=== PATIENT | male | born 2000 | race Caucasian/White ===

== ENCOUNTER 2022-12-22 17:26 | Inpatient (IN) ==
--- NOTE | 2022-12-22 17:34 | ED Triage Note ---
Date of Service December 22, 2022 History of Present Illness This patient was briefly evaluated while in triage. An abbreviated physical exam was performed. This patient is a 22-year-old Male who presents to the ED for evaluation of right-sided chest discomfort that he feels is intercostal pain. The patient r eports that he has not been doing any recent lifting or other strenuous activities. The pain radiates into the right shoulder blade region. Patient reports that he woke up this morning with the symptoms. The patient rates his discomfort a 10 out of 10. Physical Exam CONSTITUTIONAL: Healthy and well nourished. HEENT: No scleral icterus or conjunctival injection/pallor. NECK: Full active range of motion without discomfort. LYMPHATICS: No cervical chain adenopathy. RESPIRATORY: Clear to auscultation bilaterally with no wheezing, crackles, rhonchi or stridor. CARDIOVASCULAR: Regular rate and rhythm with no murmurs, rubs or gallops. GASTROINTESTINAL: Bowel sounds present in all quadrants. No focal tenderness to palpation. MUSCULOSKELETAL: No tenderness to palpation through the right anterior chest wall or costochondral joints INTEGUMENTARY: No rash or other significant dermatologic conditions noted. HEMATOLOGIC: No ecchymosis or petechiae. PSYCHIATRIC: Positive affect. NEUROLOGIC: No focal neurologic deficits noted. Initial orders for labs and / or imaging were placed and patient was placed in t he waiting area until a bed is available. Please see further documentation for the full ED course.
[2022-12-22 18:20] LABS: Hematocrit (blood only) 40.6 % (42.0-52.0); Mean Corpuscular Hemoglobin 29.3 pg (25.0-34.0); Mean Corpuscular Hgb Conc 34.5 g/dL (32.0-36.0); Mean Corpuscular Volume 84.9 fL (80.0-100.0); Mean Platelet Volume 9.9 fL (9.4-12.4); Platelet Count 180 K/uL (130-400); RDW Coefficient of Variation 12.5 % (11.5-14.5); RDW Standard Deviation 38.6 fL (36.4-46.3); Red Blood Count 4.78 M/uL (4.70-6.10)
[2022-12-22] MEDS ORDERED: KETOROLAC TROMETHAMINE 15 MG/ML VIAL IV STA (18:23)
[2022-12-22 18:30] LABS: Albumin Globulin Ratio 1.9 (0.9-2); Albumin Level 4.8 gm/dl (3.4-5.0); BUN Creatinine Ratio 16.4 (10-20); Bilirubin,Total 1.2 mg/dl (0.2-1.0); Calcium 9.5 mg/dl (8.6-10.3); Creatinine Clr Calc Pharmacy 97.9 ml/min; Est GFR (African American) 109.9 ml/min; Est GFR (Non-African American) 94.8 ml/min; Globulin 2.5 gm/dl (2.5-4.0); Potassium 4.2 mmol/L (3.5-5.1); Total Protein 7.3 gm/dl (6.0-8.3)
[2022-12-22 18:34] LABS: Troponin I High Sensitivity 4.1 pg/ml (0-20)
--- NOTE | 2022-12-22 18:34 | XRay Report ---
XR chest 1V portable CLINICAL HISTORY: Chest pain, nonspecific COMPARISON STUDY: No previous studies for comparison. FINDINGS: Lung volumes are normal. Hazy asymmetric airspace opacity within the mid to upper right ke g is present. There is no pneumothorax or pleural effusion. Cardiac size is normal. Mediastinal conto urs are normal. There is no evidence for pulmonary edema. IMPRESSION: Hazy asymmetric right mid to upper lung airspace opacity. The radiographic appearance is nonspecific but statistically reflects pneumonia. Post treatment radiographs to ensure resolution ar e recommended. ACT 112: Negative or not required by law. Electronically signed by: Vlado Peterson M.D. 12/22/2022 6:32 PM
[2022-12-22 18:40] LABS: INR 1.1 (0.9-1.1); Partial Thromboplastin Ratio 0.9; Partial Thromboplastin Time 23.8 Seconds (21.0-31.0); Prothrombin Time 11.6 Seconds (9.0-12.0)
[2022-12-22 18:41] LABS: D Dimer 1140 ug/L FEU (0-500)
[2022-12-22] MEDS ORDERED: ONDANSETRON INJ 2 MG/ML 2 ML VIAL IV STA ×2 (18:44→20:10)
[2022-12-22] MEDS ORDERED: SODIUM CHLORIDE 0.9% 1000ML 2,000 ML IV ONE (18:44)
[2022-12-22 18:57] LABS: Basophils # (auto) 0.01 K/uL (0-0.2); Basophils % (auto) 0.2 %; Immature Granulocytes # (auto) 0.01 K/uL (0.01-0.20); Immature Granulocytes % (auto) 0.2 %; Lymphocytes # (auto) 0.15 K/uL (1.2-3.4); Lymphocytes % (auto) 2.4 %; Monocytes # (auto) 0.16 K/uL (0.11-0.59); Monocytes % (auto) 2.6 %; Neutrophils # (auto) 5.87 K/uL (1.40-6.50); Neutrophils % (auto) 94.6 %
[2022-12-22] MEDS ORDERED: OPTIRAY 320 500ml IV ONE (19:13)
[2022-12-22] MEDS ORDERED: VANCOMYCIN CONSULT ACTIVE PRN (19:17)
[2022-12-22] MEDS ORDERED: PIPERACILLIN/TAZOBACTAM 4.5 GM/120 ML BAG IV ONE (19:17)
[2022-12-22] MEDS ORDERED: VANCOMYCIN HCL 1,250 MG in SODIUM CHLORIDE 0.9% 500 ML IV ONE (19:17)
--- NOTE | 2022-12-22 19:40 | Emergency Department Note ---
History of Present Illness General Chief Complaint: Shortness of Breath/Dyspnea Stated Complaint: SOB, CHEST PAIN, BACK PAIN Time Seen by Provider: 12/22/22 18:15 History of Present Illness Provider Complaint: shortness of breath and cough Onset (ago): day(s) (1) Severity: severe Consistency/Duration: + progressively worsening Maximum Pain Intensity: 10 Relieved By: + nothing Exacerbated By: + nothing Associated symptoms: + chest pain (R side), + cough and + nausea/vomiting; no rash HPI Narrative: Patient reports that he was drinking alcohol last night he reports only 4 beers. He reports waking up with vomiting. Home Medications Medication Instructions Recorded Confirmed Type ibuprofen 200 mg tablet (Advil) 400 mg PO Q6H PRN Fever Or Pain 12/22/22 12/22/22 History Allergies Allergy/AdvReac Type Severity Reaction Status Date / Time No Known Allergies Allergy Verified 12/22/22 20:27 Past Med/Surg History Medical History ADHD GERD (gastroesophageal reflux disease) History of asthma Childhood History of COVID-19 Dx 08/2020 > no current issues Kidney stones Nephrolithiasis Surgical History H/O cystoscopy Cystoscopy, ureteroscopy, laser lithotripsy (06/25/21): LMA at [facility] History of esophagogastroduodenoscopy (EGD) History of hernia repair History of nasal cauterization Family History Grandfather (Maternal) Heart disease Myocardial infarction Cancer Grandfather (Paternal) Heart disease Myocardial infarction Father Kidney stones Other No family history of adverse response to anesthesia Social History Smoking Status: Never smoker Second Hand Exposure: No; Hx Alcohol Use: Yes Alcohol type: beer Hx Substance Use: No Preferred Language: Cook Islander Communication Ability: Effective Cook Dessert Required: No Beliefs That Will Affect Care: None marital status: Single Current Living Situation: Alone Current Living Situation Comment: APARTMENT>NO ROOMATES current occupational status: student Feels Safe at Home: Yes Assistive Devices: None Physical Exam Vital Signs: Vital Signs - 24 hr 12/22/22 17:31 12/22/22 18:46 12/22/22 18:44 Temperature 36.8 C Temperature Source Temporal Artery Sc an Pulse Rate 132 H 128 H 125 H Pulse Rate [Apical ] Pulse Rhythm Pulse Rhythm [Apic al] Pulse Strength [Ap ical] Respiratory Rate 20 33 H Respiratory Effort / Characteristics Respiratory Depth Normal Respiratory Patter n Blood Pressure Blood Pressure [Ri ght Arm] Blood Pressure Gisselle n Blood Pressure Gisselle n [Right Arm] Blood Pressure Pos ition [Right Arm] Pulse Oximetry 98 93 Oxygen Delivery Me thod Room Air Room Air Oxygen Flow Rate Sepsis Recent Feve r Within 48 Hours No Sepsis New/Unexpla ined Change in Men hillary Status No Sepsis Action Take n by Nursing No Action Required Oxygen Flow Rate - Titration Pulse Oximetry Pos t Tiitration 12/22/22 18:45 12/22/22 18:47 12/22/22 19:14 Temperature Temperature Source Pulse Rate 126 H 124 H 124 H Pulse Rate [Apical ] Pulse Rhythm Regular Pulse Rhythm [Apic al] Pulse Strength [Ap ical] Respiratory Rate 25 H 32 H 30 H Respiratory Effort / Characteristics Respiratory Depth Respiratory Patter n Blood Pressure 111/48 L Blood Pressure [Ri ght Arm] Blood Pressure Gisselle n 69 Blood Pressure Gisselle n [Right Arm] Blood Pressure Pos ition [Right Arm] Pulse Oximetry 86 L Oxygen Delivery Me thod Room Air Oxygen Flow Rate Sepsis Recent Feve r Within 48 Hours Sepsis New/Unexpla ined Change in Men hillary Status Sepsis Action Take n by Nursing Oxygen Flow Rate - Titration Pulse Oximetry Pos t Tiitration 12/22/22 19:15 12/22/22 18:40 12/22/22 18:40 Temperature Temperature Source Pulse Rate Pulse Rate [Apical ] 135 H Pulse Rhythm Pulse Rhythm [Apic al] Regular Pulse Strength [Ap ical] Normal Respiratory Rate 30 H Respiratory Effort / Characteristics Non-Labored Sponta neous Non-Labored Sponta neous Respiratory Depth Normal Normal Respiratory Patter n Tachypnea Tachypnea Blood Pressure Blood Pressure [Ri ght Arm] 79/46 L Blood Pressure Gisselle n Blood Pressure Gisselle n [Right Arm] 57 Blood Pressure Pos ition [Right Arm] Lying Pulse Oximetry 86 L 93 Oxygen Delivery Me thod Room Air Room Air Room Air Oxygen Flow Rate Sepsis Recent Feve r Within 48 Hours Sepsis New/Unexpla ined Change in Men hillary Status Sepsis Action Take n by Nursing Oxygen Flow Rate - Titration 4 Pulse Oximetry Pos t Tiitration 91 12/22/22 19:11 12/22/22 19:15 12/22/22 19:17 Temperature Temperature Source Pulse Rate 122 H 122 H Pulse Rate [Apical ] Pulse Rhythm Pulse Rhythm [Apic al] Pulse Strength [Ap ical] Respiratory Rate 22 33 H Respiratory Effort / Characteristics Respiratory Depth Respiratory Patter n Blood Pressure 115/62 119/73 Blood Pressure [Ri ght Arm] Blood Pressure Gisselle n 79 88 Blood Pressure Gisselle n [Right Arm] Blood Pressure Pos ition [Right Arm] Pulse Oximetry 87 L 90 92 Oxygen Delivery Me thod Nasal Cannula Nasal Cannula Nasal Cannula Oxygen Flow Rate 4 4 4 Sepsis Recent Feve r Within 48 Hours Sepsis New/Unexpla ined Change in Men hillary Status Sepsis Action Take n by Nursing Oxygen Flow Rate - Titration Pulse Oximetry Pos t Tiitration 12/22/22 19:30 12/22/22 19:45 12/22/22 20:00 Temperature Temperature Source Pulse Rate 126 H 127 H 112 H Pulse Rate [Apical ] Pulse Rhythm Pulse Rhythm [Apic al] Pulse Strength [Ap ical] Respiratory Rate 27 H 25 H 25 H Respiratory Effort / Characteristics Respiratory Depth Respiratory Patter n Blood Pressure 111/73 115/70 Blood Pressure [Ri ght Arm] Blood Pressure Gisselle n 85 85 Blood Pressure Igsselle n [Right Arm] Blood Pressure Pos ition [Right Arm] Pulse Oximetry 91 89 L 89 L Oxygen Delivery Me thod Nasal Cannula Nasal Cannula Nasal Cannula Oxygen Flow Rate 4 4 4 Sepsis Recent Feve r Within 48 Hours Sepsis New/Unexpla ined Change in Men hillary Status Sepsis Action Take n by Nursing Oxygen Flow Rate - Titration Pulse Oximetry Pos t Tiitration 12/22/22 20:01 12/22/22 20:15 12/22/22 20:18 Temperature Temperature Source Pulse Rate 138 H 112 H 113 H Pulse Rate [Apical ] Pulse Rhythm Pulse Rhythm [Apic al] Pulse Strength [Ap ical] Respiratory Rate 27 H 26 H 19 Respiratory Effort / Characteristics Respiratory Depth Respiratory Patter n Blood Pressure 100/51 L 88/42 L Blood Pressure [Ri ght Arm] Blood Pressure Gisselle n 67 57 Blood Pressure Gisselle n [Right Arm] Blood Pressure Pos ition [Right Arm] Pulse Oximetry 87 L 85 L 88 L Oxygen Delivery Me thod Nasal Cannula Nasal Cannula Nasal Cannula Oxygen Flow Rate 4 4 6 Sepsis Recent Feve r Within 48 Hours Sepsis New/Unexpla ined Change in Men hillary Status Sepsis Action Take n by Nursing Oxygen Flow Rate - Titration Pulse Oximetry Pos t Tiitration 12/22/22 20:18 12/22/22 20:30 12/22/22 20:36 Temperature Temperature Source Pulse Rate 116 H 116 H Pulse Rate [Apical ] Pulse Rhythm Pulse Rhythm [Apic al] Pulse Strength [Ap ical] Respiratory Rate 26 H 30 H Respiratory Effort / Characteristics Respiratory Depth Respiratory Patter n Blood Pressure 86/45 L 78/46 L 75/49 L Blood Pressure [Ri ght Arm] Blood Pressure Gisselle n 58 56 57 Blood Pressure Gisselle n [Right Arm] Blood Pressure Pos ition [Right Arm] Pulse Oximetry 94 92 Oxygen Delivery Me thod Oxymask Oxymask Oxygen Flow Rate 10 10 Sepsis Recent Feve r Within 48 Hours Sepsis New/Unexpla ined Change in Men hillary Status Sepsis Action Take n by Nursing Oxygen Flow Rate - Titration Pulse Oximetry Pos t Tiitration 12/22/22 20:45 12/22/22 20:55 12/22/22 20:55 Temperature Temperature Source Pulse Rate 120 H 122 H Pulse Rate [Apical ] Pulse Rhythm Pulse Rhythm [Apic al] Pulse Strength [Ap ical] Respiratory Rate 32 H 17 Respiratory Effort / Characteristics Respiratory Depth Respiratory Patter n Blood Pressure 88/52 L 80/42 L Blood Pressure [Ri ght Arm] Blood Pressure Gisselle n 64 54 Blood Pressure Gisselle n [Right Arm] Blood Pressure Pos ition [Right Arm] Pulse Oximetry 86 L Oxygen Delivery Me thod Oxymask Oxygen Flow Rate 10 Sepsis Recent Feve r Within 48 Hours Sepsis New/Unexpla ined Change in Men hillary Status Sepsis Action Take n by Nursing Oxygen Flow Rate - Titration Pulse Oximetry Pos t Tiitration 12/22/22 20:58 12/22/22 21:00 12/22/22 21:05 Temperature Temperature Source Pulse Rate 124 H 113 H 118 H Pulse Rate [Apical ] Pulse Rhythm Pulse Rhythm [Apic al] Pulse Strength [Ap ical] Respiratory Rate 24 19 24 Respiratory Effort / Characteristics Respiratory Depth Respiratory Patter n Blood Pressure 69/47 L 78/45 L 86/57 L Blood Pressure [Ri ght Arm] Blood Pressure Gisselle n 54 56 66 Blood Pressure Gisselle n [Right Arm] Blood Pressure Pos ition [Right Arm] Pulse Oximetry 89 L 87 L 92 Oxygen Delivery Me thod Oxymask Oxymask Non-rebreather Oxygen Flow Rate 15 15 15 Sepsis Recent Feve r Within 48 Hours Sepsis New/Unexpla ined Change in Men hillary Status Sepsis Action Take n by Nursing Oxygen Flow Rate - Titration Pulse Oximetry Pos t Tiitration 12/22/22 21:09 Temperature Temperature Source Pulse Rate 118 H Pulse Rate [Apical ] Pulse Rhythm Pulse Rhythm [Apic al] Pulse Strength [Ap ical] Respiratory Rate 22 Respiratory Effort / Characteristics Respiratory Depth Respiratory Patter n Blood Pressure 87/55 L Blood Pressure [Ri ght Arm] Blood Pressure Gisselle n 65 Blood Pressure Gisselle n [Right Arm] Blood Pressure Pos ition [Right Arm] Pulse Oximetry Oxygen Delivery Me thod Oxygen Flow Rate Sepsis Recent Feve r Within 48 Hours Sepsis New/Unexpla ined Change in Men hillary Status Sepsis Action Take n by Nursing Oxygen Flow Rate - Titration Pulse Oximetry Pos t Tiitration Physical Exam: Physical Exam EYES: Conjunctivae and EOM are normal. Pupils are equal, round, and reactive to light. Right eye exhibits no discharge. Left eye exhibits no discharge. No scleral icterus. NECK: Normal range of motion. Neck supple. No JVD present. No spinous process tenderness present. No carotid bruit present. No rigidity. No tracheal deviation and normal range of motion present. No Brudzinski's sign and no Kernig's sign noted. CV: Tachycardic rate, regular rhythm, normal heart sounds and intact distal pulses. There is no peripheral edema. Palpable radial pulses bue. PULM/CHEST: Effort normal and breath sounds normal. No respiratory distress. No stridor. He has no wheezes. He has no rales. - Chest Wall: He exhibits no tenderness. ABD: The abdomen is soft. There is no tenderness. There is no rebound, no guarding. LYMPH: No cervical adenopathy. NEURO: Motor and sensation grossly intact. SKIN: Skin is warm and dry. He is not diaphoretic. PSYCH: He has a normal mood and affect. Behavior is normal. Judgment and thought content normal. Course Course 1814: The patient was evaluated in room C11. A complete history and physical exam was performed Cardiac monitoring: An order was placed for continuous cardiac monitoring. The monitor shows a rate of 120 with sinus tachycardia rhythm interpreted by me 1825: Chest x-ray reviewed by me shows right upper lobe infiltrate. 1850: Called to bedside by nursing. Patient tachycardic and hypotensive. Patient vomiting. 2 L normal saline ordered for the patient. Blood work from triage showed an elevated D-dimer. CTA of the chest as well as CT of the abdomen pelvis ordered for the patient. Lactic acid and blood cultures ordered for the patient. 1914: Patient hypoxic on room air. Started on nasal cannula 4 L which improved patient's oxygen saturation. Zosyn and vancomycin ordered for the patient as there is concerned that the patient might have aspirated after drinking alcohol and vomiting. 1999: CT of the chest negative for PE does confirm pneumonia. CT abdomen pelvis negative for obstruction or pancreatitis. Patient will be admitted to the [facility] hospitalist team. I did discuss with Dr. Alejo about the patient and she will evaluate the patient for PCU versus ICU. 2014: Patient hypotensive again. Third liter of IV fluids ordered by hospitalist team. 2100: Patient remains hypotensive. Patient having difficulty keeping his oxygen saturations elevated. BiPAP ordered for the patient. Levophed ordered for the patient. Discussed with hospitalist team to potentially place the patient in ICU. They will contact [facility]. They state to hold off on BiPAP at this time because they are afraid about the patient vomiting into the BiPAP. Patient placed on nonrebreather. 2134: [facility] bedside. Patient started on high flow nasal cannula by ICU te am. ICU team wants fourth liter IV fluids to see if the patient blood pressure responds well to the fourth liter before starting Levophed. Administered Medications Norepinephrine Bitartrate (Levophed/D5w) 4 mg in 250 mls @ 12.247 mls/hr IV .[id number] [facility]; Protocol Stop: 01/21/23 20:59 Last Titration: 12/22/22 22:01 Dose: 0.07 mcg/kg/min, 17.1 mls/hr Documented By: Titration: 12/22/22 21:46 Dose: 0.05 mcg/kg/min, 12.2 mls/hr Documented By: Titration: 12/22/22 21:22 Dose: 0 mcg/kg/min, 0 mls/hr Documented By: Admin: 12/22/22 21:05 Dose: 0.05 mcg/kg/min, 12.2 mls/hr Documented By: SANTOSH Co-signed By: AVA Pantoprazole Sodium 40 mg/ (Dextrose) 100 mls @ 20 mls/hr IV Q5H JANE Stop: 01/21/23 21:44 Last Admin: 12/22/22 21:53 Dose: 8 mg/hr, 20 mls/hr Documented By: SANTOSH Discontinued Medications Acetaminophen (Acetaminophen 1000 Mg/100 Ml Iv) Confirm Administered Dose 1,000 mg IV .STK-MED ONE Stop: 12/22/22 21:33 Last Admin: 12/22/22 21:34 Dose: 1,000 mg Documented By: SANTOSH Famotidine (Famotidine 20mg/5ml Iv Push) 20 mg IV NOW ONE Stop: 12/22/22 20:46 Last Admin: 12/22/22 20:41 Dose: 20 mg Documented By: AVA Sodium Chloride (Nss 1000ml) 2,000 mls @ 999 mls/hr IV .Q2H1M ONE Stop: 12/22/22 20:44 Last Infusion: 12/22/22 20:51 Dose: 0 mls/hr Documented By: Admin: 12/22/22 18:49 Dose: 999 mls/hr Documented By: FEDERICA Piperacillin Sod/Tazobactam Sod (Zosyn) 4.5 gm in 120 mls @ 240 mls/hr IV NOW ONE Stop: 12/22/22 19:46 Last Infusion: 12/22/22 20:50 Dose: 0 mls/hr Documented By: Admin: 12/22/22 19:30 Dose: 240 mls/hr Documented By: SANTOSH Vancomycin HCl 1,250 mg/ (Sodium Chloride) 525 mls @ 200 mls/hr IV NOW ONE Stop: 12/22/22 21:54 Last Admin: 12/22/22 20:03 Dose: 200 mls/hr Documented By: AVA Lactated Ringer's (Lr) 1,000 mls @ 999 mls/hr IV .Q1H1M ONE Stop: 12/22/22 21:19 Last Infusion: 12/22/22 22:06 Dose: 0 mls/hr Documented By: Admin: 12/22/22 20:25 Dose: 999 mls/hr Documented By: AVA Lactated Ringer's (Lr) 1,000 mls @ 999 mls/hr IV .Q1H1M ONE Stop: 12/22/22 22:20 Last Infusion: 12/22/22 22:09 Dose: 0 mls/hr Documented By: Admin: 12/22/22 21:22 Dose: 999 mls/hr Documented By: SANTOSH Ioversol (Optiray 320 500ml) 114 ml IV ONCE ONE Stop: 12/22/22 19:14 Last Admin: 12/22/22 19:13 Dose: 114 ml Documented By: JESSEE Ketorolac Tromethamine (Ketorolac Tromethamine 15 Mg/Ml Vial) 15 mg IV NOW STA Stop: 12/22/22 18:24 Last Admin: 12/22/22 18:40 Dose: 15 mg Documented By: FEDERICA Morphine Sulfate (Morphine Sulfate 2 Mg/Ml Carp) 2 mg IV NOW STA Stop: 12/22/22 19:42 Last Admin: 12/22/22 19:58 Dose: 2 mg Documented By: AVA Ondansetron HCl (Ondansetron Inj 2 Mg/Ml 2 Ml Vial) 4 mg IV NOW STA Stop: 12/22/22 18:45 Last Admin: 12/22/22 18:49 Dose: 4 mg Documented By: FEDERICA Ondansetron HCl (Ondansetron Inj 2 Mg/Ml 2 Ml Vial) 4 mg IV NOW STA Stop: 12/22/22 20:11 Last Admin: 12/22/22 20:22 Dose: 4 mg Documented By: AVA Medical Decision Making Laboratory Data Attestation: I reviewed the patient's lab results. 12/22/22 17:50 12/22/22 17:50 Lab Results 12/22/22 12/22/22 12/22/22 Range/Units 17:50 17:50 17:50 WBC 6.20 (4.8-10.8) K/ul RBC 4.78 (4.70-6.10) M/uL Hgb 14.0 (14.0-18.0) g/dl Hct 40.6 L (42.0-52.0) % MCV 84.9 (80.0-100.0) fL MCH 29.3 (25.0-34.0) pg MCHC 34.5 (32.0-36.0) g/dL RDW Std Deviation 38.6 (36.4-46.3) fL RDW Coeff of Cecilia 12.5 (11.5-14.5) % Plt Count 180 (130-400) K/uL MPV 9.9 (9.4-12.4) fL Immature Gran % (Auto) 0.2 % Neut % (Auto) 94.6 % Lymph % (Auto) 2.4 % [place] % (Auto) 2.6 % Eos % (Auto) 0.0 % Baso % (Auto) 0.2 % Neut # (Auto) 5.87 (1.40-6.50) K/uL Lymph # (Auto) 0.15 L (1.2-3.4) K/uL [place] # (Auto) 0.16 (0.11-0.59) K/uL Eos # (Auto) 0.00 (0-0.50) K/uL Baso # (Auto) 0.01 (0-0.2) K/uL Immature Gran # (Auto) 0.01 (0.01-0.20) K/uL ESR (0-15) mm/hr PT 11.6 (9.0-12.0) Seconds INR 1.1 (0.9-1.1) APTT 23.8 (21.0-31.0) Seconds PTT Ratio 0.9 D-Dimer 1140 H* (0-500) ug/L FEU ABG pH (7.35-7.45) ABG pCO2 (35-46) mmHg ABG pO2 (80-95) mmHg ABG HCO3 (19-24) mmol/L ABG O2 Saturation (90-95) % ABG Base Excess (-9-1.8) mEq/L Bob Test (Pos) Oxygen Given Sodium 137 (136-145) mmol/L Potassium 4.2 (3.5-5.1) mmol/L Chloride 103 (98-107) mmol/L Carbon Dioxide 24 (21-32) mmol/L Anion Gap 10 (3-11) BUN 18 (6-23) mg/dl Creatinine 1.10 (0.6-1.4) mg/dl Est Cr Clr Drug Dosing 97.9 ml/min Est GFR ( Amer) 109.9 ml/min Est GFR (Non-Af Amer) 94.8 ml/min BUN/Creatinine Ratio 16.4 (10-20) Glucose 129 H (70-99(Fasting)) mg/dl Lactate (0.4-2.0) mmol/L Calcium 9.5 (8.6-10.3) mg/dl Total Bilirubin 1.2 H (0.2-1.0) mg/dl AST 23 (13-39) U/L ALT 11 (7-52) U/L Alkaline Phosphatase 45 (34-104) U/L Troponin I High Sens 4.1 (0-20) pg/ml C-Reactive Protein (0-0.5) mg/dl Total Protein 7.3 (6.0-8.3) gm/dl Albumin 4.8 (3.4-5.0) gm/dl Globulin 2.5 (2.5-4.0) gm/dl Albumin/Globulin Ratio 1.9 (0.9-2) Lipase 15 (11-82) U/L Procalcitonin (0-0.5) ng/ml Random Cortisol mcg/dl SARS-CoV-2 (PCR) (Negative) 12/22/22 12/22/22 12/22/22 Range/Units 17:50 17:50 17:50 WBC (4.8-10.8) K/ul RBC (4.70-6.10) M/uL Hgb (14.0-18.0) g/dl Hct (42.0-52.0) % MCV (80.0-100.0) fL MCH (25.0-34.0) pg MCHC (32.0-36.0) g/dL RDW Std Deviation (36.4-46.3) fL RDW Coeff of Cecilia (11.5-14.5) % Plt Count (130-400) K/uL MPV (9.4-12.4) fL Immature Gran % (Auto) % Neut % (Auto) % Lymph % (Auto) % [place] % (Auto) % Eos % (Auto) % Baso % (Auto) % Neut # (Auto) (1.40-6.50) K/uL Lymph # (Auto) (1.2-3.4) K/uL [place] # (Auto) (0.11-0.59) K/uL Eos # (Auto) (0-0.50) K/uL Baso # (Auto) (0-0.2) K/uL Immature Gran # (Auto) (0.01-0.20) K/uL ESR 2 (0-15) mm/hr PT (9.0-12.0) Seconds INR (0.9-1.1) APTT (21.0-31.0) Seconds PTT Ratio D-Dimer (0-500) ug/L FEU ABG pH (7.35-7.45) ABG pCO2 (35-46) mmHg ABG pO2 (80-95) mmHg ABG HCO3 (19-24) mmol/L ABG O2 Saturation (90-95) % ABG Base Excess (-9-1.8) mEq/L Bob Test (Pos) Oxygen Given Sodium (136-145) mmol/L Potassium (3.5-5.1) mmol/L Chloride (98-107) mmol/L Carbon Dioxide (21-32) mmol/L Anion Gap (3-11) BUN (6-23) mg/dl Creatinine (0.6-1.4) mg/dl Est Cr Clr Drug Dosing ml/min Est GFR ( Amer) ml/min Est GFR (Non-Af Amer) ml/min BUN/Creatinine Ratio (10-20) Glucose (70-99(Fasting)) mg/dl Lactate (0.4-2.0) mmol/L Calcium (8.6-10.3) mg/dl Total Bilirubin (0.2-1.0) mg/dl AST (13-39) U/L ALT (7-52) U/L Alkaline Phosphatase (34-104) U/L Troponin I High Sens (0-20) pg/ml C-Reactive Protein 3.61 H (0-0.5) mg/dl Total Protein (6.0-8.3) gm/dl Albumin (3.4-5.0) gm/dl Globulin (2.5-4.0) gm/dl Albumin/Globulin Ratio (0.9-2) Lipase (11-82) U/L Procalcitonin (0-0.5) ng/ml Random Cortisol 52.08 mcg/dl SARS-CoV-2 (PCR) (Negative) 12/22/22 12/22/22 12/22/22 Range/Units 17:50 18:48 20:10 WBC (4.8-10.8) K/ul RBC (4.70-6.10) M/uL Hgb (14.0-18.0) g/dl Hct (42.0-52.0) % MCV (80.0-100.0) fL MCH (25.0-34.0) pg MCHC (32.0-36.0) g/dL RDW Std Deviation (36.4-46.3) fL RDW Coeff of Cecilia (11.5-14.5) % Plt Count (130-400) K/uL MPV (9.4-12.4) fL Immature Gran % (Auto) % Neut % (Auto) % Lymph % (Auto) % [place] % (Auto) % Eos % (Auto) % Baso % (Auto) % Neut # (Auto) (1.40-6.50) K/uL Lymph # (Auto) (1.2-3.4) K/uL [place] # (Auto) (0.11-0.59) K/uL Eos # (Auto) (0-0.50) K/uL Baso # (Auto) (0-0.2) K/uL Immature Gran # (Auto) (0.01-0.20) K/uL ESR (0-15) mm/hr PT (9.0-12.0) Seconds INR (0.9-1.1) APTT (21.0-31.0) Seconds PTT Ratio D-Dimer (0-500) ug/L FEU ABG pH (7.35-7.45) ABG pCO2 (35-46) mmHg ABG pO2 (80-95) mmHg ABG HCO3 (19-24) mmol/L ABG O2 Saturation (90-95) % ABG Base Excess (-9-1.8) mEq/L Bob Test (Pos) Oxygen Given Sodium (136-145) mmol/L Potassium (3.5-5.1) mmol/L Chloride (98-107) mmol/L Carbon Dioxide (21-32) mmol/L Anion Gap (3-11) BUN (6-23) mg/dl Creatinine (0.6-1.4) mg/dl Est Cr Clr Drug Dosing ml/min Est GFR ( Amer) ml/min Est GFR (Non-Af Amer) ml/min BUN/Creatinine Ratio (10-20) Glucose (70-99(Fasting)) mg/dl Lactate 2.5 H* (0.4-2.0) mmol/L Calcium (8.6-10.3) mg/dl Total Bilirubin (0.2-1.0) mg/dl AST (13-39) U/L ALT (7-52) U/L Alkaline Phosphatase (34-104) U/L Troponin I High Sens (0-20) pg/ml C-Reactive Protein (0-0.5) mg/dl Total Protein (6.0-8.3) gm/dl Albumin (3.4-5.0) gm/dl Globulin (2.5-4.0) gm/dl Albumin/Globulin Ratio (0.9-2) Lipase (11-82) U/L Procalcitonin 15.12 H (0-0.5) ng/ml Random Cortisol mcg/dl SARS-CoV-2 (PCR) NEGATIVE (Negative) 12/22/22 12/22/22 Range/Units 20:30 20:42 WBC (4.8-10.8) K/ul RBC (4.70-6.10) M/uL Hgb (14.0-18.0) g/dl Hct (42.0-52.0) % MCV (80.0-100.0) fL MCH (25.0-34.0) pg MCHC (32.0-36.0) g/dL RDW Std Deviation (36.4-46.3) fL RDW Coeff of Cecilia (11.5-14.5) % Plt Count (130-400) K/uL MPV (9.4-12.4) fL Immature Gran % (Auto) % Neut % (Auto) % Lymph % (Auto) % [place] % (Auto) % Eos % (Auto) % Baso % (Auto) % Neut # (Auto) (1.40-6.50) K/uL Lymph # (Auto) (1.2-3.4) K/uL [place] # (Auto) (0.11-0.59) K/uL Eos # (Auto) (0-0.50) K/uL Baso # (Auto) (0-0.2) K/uL Immature Gran # (Auto) (0.01-0.20) K/uL ESR (0-15) mm/hr PT (9.0-12.0) Seconds INR (0.9-1.1) APTT (21.0-31.0) Seconds PTT Ratio D-Dimer (0-500) ug/L FEU ABG pH 7.40 (7.35-7.45) ABG pCO2 32 L (35-46) mmHg ABG pO2 59 L (80-95) mmHg ABG HCO3 20 (19-24) mmol/L ABG O2 Saturation 92.1 (90-95) % ABG Base Excess -4.0 (-9-1.8) mEq/L Bob Test Pos (Pos) Oxygen Given 50 Sodium (136-145) mmol/L Potassium (3.5-5.1) mmol/L Chloride (98-107) mmol/L Carbon Dioxide (21-32) mmol/L Anion Gap (3-11) BUN (6-23) mg/dl Creatinine (0.6-1.4) mg/dl Est Cr Clr Drug Dosing ml/min Est GFR ( Amer) ml/min Est GFR (Non-Af Amer) ml/min BUN/Creatinine Ratio (10-20) Glucose (70-99(Fasting)) mg/dl Lactate 2.7 H* (0.4-2.0) mmol/L Calcium (8.6-10.3) mg/dl Total Bilirubin (0.2-1.0) mg/dl AST (13-39) U/L ALT (7-52) U/L Alkaline Phosphatase (34-104) U/L Troponin I High Sens (0-20) pg/ml C-Reactive Protein (0-0.5) mg/dl Total Protein (6.0-8.3) gm/dl Albumin (3.4-5.0) gm/dl Globulin (2.5-4.0) gm/dl Albumin/Globulin Ratio (0.9-2) Lipase (11-82) U/L Procalcitonin (0-0.5) ng/ml Random Cortisol mcg/dl SARS-CoV-2 (PCR) (Negative) Imaging Data Attestation: I personally reviewed and interpreted this imaging study as follows: My Impression: Chest x-ray: Right upper lobe pneumonia. Radiologist's Impression: Chest X-Ray 12/22/22 17:35 XR chest 1V portable CLINICAL HISTORY: Chest pain, nonspecific COMPARISON STUDY: No previous studies for comparison. FINDINGS: Lung volumes are normal. Hazy asymmetric airspace opacity within the mid to upper right lung is present. There is no pneumothorax or pleural effusion. Cardiac size is normal. Mediastinal contours are normal. There is no evidence for pulmonary edema. IMPRESSION: Hazy asymmetric right mid to upper lung airspace opacity. The radiographic appearance is nonspecific but statistically reflects pneumonia. Post treatment radiographs to ensure resolution are recommended. ACT 112: Negative or not required by law. Electronically signed by: Valdo Peterson M.D. 12/22/2022 6:32 PM Abdomen/Pelvis CT 12/22/22 18:48 Exam(s): CT ABDOMEN + PELVIS With Contrast IV Amt: 114 ml optiray EXAM: CT Abdomen and Pelvis With Intravenous Contrast CLINICAL HISTORY: Reason for exam: vomitting. TECHNIQUE: Axial computed tomography images of the abdomen and pelvis with intravenous contrast. CTDI is 40.88 mGy and DLP is 767.44 mGy-cm. Automated exposure control was utilized for the study. A dose lowering technique was utilized adhering to the principles of ALARA. CONTRAST: Patient received 114 ml optiray of IV contrast COMPARISON: No relevant prior studies available. FINDINGS: Lung bases: Unremarkable. No mass. No consolidation. ABDOMEN: Liver: Unremarkable. No mass. Gallbladder and bile ducts: Unremarkable. No calcified stones. No ductal dilation. Pancreas: Unremarkable. No mass. No ductal dilation. Spleen: Unremarkable. No splenomegaly. Adrenals: Unremarkable. No mass. Kidneys and ureters: Mild fullness of the left renal collecting system. No delayed nephrogram. Stomach and bowel: Mild wall thickening of small bowel, correlate for mild enteritis. Liquid stool in the colon, consistent with diarrheal disease. No obstruction. PELVIS: Appendix: No findings to suggest acute appendicitis. Bladder: Unremarkable. No mass. Reproductive: Unremarkable as visualized. ABDOMEN and PELVIS: Intraperitoneal space: Unremarkable. No free air. No significant fluid collection. Bones/joints: No acute fracture. No dislocation. Soft tissues: Unremarkable. Vasculature: Unremarkable. No abdominal aortic aneurysm. Lymph nodes: Unremarkable. No enlarged lymph nodes. IMPRESSION: 1. Mild wall thickening of small bowel, correlate for mild enteritis. 2. Liquid stool in the colon, consistent with diarrheal disease. Electronically signed by: Marc Oakes MD 12/22/22 19:52 PM Chest CTA 12/22/22 18:48 Exam(s): CTA CHEST IV Amt: 114 mnl optiray EXAM: CT Angiography Chest With Intravenous Contrast CLINICAL HISTORY: Reason for exam: ro pe. TECHNIQUE: Axial computed tomographic angiography images of the chest with intravenous contrast. CTDI is 40.88 mGy and DLP is 767.44 mGy-cm. Automated exposure control was utilized for the study. A dose lowering technique was utilized adhering to the principles of ALARA. MIP reconstructed images were created and reviewed. COMPARISON: No relevant prior studies available. FINDINGS: Pulmonary arteries: Unremarkable. No pulmonary embolism. Aorta: No acute findings. No thoracic aortic aneurysm. Lungs: Airspace consolidation in the right upper lobe, consistent with lobar pneumonia. Mild patchy opacity is also present in the right middle lobe and right lower lobe, to a lesser degree. Pleural space: Unremarkable. No significant effusion. No pneumothorax. Heart: Unremarkable. No cardiomegaly. No significant pericardial effusion. No evidence of RV dysfunction. Bones/joints: No acute fracture. No dislocation. Soft tissues: Unremarkable. Lymph nodes: Unremarkable. No enlarged lymph nodes. IMPRESSION: Airspace consolidation in the right upper lobe, consistent with lobar pneumonia. Electronically signed by: Marc Oakes MD 12/22/22 19:51 PM ECG Data Attestation: I personally reviewed and interpreted this ECG as follows: Interpretation: Sinus tachycardia with rate of 117. [place] QRS and QTc intervals within normal limits. No ST elevation or ST depression. [facility] Narrative 1815: The patient was evaluated in room C11. A complete history and physical exam was performed Cardiac monitoring: An order was placed for continuous cardiac monitoring. The monitor shows a rate of 120 with sinus tachycardia rhythm interpreted by nh 1825: Chest x-ray reviewed by nh shows right upper lobe infiltrate. 1850: Called to bedside by nursing. Patient tachycardic and hypotensive. Patient vomiting. 2 L normal saline ordered for the patient. Blood work from triage showed an elevated D-dimer. CTA of the chest as well as CT of the abdomen pelvis ordered for the patient. Lactic acid and blood cultures ordered for the patient. 1915: Patient hypoxic on room air. Started on nasal cannula 4 L which improved patient's oxygen saturation. Zosyn and vancomycin ordered for the patient as there is concerned that the patient might have aspirated after drinking alcohol and vomiting. 2000: CT of the chest negative for PE does confirm pneumonia. CT abdomen pelvis negative for obstruction or pancreatitis. Patient will be admitted to the [facility] hospitalist team. I did discuss with Dr. Alejo about the patient and she will evaluate the patient for PCU versus ICU. 2014: Patient hypotensive again. Third liter of IV fluids ordered by hospitalist team. 2100: Patient remains hypotensive. Patient having difficulty keeping his oxygen saturations elevated. BiPAP ordered for the patient. Levophed ordered for the patient. Discussed with hospitalist team to potentially place the patient in ICU. They will contact [facility]. They state to hold off on BiPAP at this time because they are afraid about the patient vomiting into the BiPAP. Patient placed on nonrebreather. 2134: [facility] bedside. Patient started on high flow nasal cannula by ICU team. ICU team wants fourth liter IV fluids to see if the patient blood pressure responds well to the fourth liter before starting Levophed. Impression & Plan Septic shock, Aspiration pneumonia Critical Care Time Critical Care Time: Yes Total Critical Care Time: 90 I have personally spent greater than 90 minutes of critical care time in the direct management of this patient. This includes bedside care, interpretation of diagnostic studies, and testing, discussion with consultants, patient, and family members, and other required patient management activities. This 90 minutes is in excess of all separately billable procedures. Discharge Plan Visit Data Chief Complaint: Shortness of Breath/Dyspnea Stated Complaint: SOB, CHEST PAIN, BACK PAIN ED Provider: Baldomero Rapp Discharge Problem: Septic shock, Aspiration pneumonia Patient Disposition: Admitted As Inpatient Discharge Instructions Interventions: ED Discharge Assessment Last Done: 12/22/22 21:56
[2022-12-22] MEDS ORDERED: MoRPHine SULFATE 2 MG/ML CARP IV STA (19:41)
--- NOTE | 2022-12-22 19:52 | CT Scan Report ---
Exam(s): CTA CHEST IV Amt: 114 mnl optiray EXAM: CT Angiography Chest With Intravenous Contrast CLINICAL HISTORY: Reason for exam: ro pe. TECHNIQUE: Axial computed tomographic angiography images of the chest with intravenous contrast. CTDI is 40.88 mGy and DLP is 767.44 mGy-cm. Automated exposure control was utilized for the study. A dose lowering technique was utilized adhering to the principles of ALARA. MIP reconstructed images were created and reviewed. COMPARISON: No relevant prior studies available. FINDINGS: Pulmonary arteries: Unremarkable. No pulmonary embolism. Aorta: No acute findings. No thoracic aortic aneurysm. Lungs: Airspace consolidation in the right upper lobe, consistent with lobar pneumonia. Mild patchy opacity is also present in the right middle lobe and right lower lobe, to a lesser degree. Pleural space: Unremarkable. No significant effusion. No pneumothorax. Heart: Unremarkable. No cardiomegaly. No significant pericardial effusion. No evidence of RV dysfunction. Bones/joints: No acute fracture. No dislocation. Soft tissues: Unremarkable. Lymph nodes: Unremarkable. No enlarged lymph nodes. IMPRESSION: Airspace consolidation in the right upper lobe, consistent with lobar pneumonia. Electronically signed by: Marc Oakes MD 12/22/22 19:51 PM
--- NOTE | 2022-12-22 19:53 | CT Scan Report ---
Exam(s): CT ABDOMEN + PELVIS With Contrast IV Amt: 114 ml optiray EXAM: CT Abdomen and Pelvis With Intravenous Contrast CLINICAL HISTORY: Reason for exam: vomitting. TECHNIQUE: Axial computed tomography images of the abdomen and pelvis with intravenous contrast. CTDI is 40.88 mGy and DLP is 767.44 mGy-cm. Automated exposure control was utilized for the study. A dose lowering technique was utilized adhering to the principles of ALARA. CONTRAST: Patient received 114 ml optiray of IV contrast COMPARISON: No relevant prior studies available. FINDINGS: Lung bases: Unremarkable. No mass. No consolidation. ABDOMEN: Liver: Unremarkable. No mass. Gallbladder and bile ducts: Unremarkable. No calcified stones. No ductal dilation. Pancreas: Unremarkable. No mass. No ductal dilation. Spleen: Unremarkable. No splenomegaly. Adrenals: Unremarkable. No mass. Kidneys and ureters: Mild fullness of the left renal collecting system. No delayed nephrogram. Stomach and bowel: Mild wall thickening of small bowel, correlate for mild enteritis. Liquid stool in the colon, consistent with diarrheal disease. No obstruction. PELVIS: Appendix: No findings to suggest acute appendicitis. Bladder: Unremarkable. No mass. Reproductive: Unremarkable as visualized. ABDOMEN and PELVIS: Intraperitoneal space: Unremarkable. No free air. No significant fluid collection. Bones/joints: No acute fracture. No dislocation. Soft tissues: Unremarkable. Vasculature: Unremarkable. No abdominal aortic aneurysm. Lymph nodes: Unremarkable. No enlarged lymph nodes. IMPRESSION: 1. Mild wall thickening of small bowel, correlate for mild enteritis. 2. Liquid stool in the colon, consistent with diarrheal disease. Electronically signed by: Marc Oakes MD 12/22/22 19:52 PM
--- NOTE | 2022-12-22 20:05 | History & Physical Report ---
Date of Service December 22, 2022 Assessment & Plan (1) Sepsis due to pneumonia: Plan: -Admit to the ICU -The patient is currently afebrile, hypotensive with systolic BP in the 80's, and currently saturating in the low 90's on HFNC at 40L/min at 100% FiO2 -The patient likely has aspiration pneumonia due to intractable nausea and vomiting after drinking last night -Chest xray and CTA of the chest showing a RUL opacity, negative for PE and without other acute abnormalities -CTA of the abd/pelvis with con mild wall thickening of the small bowel and liquid stool in the colon -S/P 4L total at this time, BP temporarily stabilized, if he continues to drop will start Levophed -STAT abg ordered -S/P one dose of Zosyn and Vancomycin; will continue both for now and obtain MRSA swab, if negative and discontinue Vancomycin -Incentive spirometry, flutter therapy, scheduled DuoNebs, prn Robitussin -BL SCD's for DVT PPX -AM CBC, CMP, mag (2) Hematemesis: Plan: -Patient noted to have hematemesis at the time of the admission -Likely has a component of gastritis/esophagus due to drinking -S/P one dose each of IV famotidine and protonix, will convert to protonix drip now -Keep NPO for now -Prn Zofran (3) Acute respiratory failure with hypoxia: Plan: -See sepsis due to pneumonia (4) Aspiration into airway: Plan: -See sepsis due to pneumonia Plan The patient was seen with and discussed with Dr. Mccann at the time of the admission History of Present Illness Chief Complaint: right-sided chest pain Primary Care Provider: [facility]IVE PCP Harrison is a 22 year old male with a PMH significant for previous kidney stones who presented to the [facility] ED on 12/22/22 with a chief complaint of right-sided chest pain. In the ED the patient was initially found to afebrile, hypotensive at 79/46, and hypoxic at 86% on RA. Labs were remarkable for a CBC WNL, D-dimer of 1140, stable Cr of 1.10, lactate of 2.5, total bili of 1.2, otherwise LFT's WNL, initial high sen trop of 4.1,. Chest xray was read as "Hazy asymmetric right mid to upper lung airspace opacity. The radiographic appearance is nonspecific but statistically reflects pneumonia. Post treatment radiographs to ensure resolution are recommended.". CTA of the chest with PE protocol was read as "Airspace consolidation in the right upper lobe, consistent with lobar pneumonia.". CT of the abd/pelvis w/IV con was read as "1. Mild wall thickening of small bowel, correlate for mild enteritis. 2.Liquid stool in the colon, consistent with diarrheal disease.". Prior to admission the patient received his sepsis fluid bolus of 2L NSS, a dose of vancomycin and Zosyn, 2 mg IV morphine, 15 mg IV toradol, and 4 mg IV zofran. At the time of the exam the patient was sitting in bed and appears acute ill, currently saturating at 90% on 10L Oxymask. He states that he has had a non- productive cough for "a few months". He was out drinking last night and states that he had multiple episodes of nausea an vomiting since. He states he woke up this am with right chest pain with radiation to his right back. He has been having a productive cough with blood-tinged sputum. He denies being on any medications at this time. When asked about his current work of breathing he states he feels as though he can only take shallow breaths due to his chest pain. He has been having fevers and chills and currently has epigastric abdominal pain. He denies recent fever, chills, dysuria, hematuria, and recent trauma. Please refer to Dr. Mccann's attestation for any changes to the treatment plan Allergies Allergy/AdvReac Type Severity Reaction Status Date / Time No Known Allergies Allergy Verified 12/22/22 20:27 Home Medications Medication Instructions Recorded Confirmed Type ibuprofen 200 mg tablet (Advil) 400 mg PO Q6H PRN Fever Or Pain 12/22/22 12/22/22 History Past Med/Surg History Medical History ADHD GERD (gastroesophageal reflux disease) History of asthma Childhood History of COVID-19 Dx 08/2020 > no current issues Kidney stones Nephrolithiasis Surgical History H/O cystoscopy Cystoscopy, ureteroscopy, laser lithotripsy (06/25/21): LMA at [facility] History of esophagogastroduodenoscopy (EGD) History of hernia repair History of nasal cauterization Family History Grandfather (Maternal) Heart disease Myocardial infarction Cancer Grandfather (Paternal) Heart disease Myocardial infarction Father Kidney stones Other No family history of adverse response to anesthesia Social History Smoking Status: Never smoker Second Hand Exposure: No; Hx Alcohol Use: Yes Alcohol type: beer Hx Substance Use: No Preferred Language: Malawian Communication Ability: Effective Network Professional Required: No Beliefs That Will Affect Care: None marital status: Single Current Living Situation: Alone Current Living Situation Comment: APARTMENT>NO ROOMATES current occupational status: student Feels Safe at Home: Yes Assistive Devices: None Physical Exam Physical Exam: Physical Exam: General: In no acute distress, stated age, toxic appearing HEENT: Normocephalic, atraumatic, ashen complexity, no scleral icterus, pupils around round, symmetrical, and reactive to light, dry mucus membranes, trachea midline, no thyromegaly Chest/Pulm: No respiratory distress, symmetrical chest expansion, rhonchi noted in the RUL, otherwise CTA Cardiac: tachycardic rate, regular rhythm, no murmurs noted Abdomen: Negative for ascites and bruising, normoactive bowel sounds, soft, mildly tender to palpation in the epigastric region, no rebound tenderness Musculoskeletal: Symmetrical and without signs of acute trauma, upper and lower extremities with full ROM, no atrophy, spasticity, or flaccidity Extremities: Radial, dorsalis pedis, and posterior tibial pulses are intact and symmetrical, no edema noted in the BL LE's Skin: Warm, dry, no rashes , lesions, or scars noted Neuro: Alert and oriented to person, place, month, year, and president, no focal defects, no tremors noted Psych: No acute distress, calm and cooperative during the exam Results & Data Results & Data Vital Signs (Past 12 Hours) Vital Signs Temp Pulse Pulse Resp BP BP Pulse Ox 12/22/22 18:40 135 H 30 H 79/46 L 93 12/22/22 18:40 12/22/22 19:15 86 L 12/22/22 19:14 124 H 30 H 86 L 12/22/22 18:47 124 H 32 H 111/48 L 12/22/22 18:45 126 H 25 H 12/22/22 18:44 125 H 33 H 93 12/22/22 18:46 128 H 12/22/22 17:31 36.8 C 132 H 20 98 O2 Del Method 12/22/22 18:40 Room Air 12/22/22 18:40 Room Air 12/22/22 19:15 Room Air 12/22/22 19:14 Room Air 12/22/22 18:47 12/22/22 18:45 12/22/22 18:44 Room Air 12/22/22 18:46 12/22/22 17:31 Room Air Laboratory Results Abnormal lab results 12/22/22 12/22/22 12/22/22 Range/Units 17:50 17:50 17:50 Hct 40.6 L (42.0-52.0) % Lymph # (Auto) 0.15 L (1.2-3.4) K/uL D-Dimer 1140 H* (0-500) ug/L FEU Glucose 129 H (70-99(Fasting)) mg/dl Lactate (0.4-2.0) mmol/L Total Bilirubin 1.2 H (0.2-1.0) mg/dl 12/22/22 Range/Units 18:48 Hct (42.0-52.0) % Lymph # (Auto) (1.2-3.4) K/uL D-Dimer (0-500) ug/L FEU Glucose (70-99(Fasting)) mg/dl Lactate 2.5 H* (0.4-2.0) mmol/L Total Bilirubin (0.2-1.0) mg/dl Diagnostic Findings Chest X-Ray 12/22/22 17:35 XR chest 1V portable CLINICAL HISTORY: Chest pain, nonspecific COMPARISON STUDY: No previous studies for comparison. FINDINGS: Lung volumes are normal. Hazy asymmetric airspace opacity within the mid to upper right lung is present. There is no pneumothorax or pleural effusion. Cardiac size is normal. Mediastinal contours are normal. There is no evidence for pulmonary edema. IMPRESSION: Hazy asymmetric right mid to upper lung airspace opacity. The radiographic appearance is nonspecific but statistically reflects pneumonia. Post treatment radiographs to ensure resolution are recommended. ACT 112: Negative or not required by law. Electronically signed by: Valdo Peterson M.D. 12/22/2022 6:32 PM Abdomen/Pelvis CT 12/22/22 18:48 Exam(s): CT ABDOMEN + PELVIS With Contrast IV Amt: 114 ml optiray EXAM: CT Abdomen and Pelvis With Intravenous Contrast CLINICAL HISTORY: Reason for exam: vomitting. TECHNIQUE: Axial computed tomography images of the abdomen and pelvis with intravenous contrast. CTDI is 40.88 mGy and DLP is 767.44 mGy-cm. Automated exposure control was utilized for the study. A dose lowering technique was utilized adhering to the principles of ALARA. CONTRAST: Patient received 114 ml optiray of IV contrast COMPARISON: No relevant prior studies available. FINDINGS: Lung bases: Unremarkable. No mass. No consolidation. ABDOMEN: Liver: Unremarkable. No mass. Gallbladder and bile ducts: Unremarkable. No calcified stones. No ductal dilation. Pancreas: Unremarkable. No mass. No ductal dilation. Spleen: Unremarkable. No splenomegaly. Adrenals: Unremarkable. No mass. Kidneys and ureters: Mild fullness of the left renal collecting system. No delayed nephrogram. Stomach and bowel: Mild wall thickening of small bowel, correlate for mild enteritis. Liquid stool in the colon, consistent with diarrheal disease. No obstruction. PELVIS: Appendix: No findings to suggest acute appendicitis. Bladder: Unremarkable. No mass. Reproductive: Unremarkable as visualized. ABDOMEN and PELVIS: Intraperitoneal space: Unremarkable. No free air. No significant fluid collection. Bones/joints: No acute fracture. No dislocation. Soft tissues: Unremarkable. Vasculature: Unremarkable. No abdominal aortic aneurysm. Lymph nodes: Unremarkable. No enlarged lymph nodes. IMPRESSION: 1. Mild wall thickening of small bowel, correlate for mild enteritis. 2. Liquid stool in the colon, consistent with diarrheal disease. Electronically signed by: Marc Oakes MD 12/22/22 19:52 PM Chest CTA 12/22/22 18:48 Exam(s): CTA CHEST IV Amt: 114 mnl optiray EXAM: CT Angiography Chest With Intravenous Contrast CLINICAL HISTORY: Reason for exam: ro pe. TECHNIQUE: Axial computed tomographic angiography images of the chest with intravenous contrast. CTDI is 40.88 mGy and DLP is 767.44 mGy-cm. Automated exposure control was utilized for the study. A dose lowering technique was utilized adhering to the principles of ALARA. MIP reconstructed images were created and reviewed. COMPARISON: No relevant prior studies available. FINDINGS: Pulmonary arteries: Unremarkable. No pulmonary embolism. Aorta: No acute findings. No thoracic aortic aneurysm. Lungs: Airspace consolidation in the right upper lobe, consistent with lobar pneumonia. Mild patchy opacity is also present in the right middle lobe and right lower lobe, to a lesser degree. Pleural space: Unremarkable. No significant effusion. No pneumothorax. Heart: Unremarkable. No cardiomegaly. No significant pericardial effusion. No evidence of RV dysfunction. Bones/joints: No acute fracture. No dislocation. Soft tissues: Unremarkable. Lymph nodes: Unremarkable. No enlarged lymph nodes. IMPRESSION: Airspace consolidation in the right upper lobe, consistent with lobar pneumonia. Electronically signed by: Marc Oakes MD 12/22/22 19:51 PM ECG Additional Comments: Sinus tachycardia Otherwise normal ECG No previous ECGs available Code Status & VTE Plan Code Status Full code VTE Prophylaxis Plan VTE Prophylaxis will be ordered: Yes Supervising Physician Co-Signing Physician Notes PA Supervision Note: Patient seen and examined with COBY Clinton with the following exceptions and/or additions: Subjective: 22-year-old male past medical history significant for nephrolithiasis presented for right-sided chest pain. Noted in the ER to be hypotensive and tachycardic, received 2 L of IV fluid with improvement in his blood pressures. Has had some emesis in the recent past, including a few times in the ER. Physical exam: Vitals reviewed Gen: Alert and oriented, ill appearing HEENT: anicteric sclerae, EOMI CV: Tachycardic, regular, no murmurs Pulm: Left lung clear to auscultation. Decreased breath sounds over right upper lung field, shallow breathing noted, hypoxia improved with advisement to take deep breaths Abd: abdomen soft, tender in epigastric area, Ext: no edema, 2+ DP pulses Skin: no rashes, warm/dry Neuro: No focal neurologic deficits Psych: alert and oriented Labs, Rads, and ECG reviewed: Chest x-ray with chest x-ray with right upper/middle lobe consolidation, CTA chest with right upper lobe consolidation consistent with lobar pneumonia. Lab work without notable leukocytosis, elevated D-dimer to 1140, lactate 2.5, T. bili 1.2. EKG notable for sinus tachy cardia, otherwise normal. Assessment and Plan: 22-year-old male admitted with acute hypoxic respiratory failure and severe sepsis 2/2 possible aspiration pneumonia vs. other infectious cause (somewhat odd presentation given RUL lobar consolidation). Also with hematemesis/hemoptysis suspected due to frequent vomiting since having alcohol last night, however with recent travel outside of the [place] and cough x2 months, some night sweats noted on history. Placed on nonrebreather, maintain oxygen saturations of greater than 92% and would avoid BIPAP if at all possible given aspiration, active emesis. Placed on Vanco/Zosyn by ER provider; will get MRSA swab, and continue empiric Abx. Respiratory Biofire and urine Legionella testing pending. Zofran scheduled for nausea/vomiting, and PPI as well. Monitoring of H/H, Hgb 14 on ER intake labwork. Discussed with ICU provider due to having BP in 80s systolic despite total of 4L resuscitative fluids, may need levo in the interim to maintain adequate MAP goals. Pulm to evaluate for other possible infectious causes of ongoing cough and night sweats. PG Care Time/CCT Total # of Minutes Spent Total Time Spent with Patient: Total time spent is greater than 50% in coordination of care (as documented) at patient's floor/unit and/or counseling patient: Coding Level of Care Code 47831 INT INP/OBS CARE 3/75MIN Medical Decision Making High Complexity Diagnoses Sepsis due to pneumonia J18.9; A41.9 Hematemesis K92.0 Acute respiratory failure with hypoxia J96.01 Aspiration into airway T17.168A
[2022-12-22] MEDS ORDERED: LACTATED RINGER'S 1,000 ML IV ONE ×2 (20:19→21:20)
[2022-12-22] MEDS ORDERED: FAMOTIDINE 20 MG in SYRINGE 3 ML IV STA (20:33)
[2022-12-22] MEDS ORDERED: MoRPHine SULFATE 2 MG/ML CARP IV PRN (20:37)
[2022-12-22] MEDS ORDERED: FAMOTIDINE 20MG/5ML IV PUSH IV ONE (20:45)
[2022-12-22] MEDS ORDERED: guaiFENesin SUGAR FREE 200 MG/10 ML UDC PO PRN (20:55)
[2022-12-22 21:00] LABS: HCO3 ABG 20 mmol/L (19-24); Oxygen Saturation ABG 92.1 % (90-95); PCO2 ABG 32 mmHg (35-46); PO2 ABG 59 mmHg (80-95)
[2022-12-22] MEDS ORDERED: STAT IV Infusion **Titration per Protocol STA ×2 (21:00→23:21)
[2022-12-22] MEDS: NOREPINEPHRINE/D5W 4 MG/250 ML PLCT IV SCH (21:05)
[2022-12-22] MEDS ORDERED: ACETAMINOPHEN 1,000 MG/100 ML VIAL IV PRN (21:24)
[2022-12-22] MEDS ORDERED: ACETAMINOPHEN 1000 MG/100 ML IV IV ONE (21:32)
[2022-12-22] MEDS: PANTOprazole 40 MG in DEXTROSE 5% 100 ML IV SCH (21:53)
[2022-12-22 22:01] LABS: Allen Test Pos (Pos)
[2022-12-22] MEDS ORDERED: PANTOprazole 40 MG in SYRINGE 0 ML IV ONE (22:42)
[2022-12-22] MEDS ORDERED: ACETAMINOPHEN 325 MG TAB PO PRN (22:42)
--- NOTE | 2022-12-22 23:00 | Critical Care Consultation ---
Date of Consultation December 22, 2022 Assessment & Plan (1) Septic shock: Reason Critically Ill: 22-year-old male with no significant past medical history presents to the ICU with acute hypoxic respiratory failure and septic shock from pneumonia. Now requiring BiPAP and vasopressor support Neuro - [facility] ICU: Negative Cardiac - Shocklikely secondary to sepsis given patient's pneumonia. See ID for treatment below - EKG unremarkable with sinus tachycardia, no prolonged QTc. Troponin within normal limits. Will obtain echo considering patient's hypotension - Random cortisol appropriately elevated at 52. No indication for steroids at this time - CTA negative for PE - Currently requiring vasopressor support with Levophed and vasopressin drips, CVC inserted. Titrate for maps greater than 65, wean as tolerated - Continuous monitoring on telemetry Respiratory - Acute hypoxic respiratory failure patient with severe hypoxia with FiO2 59 on nonrebreather. Now on BiPAP. Appears comfortable but low threshold for requiring intubation. - CTA negative for PE. Did show right upper lobe consolidation concerning for pneumonia. Suspect patient may have aspirated. - Viral panel negative, CRP mildly elevated at 3. Suspect this is more in line with bacterial pneumonia. - Hold on Lasix/diuresis given hypotension - f/u CXR and ABG in AM - Continuous monitoring pulse ox. Wean FiO2 as tolerated GI - Hematemesis Patient did have vomiting with small amount of blood-tinged emesis in the ED. H&H is stable however he was empirically started on Protonix drip. RENAL/LYTES - Creatinine stable at 1.1. No electrolyte abnormalities. Received 4 L crystalloid bolus in the ED. Continue with Plasma-Lyte at 125 mL/h monitor routine BMP and replete electrolytes as indicated - Strict I's and O's ENDO - No history of diabetes or thyroid disease. ICU hyperglycemic protocol HEME - H&H stable, monitor routine CBC ID - Sepsislikely pulmonary source given CT findings with consolidation in the right lobe. Suspect possible aspiration. - Patient does have history of travel outside the [place] to [facility] for which she states he has had a cough for the past 2 months? Possible intermittent fevers with night sweats? - Viral panel is negative and procalcitonin significantly elevated at 15, Picture more consistent with bacteremia. - COVID-19 negative, - nasal MRSA negative. Did receive 1 dose vancomycin in the ED now discontinued - Blood cultures and sputum culture pending - Continue with Zosyn LINES/IV ACCESS - Right internal jugular line CVC, peripheral IVs DVT PROPHYLAXIS - SCDs, Hold anticoagulation for now given hematemesis I have personally spent 85 minutes of critical care time in the direct management of this patient. This is a life/limb threatening event. This includes time spent evaluating patient, direct bedside care, chart review, placing orders, interpretation of diagnostic studies, discussion with consultants, patient, and family members, as well as other required patient management activities. This time is exclusive of all separately billable procedures, and teaching time and separate from and in addition to any other critical care service time. Thank you for allowing us to participate in the care of this patient. Please refer to my attending physician's documentation for any further recommendations. (2) Aspiration pneumonia: (3) Hematemesis: (4) Acute respiratory failure with hypoxia: Supervising Physician Co-Signing Physician Notes Discussed with critical care NICOLE overnight. Agree with assessment plan as noted. See my progress note from 12/27/2022 for additional details History of Present Illness Attending Physician: Jem Bullock MD History of Present Illness Patient is a 22-year-old male with past medical history of kidney stones from 2020, but otherwise healthy presented to the emergency department earlier today with complaints of right-sided chest pain and back pain and shortness of breath. Patient reported that he was out drinking last night and had multiple episodes of nausea and vomiting since. This morning he felt tired and was having right- sided chest pain and back pain. Patient reports that he has had a cough for the past 2 months since he went scuba diving and the [facility] in [place] and may have aspirated some ocean water. In the ED, patient was found to be hypotensive and hypoxic with sats 86% on room air. He had a elevated D-dimer and was taken for CTA chest which was negative for PE but did show consolidations in the right upper lobe consistent with pneumonia. Patient also had elevated lactate of 2.5 And procalcitonin of 15. Viral panel negative. Patient became increasingly hypoxic and was placed on high flow nasal cannula, and then transition to BiPAP. He received 4 L crystalloid bolus but remained hypotensive and required Levophed drip. He was started on broad-spectrum antibiotics and blood cultures and sputum's culture are pending. He did undergo CT abdomen and pelvis as well which showed mild wall thickening of small bowel correlating for mild anterior arthritis and liquid stool in the colon consistent with diarrheal disease. Upon examination the patient is without labored breathing and is alert and oriented. He currently denies headache, dizziness, syncope, congestion, palpitations, abdominal pain, leg pain or swelling in lower extremities, changes in gait. Patient does report a history of vaping which he states he quit 2 months ago. He reports night sweats but does not have a thermometer at home. Chest and back pain associated with breathing and shortness of breath started this morning. He did have an episode of vomiting in the emergency department with some blood-tinged emesis for which he was started on Protonix drip. Patient to remain in ICU for further management at this time. Allergies Allergy/AdvReac Type Severity Reaction Status Date / Time No Known Allergies Allergy Verified 12/22/22 20:27 Home Medications Medication Instructions Recorded Confirmed Type ibuprofen 200 mg tablet (Advil) 400 mg PO Q6H PRN Fever Or Pain 12/22/22 12/22/22 History Patient History Medical History ADHD GERD (gastroesophageal reflux disease) History of asthma Childhood History of COVID-19 Dx 08/2020 > no current issues Kidney stones Nephrolithiasis Surgical History H/O cystoscopy Cystoscopy, ureteroscopy, laser lithotripsy (06/25/21): LMA at [facility] History of esophagogastroduodenoscopy (EGD) History of hernia repair History of nasal cauterization Family History Grandfather (Maternal) Heart disease Myocardial infarction Cancer Grandfather (Paternal) Heart disease Myocardial infarction Father Kidney stones Other No family history of adverse response to anesthesia Social History (Updated 12/23/22 @ 01:00 by FRANKLIN Anderson) Smoking Status: Former smoker Tobacco Type: E-cigarettes / Vaping Second Hand Exposure: No; Do You Dip or Chew Tobacco: No; Hx Alcohol Use: Yes Alcohol type: beer Hx Substance Use: No Preferred Language: Amharic Communication Ability: Effective Plug Grower Required: No Beliefs That Will Affect Care: None marital status: Single Current Living Situation: Alone Current Living Situation Comment: APARTMENT>NO ROOMATES current occupational status: student Feels Safe at Home: Yes Safety Concerns: Feels Safe At This Time Assistive Devices: None Review of Systems Review of Systems: All systems reviewed & are unremarkable except as noted in HPI & below Physical Exam Constitutional: cooperative and comfortable; no acute distress and no altered mental status Eyes: PERRL, conjunctivae normal, anicteric sclerae ENMT: external ear and nose normal, oropharynx normal Neck: trachea midline, no thyromegaly Respiratory: Mild tachypnea, nonlabored breathing or use of accessory muscles. Lungs clear to auscultation bilaterally. Symmetrical chest wall movement. Cardiovascular: Rate/Rhythm: regular rate, regular rhythm and + tachycardic Heart Sounds: normal S1 and normal S2; no murmur Vessels: no JVD Extremities: no edema Gastrointestinal (Abdomen): normal bowel sounds, soft, nontender, no hepatosplenomegaly Musculoskeletal: no cyanosis or clubbing, extremities motor strength 5/5 Skin: no rashes, warm and dry Neurologic: PERRL, EOMI, accommodation nl, no face palsy, no dysarthria Psychiatric: A+Ox3, euthymic affect Results & Data Results & Data Vital Signs (Past 12 Hours) Vital Signs Temp Pulse Pulse Resp BP BP Pulse Ox 12/22/22 22:47 12/22/22 22:05 124 H 24 88 L 12/22/22 22:33 123 H 28 H 94 12/22/22 22:30 123 H 28 H 94 12/22/22 21:55 126 H 15 88/40 L 88 L 12/22/22 21:50 128 H 24 92/48 L 89 L 12/22/22 21:45 126 H 27 H 88/52 L 88 L 12/22/22 21:40 122 H 2 L 85/50 L 89 L 12/22/22 21:58 121 H 28 H 90 12/22/22 21:56 12/22/22 21:35 125 H 14 94/52 L 89 L 12/22/22 21:30 127 H 27 H 103/63 88 L 12/22/22 21:29 131 H 24 88 L 12/22/22 21:29 103/55 L 12/22/22 21:28 129 H 26 H 87 L 12/22/22 21:25 134 H 28 H 85/71 L 89 L 12/22/22 21:24 130 H 25 H 110/68 83 L 12/22/22 21:20 126 H 13 97/66 L 85 L 12/22/22 21:16 124 H 26 H 96/67 L 87 L 12/22/22 21:15 126 H 21 12/22/22 21:09 118 H 22 87/55 L 12/22/22 21:05 118 H 24 86/57 L 92 12/22/22 21:00 113 H 19 78/45 L 87 L 12/22/22 20:58 124 H 24 69/47 L 89 L 12/22/22 20:55 80/42 L 12/22/22 20:55 122 H 17 86 L 12/22/22 20:45 120 H 32 H 88/52 L 12/22/22 20:36 116 H 30 H 75/49 L 92 12/22/22 20:30 116 H 26 H 78/46 L 94 12/22/22 20:18 86/45 L 12/22/22 20:18 113 H 19 88 L 12/22/22 20:15 112 H 26 H 88/42 L 85 L 12/22/22 20:01 138 H 27 H 100/51 L 87 L 12/22/22 20:00 112 H 25 H 89 L 12/22/22 19:45 127 H 25 H 115/70 89 L 12/22/22 19:30 126 H 27 H 111/73 91 12/22/22 19:17 122 H 33 H 119/73 92 12/22/22 19:15 122 H 22 90 12/22/22 19:11 115/62 87 L 12/22/22 18:40 135 H 30 H 79/46 L 93 12/22/22 18:40 12/22/22 19:15 86 L 12/22/22 19:14 124 H 30 H 86 L 12/22/22 18:47 124 H 32 H 111/48 L 12/22/22 18:45 126 H 25 H 12/22/22 18:44 125 H 33 H 93 12/22/22 18:46 128 H 12/22/22 17:31 36.8 C 132 H 20 98 Pulse Ox O2 Del Method O2 Del Method O2 Flow Rate FiO2 12/22/22 22:47 96 BiPAP 12/22/22 22:05 100 12/22/22 22:33 100 04/06/23 22:30 BiPAP 100 12/22/22 21:55 Oxymask, High Flow Nasal Cannula 12/22/22 21:50 Oxymask, High Flow Nasal Cannula 12/22/22 21:45 Oxymask, High Flow Nasal Cannula 12/22/22 21:40 High Flow Nasal Cannula, Non-rebreather 12/22/22 21:58 Oxymask, High Flow Nasal Cannula 40 100 12/22/22 21:56 High Flow Nasal Cannula, Non-rebreather 12/22/22 21:35 High Flow Nasal Cannula, Non-rebreather 15 12/22/22 21:30 High Flow Nasal Cannula, Non-rebreather 15 12/22/22 21:29 High Flow Nasal Cannula, Non-rebreather 15 12/22/22 21:29 12/22/22 21:28 High Flow Nasal Cannula, Non-rebreather 15 12/22/22 21:25 High Flow Nasal Cannula, Non-rebreather 15 12/22/22 21:24 Non-rebreather 15 12/22/22 21:20 Non-rebreather 15 12/22/22 21:16 Non-rebreather 15 12/22/22 21:15 12/22/22 21:09 12/22/22 21:05 Non-rebreather 15 12/22/22 21:00 Oxymask 15 12/22/22 20:58 Oxymask 15 12/22/22 20:55 12/22/22 20:55 Oxymask 10 12/22/22 20:45 12/22/22 20:36 Oxymask 10 12/22/22 20:30 Oxymask 10 12/22/22 20:18 12/22/22 20:18 Nasal Cannula 6 12/22/22 20:15 Nasal Cannula 4 12/22/22 20:01 Nasal Cannula 4 12/22/22 20:00 Nasal Cannula 4 12/22/22 19:45 Nasal Cannula 4 12/22/22 19:30 Nasal Cannula 4 12/22/22 19:17 Nasal Cannula 4 12/22/22 19:15 Nasal Cannula 4 12/22/22 19:11 Nasal Cannula 4 12/22/22 18:40 Room Air 12/22/22 18:40 Room Air 12/22/22 19:15 Room Air 12/22/22 19:14 Room Air 12/22/22 18:47 12/22/22 18:45 12/22/22 18:44 Room Air 12/22/22 18:46 12/22/22 17:31 Room Air Diagnostic Findings EXAM: CT Angiography Chest With Intravenous Contrast CLINICAL HISTORY: Reason for exam: ro pe. TECHNIQUE: Axial computed tomographic angiography images of the chest with intravenous contrast. CTDI is 40.88 mGy and DLP is 767.44 mGy-cm. Automated exposure control was utilized for the study. A dose lowering technique was utilized adhering to the principles of ALARA. MIP reconstructed images were created and reviewed. COMPARISON: No relevant prior studies available. FINDINGS: Pulmonary arteries: Unremarkable. No pulmonary embolism. Aorta: No acute findings. No thoracic aortic aneurysm. Lungs: Airspace consolidation in the right upper lobe, consistent with lobar pneumonia. Mild patchy opacity is also present in the right middle lobe and right lower lobe, to a lesser degree. Pleural space: Unremarkable. No significant effusion. No pneumothorax. Heart: Unremarkable. No cardiomegaly. No significant pericardial effusion. No evidence of RV dysfunction. Bones/joints: No acute fracture. No dislocation. Soft tissues: Unremarkable. Lymph nodes: Unremarkable. No enlarged lymph nodes. IMPRESSION: Airspace consolidation in the right upper lobe, consistent with lobar pneumonia. Electronically signed by: Marc Oakes MD 12/22/22 19:51 PM Exam(s): CT ABDOMEN + PELVIS With Contrast IV Amt: 114 ml optiray EXAM: CT Abdomen and Pelvis With Intravenous Contrast CLINICAL HISTORY: Reason for exam: vomitting. TECHNIQUE: Axial computed tomography images of the abdomen and pelvis with intravenous contrast. CTDI is 40.88 mGy and DLP is 767.44 mGy-cm. Automated exposure control was utilized for the study. A dose lowering technique was utilized adhering to the principles of ALARA. CONTRAST: Patient received 114 ml optiray of IV contrast COMPARISON: No relevant prior studies available. FINDINGS: Lung bases: Unremarkable. No mass. No consolidation. ABDOMEN: Liver: Unremarkable. No mass. Gallbladder and bile ducts: Unremarkable. No calcified stones. No ductal dilation. Pancreas: Unremarkable. No mass. No ductal dilation. Spleen: Unremarkable. No splenomegaly. Adrenals: Unremarkable. No mass. Kidneys and ureters: Mild fullness of the left renal collecting system. No delayed nephrogram. Stomach and bowel: Mild wall thickening of small bowel, correlate for mild enteritis. Liquid stool in the colon, consistent with diarrheal disease. No obstruction. PELVIS: Appendix: No findings to suggest acute appendicitis. Bladder: Unremarkable. No mass. Reproductive: Unremarkable as visualized. ABDOMEN and PELVIS: Intraperitoneal space: Unremarkable. No free air. No significant fluid collection. Bones/joints: No acute fracture. No dislocation. Soft tissues: Unremarkable. Vasculature: Unremarkable. No abdominal aortic aneurysm. Lymph nodes: Unremarkable. No enlarged lymph nodes. IMPRESSION: 1. Mild wall thickening of small bowel, correlate for mild enteritis. 2. Liquid stool in the colon, consistent with diarrheal disease. Electronically signed by: Marc Oakes MD 12/22/22 19:52 PM Coding Level of Care Code 27213 CRITICAL CARE EA ADD 30M Diagnoses Septic shock A41.9; R65.21 Aspiration pneumonia J69.0 Aspiration pneumonia type: unspecified Laterality: right Lung location: unspecified part of lung Hematemesis K92.0 Acute respiratory failure with hypoxia J96.01 (2) Aspiration pneumonia Aspiration pneumonia type: unspecified Laterality: right Lung location: un specified part of lung Qualified Code(s): J69.0 - Pneumonitis due to inhalation of food and vomit
[2022-12-22] MEDS: PIPERACILLIN/TAZOBACTAM 4.5 GM in DEXTROSE 5% 100 ML IV SCH (23:09)
[2022-12-22] MEDS: VASOPRESSIN 20 UNITS in 0.9 % SODIUM CHLORIDE 100 ML IV SCH (23:47)
[2022-12-22] MEDS: PLASMA-LYTE A 1,000 ML IV SCH (23:47)
[2022-12-22 23:54] LABS: Adenovirus PCR Not Detected (NotDetected); Bordetella parapertussis PCR Not Detected (NotDetected); Bordetella pertussis PCR Not Detected (NotDetected); Chlamydia pneumoniae PCR Not Detected (NotDetected); Coronavirus 229E PCR Not Detected (NotDetected); Coronavirus CoV-2 (COVID19)PCR Not Detected (NotDetected); Coronavirus HKU1 PCR Not Detected (NotDetected); Coronavirus NL63 PCR Not Detected (NotDetected); Coronavirus OC43PCR Not Detected (NotDetected); Human Metapneumovirus PCR Not Detected (NotDetected); Influenza A PCR Not Detected (NotDetected); Influenza B PCR Not Detected (NotDetected); Mycoplasma pneumoniae PCR Not Detected (NotDetected); Parainfluenza Virus 1 PCR Not Detected (NotDetected); Parainfluenza Virus 2 PCR Not Detected (NotDetected); Parainfluenza Virus 3 PCR Not Detected (NotDetected); Parainfluenza Virus 4 PCR Not Detected (NotDetected); Respiratory Syncytial VirusPCR Not Detected (NotDetected); Rhinovirus/Enterovirus PCR Not Detected (NotDetected)
--- NOTE | 2022-12-23 00:03 | Procedure Note ---
Procedure Note Date of Service December 22, 2022 Note INTERNAL JUGULAR CENTRAL LINE PROCEDURE NOTE: Procedure: Internal Jugular Central Line Placement Attending: Dr. Amaury Feliz Provider: FRANKLIN Dong Indication: Central Drug Administration. Anesthesia: Lidocaine 1% Consent was signed and placed on the chart prior to procedure. Indication, risks, and benefits were explained at length. A time-out was completed verifying correct patient, procedure, site, positioning, and implants(s) or special equipment if applicable. Patients right Neck was cleansed and draped in the typical sterile fashion using Chloraprep. The Internal Jugular Vein and Carotid Artery were identified using ultrasound. The superficial tissue was anesthetized using 3 mL of 1% lidocaine without epinephrine under direct visualization with the ultrasound. After adequate anesthetization was achieved, the Internal Jugular vein was cannulated under direct ultrasound guidance using an introducer needle on a syringe. Good venous blood return was maintained prior to removal of syringe from introducer needle. Using Seldinger Technique, a guide wire was advanced through the introducer needle without resistance. The introducer needle was removed and ultrasound images were obtained of the guide wire within the Internal Jugular Vein and saved to the patients medical record. A small incision was made in penetrating fashion at the guide wire insertion site utilizing an 11 blade scalpel. The dilator was advanced to the vessel without resistance. The dilator was exchanged for the triple lumen catheter which was advanced into the vessel without resistance. The guide wire was removed intact from the catheter without issue. Claves were placed on each catheter tip with confirmation of good blood flow from each lumen. Each port was easily flushed with sterile saline. The catheter was placed at 16 cm and sut[address] in place. BioPatch was applied to the catheter and a sterile Tegaderm dressing was applied over the catheter with careful attention to sterility. Patient tolerated procedure well. No immediate complications were met. Post procedure x-ray was completed, placement was appropriate and no pneumothorax was noted. Images obtained are saved for permanent record Procedural Ultrasound Guidance: Procedure Date: 12/23/2022 Indication: CVC insertion Attending: Dr. Amaury Feliz Provider: FRANKLIN Dong Artery AND Vein visualized: Yes Compressible Vein: Yes Guidewire or Short Catheter seen in vein prior to dilation: Yes Line confirmed in Vein with ultrasound: Yes Images obtained are saved for permanent record. Coding CPT Codes Tubes, Drains, and Vasc Access - Tubes, Drains, and Vasc Access: [id number] Place catheter in vein superior or inferior vena cava ([id number]) Tubes, Drains, and Vasc Access - Tubes, Drains, and Vasc Access: [id number] Ultrasound Guidance For Vascular ([id number]) [facility] [place] Procedure Codes (Charges) Tubes, Drains, and Vasc Access Procedure 1: Tubes, Drains, and Vasc Access: [id number] Place catheter in vein superior or inferior vena cava Procedure 2: Tubes, Drains, and Vasc Access: [id number] Ultrasound Guidance For Vascular
[2022-12-23] MEDS ORDERED: fentaNYL citrate PF 100 MCG/2 ML VIAL IV PRN (00:05)
[2022-12-23 00:38] LABS: Hematocrit (blood only) 31.8 % (42.0-52.0); Mean Corpuscular Hgb Conc 34.6 g/dL (32.0-36.0); Mean Corpuscular Volume 86.6 fL (80.0-100.0); Platelet Count 154 K/uL (130-400); RDW Coefficient of Variation 12.9 % (11.5-14.5); RDW Standard Deviation 40.5 fL (36.4-46.3); Red Blood Count 3.67 M/uL (4.70-6.10); White Blood Count 4.86 K/ul (4.8-10.8)
[2022-12-23 00:52] LABS: Polychromasia 1+
[2022-12-23 00:53] LABS: ALC (manual) 0.05 K/uL (1.2-3.4); ANC (manual) 4.52 K/uL (1.4-6.5); Eosinophils # (manual) 0.05 K/uL (0-0.50); Eosinophils % (manual) 1 %; Lymphocytes # (manual) 0.05 K/uL (1.2-3.4); Lymphocytes % (manual) 1 %; Metamyelocytes # (manual) 0.19 K/uL (0-0); Metamyelocytes % (manual) 4 %; Neutrophils # (manual) 4.52 K/uL (1.40-6.50); Neutrophils % (manual) 93 %
[2022-12-23 01:12] LABS: BUN Creatinine Ratio 18.5 (10-20); Creatinine Clr Calc Pharmacy 98.1 ml/min; Est GFR (African American) 89.8 ml/min; Est GFR (Non-African American) 77.5 ml/min; Potassium 3.9 mmol/L (3.5-5.1)
[2022-12-23] MEDS: PANTOprazole 40 MG in DEXTROSE 5% 100 ML IV SCH ×2 (01:54→06:06)
[2022-12-23 02:16] LABS: Appearance Urine Clear (Clear); Bacteria Urine Automated Negative (Negative); Bilirubin Urine Negative (Negative); Blood Urine Negative (Negative); Cast Urine Automated 0 /lpf (0-5); Color Urine Yellow; Glucose Urine UA Negative (Negative); Ketones Urine Trace (Negative); Leukocyte Esterase Urine Negative (Negative); Nitrite Urine Negative (Negative); Protein Urine Trace (Negative); RBC Urine Automated 0-4 /hpf (0-4); Specific Gravity Urine > 1.045 (1.000-1.030); Urobilinogen Urine Negative (Negative); pH Urine 5.5 (4.5-7.5)
[2022-12-23 02:39] LABS: Amphetamines+Metham, Urine Neg (Neg); Barbiturates, Urine Neg (Neg); Benzodiazepine, Urine Neg (Neg); Cocaine, Urine Neg (Neg); MDMA (Ecstacy), Urine Neg (Neg); Methadone, Urine Neg (Neg); Opiate, Urine Pos (Neg); Phencyclidine, Urine Neg (Neg)
[2022-12-23] MEDS: NOREPINEPHRINE/D5W 4 MG/250 ML PLCT IV SCH ×6 (02:53→21:01)
[2022-12-23] MEDS: ONDANSETRON INJ 2 MG/ML 2 ML VIAL IV PRN ×2 (03:36→06:19)
[2022-12-23 03:39] LABS: iSTAT Allen Test Pass; iSTAT Art Bld Gas pCO2 Correct 32 mmHg (35-46); iSTAT Art Bld Gas pH Corrected 7.398 (7.35-7.45); iSTAT Arterial Blood Gas HCO3 20 meg/L (19-24); iSTAT Arterial Blood Gas pCO2 32 mmHg (35-46); iSTAT Arterial Blood Gas pO2 79 mmHg (80-95); iSTAT Arterial Blood Gas pO2 C 78; iSTAT Carbon Dioxide 21 mmol/L (24-31); iSTAT FiO2 70 %; iSTAT Hematocrit 31 % (42-52); iSTAT Hemoglobin 10.5 g/dl (14.0-18.0); iSTAT Site L Radial; iSTAT Sodium 135 mmol/L (135-144)
[2022-12-23 04:56] LABS: Hematocrit (blood only) 33.1 % (42.0-52.0); Hemoglobin 11.3 g/dl (14.0-18.0); Mean Corpuscular Hemoglobin 29.8 pg (25.0-34.0); Mean Corpuscular Hgb Conc 34.1 g/dL (32.0-36.0); Mean Corpuscular Volume 87.3 fL (80.0-100.0); Mean Platelet Volume 10.1 fL (9.4-12.4); Platelet Count 165 K/uL (130-400); RDW Standard Deviation 41.3 fL (36.4-46.3); Red Blood Count 3.79 M/uL (4.70-6.10); White Blood Count 8.45 K/ul (4.8-10.8)
[2022-12-23 05:02] LABS: ALC (manual) 0.08 K/uL (1.2-3.4); ANC (manual) 7.86 K/uL (1.4-6.5); Lymphocytes # (manual) 0.08 K/uL (1.2-3.4); Lymphocytes % (manual) 1 %; Metamyelocytes # (manual) 0.51 K/uL (0-0); Metamyelocytes % (manual) 6 %; Monocytes # (manual) 0.08 K/uL (0.11-0.59); Monocytes % (manual) 1 %; Neutrophils # (manual) 7.86 K/uL (1.40-6.50); Neutrophils % (manual) 93 %; Toxic Granulation 1+
[2022-12-23 05:15] LABS: Albumin Globulin Ratio 1.9 (0.9-2); Albumin Level 3.1 gm/dl (3.4-5.0); BUN Creatinine Ratio 18.8 (10-20); Bilirubin,Total 0.8 mg/dl (0.2-1.0); Calcium 7.2 mg/dl (8.6-10.3); Creatinine Clr Calc Pharmacy 88.6 ml/min; Est GFR (African American) 79.3 ml/min; Est GFR (Non-African American) 68.4 ml/min; Globulin 1.6 gm/dl (2.5-4.0); Magnesium 1.1 mg/dl (1.7-2.4); Potassium 4.1 mmol/L (3.5-5.1); Total Protein 4.7 gm/dl (6.0-8.3)
[2022-12-23] MEDS ORDERED: GLUCOSE 10 TAB/TUBE PO PRN (05:31)
[2022-12-23] MEDS ORDERED: GLUCOSE 40% GEL 15 GM TUBE PO PRN (05:31)
[2022-12-23] MEDS ORDERED: DEXTROSE 50% 50 ML SYRINGE IV PRN (05:31)
[2022-12-23] MEDS ORDERED: CARBOHYDRATES FOR HYPOGLYCEMIA PO PRN (05:31)
[2022-12-23] MEDS ORDERED: GLUCAGON FOR INJ 1 MG VIAL SQ PRN (05:31)
[2022-12-23] MEDS: INSULIN ASPART PER UNIT CHARGE SC SCH ×4 (05:39→23:24)
[2022-12-23] MEDS: VASOPRESSIN 20 UNITS in 0.9 % SODIUM CHLORIDE 100 ML IV SCH ×3 (06:09→22:35)
[2022-12-23] MEDS ORDERED: STAT IV STA (06:18)
[2022-12-23] MEDS ORDERED: ONDANSETRON INJ 2 MG/ML 2 ML VIAL IV STA (06:19)
[2022-12-23] MEDS: MAGNESIUM SULFATE / D5W 1 GM/100 ML BAG IV SCH ×4 (06:29→11:50)
[2022-12-23] MEDS: PLASMA-LYTE A 1,000 ML IV SCH (06:40)
[2022-12-23] MEDS ORDERED: CALCIUM GLUCONATE 10% 1,000 MG in DEXTROSE 5% 50 ML IV ONE (06:45)
[2022-12-23 07:12] LABS: A calco-baum cmplx NotReported Not Detected (NotDetected); Bact fragilis Not Reported Not Detected (NotDetected); C auris Not Reported Not Detected (NotDetected); Calbicans Not Reported Not Detected (NotDetected); Candida glabrata Not Reported Not Detected (NotDetected); Candida krusei Not Reported Not Detected (NotDetected); Cneoformans/gatti Not Reported Not Detected (NotDetected); Cparapsilosis Not Reported Not Detected (NotDetected); Ctropicalis Not Reported Not Detected (NotDetected); E cloacae compx Not Reported Not Detected (NotDetected); Efaecalis Not Reported Not Detected (NotDetected); Efaecium Not Reported Not Detected (NotDetected); Enterobacterales Not Reported Not Detected (NotDetected); Escherichia coli Not Reported Not Detected (NotDetected); H influenzae Not Reported Not Detected (NotDetected); K aerogenes Not Reported Not Detected (NotDetected); Koxytoca Not Reported Not Detected (NotDetected); Kpneumoniae grp Not Reported Not Detected (NotDetected); Lmonocyt Not Reported Not Detected (NotDetected); N meningitidis Not Reported Not Detected (NotDetected); P aeruginosa Not Reported Not Detected (NotDetected); Proteus spp Not Reported Not Detected (NotDetected); Salmonella spp Not Reported Not Detected (NotDetected); Smarcescens Not Reported Not Detected (NotDetected); Staph lugdunensis Not Reported Not Detected (NotDetected); Staph spp. Not Reported Not Detected (NotDetected); Staphaureus Not Reported Not Detected (NotDetected); Staphepi Not Reported Not Detected (NotDetected); Stenmaltophilia Not Reported Not Detected (NotDetected); Strep agal(GrpB) Not Reported Not Detected (NotDetected); Strep pneum Not Reported Not Detected (NotDetected); Strep pyog (GrpA) Not Reported DETECTED (NotDetected); Strep spp Not Reported DETECTED (NotDetected); Streptococcus spp DETECTED (NotDetected)
--- NOTE | 2022-12-23 07:19 | XRay Report ---
XR chest 1V portable HISTORY: CVC insertion COMPARISON: Chest 12/22/2022. FINDINGS: A right jugular central venous catheter terminates in the expected location of the SVC. No pneumothorax. The heart is normal in size. Progressive right lung airspace opacities and a trace righ t pleural effusion. There are patchy left basilar airspace opacities also noted. Findings are consist ent with a multifocal pneumonia. IMPRESSION: 1. Right jugular central venous catheter terminates at the SVC. No pneumothorax. 2. Progressive multifocal pneumonia. ACT 112: Negative or not required by law. Electronically signed by: Emanuel Cassidy M.D. 12/23/2022 7:17 AM
--- NOTE | 2022-12-23 07:20 | XRay Report ---
XR chest 1V portable HISTORY: Resp failure COMPARISON: Chest 12/22/2022. FINDINGS: The right jugular central venous catheter terminates at the SVC. No pneumothorax. Trace rig ht pleural effusion persists. The heart is normal in size. Multifocal bilateral airspace opacities ar e again noted. These are similar to the prior study. No evidence for pulmonary edema. IMPRESSION: Redemonstration of the multifocal airspace opacities consistent with a pneumonia. ACT 112: Negative or not required by law. Electronically signed by: Emanuel Cassidy M.D. 12/23/2022 7:18 AM
[2022-12-23 07:23] LABS: Streptococcus pyogenes (GrpA) DETECTED (NotDetected)
[2022-12-23] MEDS ORDERED: ICU Protocol for HYPERglycemia SCH (07:30)
[2022-12-23] MEDS: ALBUT/IPRATROP 3MG/0.5MG NEB 3 ML VIAL NEB SCH ×4 (07:41→20:02)
[2022-12-23] MEDS: PIPERACILLIN/TAZOBACTAM 4.5 GM in DEXTROSE 5% 100 ML IV SCH (07:53)
--- NOTE | 2022-12-23 08:03 | Hospitalist Progress Note ---
Date of Service December 23, 2022 Assessment & Plan (1) Acute respiratory failure with hypoxia: Plan: 22yo male with a history of nephrolithiasis (s/p laser extraction, 2020) presents with acute hypoxic respiratory failure and septic shock secondary to pneumonia. Patient is currently in the ICU and is sedated, intubated, and on two pressors. 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 Continue current pressors and IVF Septic shock sec to multilobar pneumonia -Possibly aspiration pneumonia -Pressor support Zosyn deescalated to rocephin; continue doxycycline; -follow cultures Hematemesis Protonix IV BID LSIA -sec to sepsis -rise from 1.12 baseline to 1.44 -pressor support -monitor renal function Hypoproteinemia -T protein drop from 7 to 4.7 including drop in globulin. -possibly marker for ARDS. monitor. FEN: NPO; Code status: full code DVT ppx: heparin sq Consults: light bulb replacer, cardiology Case management: following Dispo: ICU (2) Aspiration pneumonia: (3) Cardiomyopathy: (4) Septic shock: Admission and Anticipated Discharge Date Admission Date: December 22, 2022 Supervising Physician Co-Signing Physician Notes Resident Physician Supervision Note: I independently interviewed and examined the patient and verified the sheth history and physical, reviewed labs and image studies and agree with resident findings and care plan. Subjective Patient seen and evaluated at bedside this morning. Patient had just been sedated and intubated and is consequently unable to participate in ROS. Review of Systems Review of Systems: Unobtainable due to endotracheal tube Physical Exam Physical Exam: Constitutional: laying in ICU bed, sedated and intubated HEENT: ET tube in place CV: tachycardic, rhythm regular, no murmur appreciated Resp: equal chest rise, crackles appreciated Neuro: sedated Results & Data Results & Data Vital Signs (Past 12 Hours) Vital Signs Temp Pulse Pulse Resp BP Pulse Ox Pulse Ox 12/23/22 07:46 111 H 29 H 90 12/23/22 07:26 110 H 28 H 91 12/23/22 06:30 112 H 26 H 104/64 96 12/23/22 06:00 105 H 21 90/57 L 92 12/23/22 05:30 112 H 22 82/60 L 93 12/23/22 05:01 113 H 26 H 91/64 L 92 12/23/22 04:30 112 H 20 83/55 L 92 12/23/22 03:38 122 H 24 94 12/23/22 04:00 36.7 C 115 H 22 109/62 93 12/23/22 03:30 108 H 19 102/64 94 12/23/22 03:00 109 H 23 102/69 94 12/23/22 02:30 107 H 23 97/63 L 93 12/23/22 02:00 105 H 17 99/62 L 92 12/23/22 01:30 106 H 19 94/56 L 94 12/23/22 01:15 105 H 17 88/60 L 94 12/23/22 01:00 111 H 19 95/60 L 93 12/23/22 00:45 105 H 25 H 90/45 L 96 12/23/22 00:30 104 H 23 88/61 L 93 12/23/22 00:15 107 H 24 80/50 L 95 12/23/22 00:00 37 C 109 H 16 79/49 L 95 12/22/22 23:30 113 H 24 88/45 L 94 12/22/22 23:16 116 H 19 73/48 L 94 12/22/22 23:12 118 H 22 74/49 L 97 12/22/22 23:00 115 H 20 72/43 L 97 12/22/22 22:57 114 H 26 H 73/41 L 94 12/22/22 22:53 117 H 24 69/39 L 94 12/22/22 22:30 125 H 24 73/44 L 94 12/22/22 22:28 37 C 126 H 22 86/42 L 92 12/23/22 00:42 12/22/22 23:25 118 H 23 94 12/22/22 22:47 96 12/22/22 22:05 124 H 24 88 L 12/22/22 22:33 123 H 28 H 94 12/22/22 22:30 123 H 28 H 94 12/22/22 21:55 126 H 15 88/40 L 88 L 12/22/22 21:50 128 H 24 92/48 L 89 L 12/22/22 21:45 126 H 27 H 88/52 L 88 L 12/22/22 21:40 122 H 2 L 85/50 L 89 L 12/22/22 21:58 121 H 28 H 90 12/22/22 21:56 12/22/22 21:35 125 H 14 94/52 L 89 L 12/22/22 21:30 127 H 27 H 103/63 88 L 12/22/22 21:29 131 H 24 88 L 12/22/22 21:29 103/55 L 12/22/22 21:28 129 H 26 H 87 L 12/22/22 21:25 134 H 28 H 85/71 L 89 L 12/22/22 21:24 130 H 25 H 110/68 83 L 12/22/22 21:20 126 H 13 97/66 L 85 L 12/22/22 21:16 124 H 26 H 96/67 L 87 L 12/22/22 21:15 126 H 21 12/22/22 21:09 118 H 22 87/55 L 12/22/22 21:05 118 H 24 86/57 L 92 12/22/22 21:00 113 H 19 78/45 L 87 L 12/22/22 20:58 124 H 24 69/47 L 89 L 12/22/22 20:55 80/42 L 12/22/22 20:55 122 H 17 86 L 12/22/22 20:45 120 H 32 H 88/52 L 12/22/22 20:36 116 H 30 H 75/49 L 92 12/22/22 20:30 116 H 26 H 78/46 L 94 12/22/22 20:18 86/45 L 12/22/22 20:18 113 H 19 88 L 12/22/22 20:15 112 H 26 H 88/42 L 85 L O2 Del Method O2 Del Method O2 Flow Rate FiO2 12/23/22 07:46 High Flow Nasal Cannula 40 65 12/23/22 07:26 High Flow Nasal Cannula 40 60 12/23/22 06:30 BiPAP 70 12/23/22 06:00 BiPAP 70 12/23/22 05:30 BiPAP 60 12/23/22 05:01 BiPAP 60 12/23/22 04:30 BiPAP 60 12/23/22 03:38 60 12/23/22 04:00 BiPAP 60 12/23/22 03:30 BiPAP 60 12/23/22 03:00 BiPAP 70 12/23/22 02:30 BiPAP 70 12/23/22 02:00 BiPAP 70 12/23/22 01:30 BiPAP 70 12/23/22 01:15 BiPAP 70 12/23/22 01:00 BiPAP 70 12/23/22 00:45 BiPAP 80 12/23/22 00:30 BiPAP 80 12/23/22 00:15 BiPAP 80 12/23/22 00:00 BiPAP 80 12/22/22 23:30 BiPAP 80 12/22/22 23:16 BiPAP 90 12/22/22 23:12 BiPAP 90 12/22/22 23:00 BiPAP 90 12/22/22 22:57 BiPAP 90 12/22/22 22:53 BiPAP 90 12/22/22 22:30 BiPAP 100 12/22/22 22:28 BiPAP 100 12/23/22 00:42 BiPAP 80 12/22/22 23:25 90 12/22/22 22:47 BiPAP 12/22/22 22:05 100 12/22/22 22:33 100 12/22/22 22:30 BiPAP 100 12/22/22 21:55 Oxymask, High Flow Nasal Cannula 12/22/22 21:50 Oxymask, High Flow Nasal Cannula 12/22/22 21:45 Oxymask, High Flow Nasal Cannula 12/22/22 21:40 High Flow Nasal Cannula, Non-rebreather 12/22/22 21:58 Oxymask, High Flow Nasal Cannula 40 100 12/22/22 21:56 High Flow Nasal Cannula, Non-rebreather 12/22/22 21:35 High Flow Nasal Cannula, Non-rebreather 15 12/22/22 21:30 High Flow Nasal Cannula, Non-rebreather 15 12/22/22 21:29 High Flow Nasal Cannula, Non-rebreather 15 12/22/22 21:29 12/22/22 21:28 High Flow Nasal Cannula, Non-rebreather 15 12/22/22 21:25 High Flow Nasal Cannula, Non-rebreather 15 12/22/22 21:24 Non-rebreather 15 12/22/22 21:20 Non-rebreather 15 12/22/22 21:16 Non-rebreather 15 12/22/22 21:15 12/22/22 21:09 12/22/22 21:05 Non-rebreather 15 12/22/22 21:00 Oxymask 15 12/22/22 20:58 Oxymask 15 12/22/22 20:55 12/22/22 20:55 Oxymask 10 12/22/22 20:45 12/22/22 20:36 Oxymask 10 12/22/22 20:30 Oxymask 10 12/22/22 20:18 12/22/22 20:18 Nasal Cannula 6 12/22/22 20:15 Nasal Cannula 4 Resident Activity Tracking Resident Involvement: Resident Care Provided Care Provided: Adult Hospital Medicine (2) Aspiration pneumonia Aspiration pneumonia type: unspecified Laterality: right Lung location: unspecified part of lung Qualified Code(s): J69.0 - Pneumonitis due to inhalation of food and vomit
--- NOTE | 2022-12-23 08:22 | Electrocardiogram Report ---
Test Reason : Blood Pressure : / mmHG Vent. Rate : 117 BPM Atrial Rate : 117 BPM P-R Int : 142 ms QRS Dur : 102 ms QT Int : 304 ms P-R-T Axes : 076 011 038 degrees QTc Int : 424 ms Sinus tachycardia Incomplete right bundle branch block Otherwise normal ECG No previous ECGs available Confirmed by Graham Newton ([id number]) on 12/23/2022 8:22:27 AM Referred By: REFERRED SELF Confirmed By:Graham Newton
--- NOTE | 2022-12-23 08:31 | Critical Care Progress Note ---
Date of Service December 23, 2022 Assessment & Plan (1) Septic shock: (2) Hematemesis: (3) Acute respiratory failure with hypoxia: (4) Bacteremia due to Gram-positive bacteria: (5) Renal failure, acute: (6) Anemia: (7) Lactic acid acidosis: Plan Impression: 22-year-old male with no significant past medical history presents to the ICU with acute hypoxic respiratory failure and septic shock from pneumonia. Now requiring BiPAP and vasopressor support 24 Hour events: Patient presented to the emergency room in severe sepsis with septic shock due to pneumonia. He received adequate IV fluid resuscitation. Pressors were initiated. He received broad-spectrum antibiotics. Blood cultures now positive for gram-positive cocci in chains. He remains on 2 vasopressor agents with acceptable hemodynamics currently but remains tachycardic and in mild respiratory distress. Recommendations: Neuro -continue pain management strategy. Cardiac -severe sepsis with septic shock secondary to gram-positive cocci bacteremia from a lung source. Continue norepinephrine and vasopressin. Assessed IVC on cardiac ultrasound today and it appears to be dilated without any significant respiratory collapse suggesting adequate intravascular filling pressures. If we progress to intubation mechanical ventilation, consideration for use of noninvasive cardiac output monitor ([place]) for further assessment of intravascular status. Await follow-up echocardiogram. Increased lactate level this morning is concerning and will be trended. Given the high pressor needs, will likely place arterial line for closer hemodynamic monitoring. Respiratory -severe hypoxemic respiratory failure. The patient did require BiPAP for period of time last night and is now on max dose heated high flow oxygen therapy. Advised the patient that we may need to pursue intubation mechanical ventilation to allow his lungs time to heal. He would like to hold off for now but would have a low threshold for proceeding with intubation mechanical ventilation. GI - Hematemesis Patient did have vomiting with small amount of blood-tinged emesis in the ED. not concerned for clinically significant GI bleed. Continue IV Protonix twice daily and trend hemoglobin and hematocrit at this point time. Too unstable to consider any additional intervention RENAL/LYTES -acute renal failure this morning. Likely secondary to sepsis, pressors, and potential inadequate blood delivery to the kidneys. Continue to trend urine output, acid-base status, and serum electrolytes. -advised patient that we need to track his intake and output on a close basis. He would like to avoid Charles catheter for now but if we proceed to mechanical innovation, this may be necessary. ENDO - glycemic control per protocol. Random cortisol was appropriately elev ated. HEME -mild decrease in hemoglobin this morning. Continue to follow. No indication for transfusion currently. ID -Gram-positive cocci bacteremia, suspect pneumococcus. We will repeat blood cultures in 24 hours to ensure clearance. Okay to de-escalate antibiotics from Zosyn to Rocephin 2 g IV every 24 and follow clinical response as well as procalcitonin. LINES/IV ACCESS - Right internal jugular line CVC, peripheral IVs DVT PROPHYLAXIS - Subcu heparin I have personally spent 50 minutes of critical care time in the direct management of this patient. This is a life/limb threatening event. This includes time spent evaluating patient, direct bedside care, chart review, placing orders, interpretation of diagnostic studies, discussion with consultants, patient, and family members, as well as other required patient management activities. This time is exclusive of all separately billable procedures, and teaching time and separate from and in addition to any other critical care service time. Admission and Anticipated Discharge Date Admission Date: December 22, 2022 Subjective Patient seen and examined. EMR reviewed. Discussed on multidisciplinary rounds and with bedside critical care nurse. The patient complains of fatigue. He remains tachypneic but states he is not experiencing any increasing work of breathing. His cough is nonproductive. He is having some pleuritic pain in the chest with coughing and deep breathing. He is intermittently experiencing nausea. No abdominal pain. No skin rashes or lesions. Review of Systems Review of Systems: All systems reviewed & are unremarkable except as noted in Subjective Physical Exam Constitutional: well developed, well nourished, + ill appearing and + in distress Neck: trachea midline, no thyromegaly Respiratory: + labored breathing and + tachypneic Auscultation: + crackles and + bronchovesicular breath sounds Cardiovascular: Rate/Rhythm: regular rhythm and + tachycardic Gastrointestinal (Abdomen): normal bowel sounds, soft, nontender, no hepatosplenomegaly Musculoskeletal: Extremities: extremities normal to inspection Skin: no rashes, warm and dry Neurologic: Nonfocal exam Lymphatic: no cervical lymphadenopathy Results & Data Results & Data Vital Signs (Past 12 Hours) Vital Signs Temp Pulse Pulse Resp BP Pulse Ox Pulse Ox 12/23/22 07:46 111 H 29 H 90 12/23/22 07:26 110 H 28 H 91 12/23/22 06:30 112 H 26 H 104/64 96 12/23/22 06:00 105 H 21 90/57 L 92 12/23/22 05:30 112 H 22 82/60 L 93 12/23/22 05:01 113 H 26 H 91/64 L 92 12/23/22 04:30 112 H 20 83/55 L 92 12/23/22 03:38 122 H 24 94 12/23/22 04:00 36.7 C 115 H 22 109/62 93 12/23/22 03:30 108 H 19 102/64 94 12/23/22 03:00 109 H 23 102/69 94 12/23/22 02:30 107 H 23 97/63 L 93 12/23/22 02:00 105 H 17 99/62 L 92 12/23/22 01:30 106 H 19 94/56 L 94 12/23/22 01:15 105 H 17 88/60 L 94 12/23/22 01:00 111 H 19 95/60 L 93 12/23/22 00:45 105 H 25 H 90/45 L 96 12/23/22 00:30 104 H 23 88/61 L 93 12/23/22 00:15 107 H 24 80/50 L 95 12/23/22 00:00 37 C 109 H 16 79/49 L 95 12/22/22 23:30 113 H 24 88/45 L 94 12/22/22 23:16 116 H 19 73/48 L 94 12/22/22 23:12 118 H 22 74/49 L 97 12/22/22 23:00 115 H 20 72/43 L 97 12/22/22 22:57 114 H 26 H 73/41 L 94 12/22/22 22:53 117 H 24 69/39 L 94 12/22/22 22:30 125 H 24 73/44 L 94 12/22/22 22:28 37 C 126 H 22 86/42 L 92 12/23/22 00:42 12/22/22 23:25 118 H 23 94 12/22/22 22:47 96 12/22/22 22:05 124 H 24 88 L 12/22/22 22:33 123 H 28 H 94 12/22/22 22:30 123 H 28 H 94 12/22/22 21:55 126 H 15 88/40 L 88 L 12/22/22 21:50 128 H 24 92/48 L 89 L 12/22/22 21:45 126 H 27 H 88/52 L 88 L 12/22/22 21:40 122 H 2 L 85/50 L 89 L 12/22/22 21:58 121 H 28 H 90 12/22/22 21:56 12/22/22 21:35 125 H 14 94/52 L 89 L 12/22/22 21:30 127 H 27 H 103/63 88 L 12/22/22 21:29 131 H 24 88 L 12/22/22 21:29 103/55 L 12/22/22 21:28 129 H 26 H 87 L 12/22/22 21:25 134 H 28 H 85/71 L 89 L 12/22/22 21:24 130 H 25 H 110/68 83 L 12/22/22 21:20 126 H 13 97/66 L 85 L 12/22/22 21:16 124 H 26 H 96/67 L 87 L 12/22/22 21:15 126 H 21 12/22/22 21:09 118 H 22 87/55 L 12/22/22 21:05 118 H 24 86/57 L 92 12/22/22 21:00 113 H 19 78/45 L 87 L 12/22/22 20:58 124 H 24 69/47 L 89 L 12/22/22 20:55 80/42 L 12/22/22 20:55 122 H 17 86 L 12/22/22 20:45 120 H 32 H 88/52 L 12/22/22 20:36 116 H 30 H 75/49 L 92 12/22/22 20:30 116 H 26 H 78/46 L 94 12/22/22 20:18 86/45 L 12/22/22 20:18 113 H 19 88 L O2 Del Method O2 Del Method O2 Flow Rate FiO2 12/23/22 07:46 High Flow Nasal Cannula 40 65 12/23/22 07:26 High Flow Nasal Cannula 40 60 12/23/22 06:30 BiPAP 70 12/23/22 06:00 BiPAP 70 12/23/22 05:30 BiPAP 60 12/23/22 05:01 BiPAP 60 12/23/22 04:30 BiPAP 60 12/23/22 03:38 60 12/23/22 04:00 BiPAP 60 12/23/22 03:30 BiPAP 60 12/23/22 03:00 BiPAP 70 12/23/22 02:30 BiPAP 70 12/23/22 02:00 BiPAP 70 12/23/22 01:30 BiPAP 70 12/23/22 01:15 BiPAP 70 12/23/22 01:00 BiPAP 70 12/23/22 00:45 BiPAP 80 12/23/22 00:30 BiPAP 80 12/23/22 00:15 BiPAP 80 12/23/22 00:00 BiPAP 80 12/22/22 23:30 BiPAP 80 12/22/22 23:16 BiPAP 90 12/22/22 23:12 BiPAP 90 12/22/22 23:00 BiPAP 90 12/22/22 22:57 BiPAP 90 12/22/22 22:53 BiPAP 90 12/22/22 22:30 BiPAP 100 12/22/22 22:28 BiPAP 100 12/23/22 00:42 BiPAP 80 12/22/22 23:25 90 12/22/22 22:47 BiPAP 12/22/22 22:05 100 12/22/22 22:33 100 12/22/22 22:30 BiPAP 100 12/22/22 21:55 Oxymask, High Flow Nasal Cannula 12/22/22 21:50 Oxymask, High Flow Nasal Cannula 12/22/22 21:45 Oxymask, High Flow Nasal Cannula 12/22/22 21:40 High Flow Nasal Cannula, Non-rebreather 12/22/22 21:58 Oxymask, High Flow Nasal Cannula 40 100 12/22/22 21:56 High Flow Nasal Cannula, Non-rebreather 12/22/22 21:35 High Flow Nasal Cannula, Non-rebreather 15 12/22/22 21:30 High Flow Nasal Cannula, Non-rebreather 15 12/22/22 21:29 High Flow Nasal Cannula, Non-rebreather 15 12/22/22 21:29 12/22/22 21:28 High Flow Nasal Cannula, Non-rebreather 15 12/22/22 21:25 High Flow Nasal Cannula, Non-rebreather 15 12/22/22 21:24 Non-rebreather 15 12/22/22 21:20 Non-rebreather 15 12/22/22 21:16 Non-rebreather 15 12/22/22 21:15 12/22/22 21:09 12/22/22 21:05 Non-rebreather 15 12/22/22 21:00 Oxymask 15 12/22/22 20:58 Oxymask 15 12/22/22 20:55 12/22/22 20:55 Oxymask 10 12/22/22 20:45 12/22/22 20:36 Oxymask 10 12/22/22 20:30 Oxymask 10 12/22/22 20:18 12/22/22 20:18 Nasal Cannula 6 Critical Care Results & Data Vital Signs (Past 12 Hours) Vital Signs Temp Pulse Pulse Resp BP Pulse Ox Pulse Ox 12/23/22 07:46 111 H 29 H 90 12/23/22 07:26 110 H 28 H 91 12/23/22 06:30 112 H 26 H 104/64 96 12/23/22 06:00 105 H 21 90/57 L 92 12/23/22 05:30 112 H 22 82/60 L 93 12/23/22 05:01 113 H 26 H 91/64 L 92 12/23/22 04:30 112 H 20 83/55 L 92 12/23/22 03:38 122 H 24 94 12/23/22 04:00 36.7 C 115 H 22 109/62 93 12/23/22 03:30 108 H 19 102/64 94 12/23/22 03:00 109 H 23 102/69 94 12/23/22 02:30 107 H 23 97/63 L 93 12/23/22 02:00 105 H 17 99/62 L 92 12/23/22 01:30 106 H 19 94/56 L 94 12/23/22 01:15 105 H 17 88/60 L 94 12/23/22 01:00 111 H 19 95/60 L 93 12/23/22 00:45 105 H 25 H 90/45 L 96 12/23/22 00:30 104 H 23 88/61 L 93 12/23/22 00:15 107 H 24 80/50 L 95 12/23/22 00:00 37 C 109 H 16 79/49 L 95 12/22/22 23:30 113 H 24 88/45 L 94 12/22/22 23:16 116 H 19 73/48 L 94 12/22/22 23:12 118 H 22 74/49 L 97 12/22/22 23:00 115 H 20 72/43 L 97 12/22/22 22:57 114 H 26 H 73/41 L 94 12/22/22 22:53 117 H 24 69/39 L 94 12/22/22 22:30 125 H 24 73/44 L 94 12/22/22 22:28 37 C 126 H 22 86/42 L 92 12/23/22 00:42 12/22/22 23:25 118 H 23 94 12/22/22 22:47 96 12/22/22 22:05 124 H 24 88 L 12/22/22 22:33 123 H 28 H 94 12/22/22 22:30 123 H 28 H 94 12/22/22 21:55 126 H 15 88/40 L 88 L 12/22/22 21:50 128 H 24 92/48 L 89 L 12/22/22 21:45 126 H 27 H 88/52 L 88 L 12/22/22 21:40 122 H 2 L 85/50 L 89 L 12/22/22 21:58 121 H 28 H 90 12/22/22 21:56 12/22/22 21:35 125 H 14 94/52 L 89 L 12/22/22 21:30 127 H 27 H 103/63 88 L 12/22/22 21:29 131 H 24 88 L 12/22/22 21:29 103/55 L 12/22/22 21:28 129 H 26 H 87 L 12/22/22 21:25 134 H 28 H 85/71 L 89 L 12/22/22 21:24 130 H 25 H 110/68 83 L 12/22/22 21:20 126 H 13 97/66 L 85 L 12/22/22 21:16 124 H 26 H 96/67 L 87 L 12/22/22 21:15 126 H 21 12/22/22 21:09 118 H 22 87/55 L 12/22/22 21:05 118 H 24 86/57 L 92 12/22/22 21:00 113 H 19 78/45 L 87 L 12/22/22 20:58 124 H 24 69/47 L 89 L 12/22/22 20:55 80/42 L 12/22/22 20:55 122 H 17 86 L 12/22/22 20:45 120 H 32 H 88/52 L 12/22/22 20:36 116 H 30 H 75/49 L 92 12/22/22 20:30 116 H 26 H 78/46 L 94 O2 Del Method O2 Del Method O2 Flow Rate FiO2 12/23/22 07:46 High Flow Nasal Cannula 40 65 12/23/22 07:26 High Flow Nasal Cannula 40 60 12/23/22 06:30 BiPAP 70 12/23/22 06:00 BiPAP 70 12/23/22 05:30 BiPAP 60 12/23/22 05:01 BiPAP 60 12/23/22 04:30 BiPAP 60 12/23/22 03:38 60 12/23/22 04:00 BiPAP 60 12/23/22 03:30 BiPAP 60 12/23/22 03:00 BiPAP 70 12/23/22 02:30 BiPAP 70 12/23/22 02:00 BiPAP 70 12/23/22 01:30 BiPAP 70 12/23/22 01:15 BiPAP 70 12/23/22 01:00 BiPAP 70 12/23/22 00:45 BiPAP 80 12/23/22 00:30 BiPAP 80 12/23/22 00:15 BiPAP 80 12/23/22 00:00 BiPAP 80 12/22/22 23:30 BiPAP 80 12/22/22 23:16 BiPAP 90 12/22/22 23:12 BiPAP 90 12/22/22 23:00 BiPAP 90 12/22/22 22:57 BiPAP 90 12/22/22 22:53 BiPAP 90 12/22/22 22:30 BiPAP 100 12/22/22 22:28 BiPAP 100 12/23/22 00:42 BiPAP 80 12/22/22 23:25 90 12/22/22 22:47 BiPAP 12/22/22 22:05 100 12/22/22 22:33 100 12/22/22 22:30 BiPAP 100 12/22/22 21:55 Oxymask, High Flow Nasal Cannula 12/22/22 21:50 Oxymask, High Flow Nasal Cannula 12/22/22 21:45 Oxymask, High Flow Nasal Cannula 12/22/22 21:40 High Flow Nasal Cannula, Non-rebreather 12/22/22 21:58 Oxymask, High Flow Nasal Cannula 40 100 12/22/22 21:56 High Flow Nasal Cannula, Non-rebreather 12/22/22 21:35 High Flow Nasal Cannula, Non-rebreather 15 12/22/22 21:30 High Flow Nasal Cannula, Non-rebreather 15 12/22/22 21:29 High Flow Nasal Cannula, Non-rebreather 15 12/22/22 21:29 12/22/22 21:28 High Flow Nasal Cannula, Non-rebreather 15 12/22/22 21:25 High Flow Nasal Cannula, Non-rebreather 15 12/22/22 21:24 Non-rebreather 15 12/22/22 21:20 Non-rebreather 15 12/22/22 21:16 Non-rebreather 15 12/22/22 21:15 12/22/22 21:09 12/22/22 21:05 Non-rebreather 15 12/22/22 21:00 Oxymask 15 12/22/22 20:58 Oxymask 15 12/22/22 20:55 12/22/22 20:55 Oxymask 10 12/22/22 20:45 12/22/22 20:36 Oxymask 10 12/22/22 20:30 Oxymask 10 Lab & Micro Results (Past 24 Hours) RBC 3.79 M/uL (4.70-6.10) L 12/23/22 WBC 8.45 K/ul (4.8-10.8) 12/23/22 Hgb 11.3 g/dl (14.0-18.0) L 12/23/22 Hct 33.1 % (42.0-52.0) L 12/23/22 MCV 87.3 fL (80.0-100.0) 12/23/22 MCH 29.8 pg (25.0-34.0) 12/23/22 MCHC 34.1 g/dL (32.0-36.0) 12/23/22 RDW Standard Deviation 41.3 fL (36.4-46.3) 12/23/22 RDW Coefficient of Variation 13.0 % (11.5-14.5) 12/23/22 Plt Count 165 K/uL (130-400) 12/23/22 MPV 10.1 fL (9.4-12.4) 12/23/22 Neutrophils (%) (Auto) 94.6 % 12/22/22 Lymphocytes (%) (Auto) 2.4 % 12/22/22 Monocytes # (Auto) 0.16 K/uL (0.11-0.59) 12/22/22 Eosinophils # (Auto) 0.00 K/uL (0-0.50) 12/22/22 Immature Granulocyte % (Auto) 0.2 % 12/22/22 Neutrophils # (Auto) 5.87 K/uL (1.40-6.50) 12/22/22 Lymphocytes # (Auto) 0.15 K/uL (1.2-3.4) L 12/22/22 Monocytes # (Auto) 0.16 K/uL (0.11-0.59) 12/22/22 Eosinophils # (Auto) 0.00 K/uL (0-0.50) 12/22/22 Basophils # (Auto) 0.01 K/uL (0-0.2) 12/22/22 Immature Granulocyte # (Auto) 0.01 K/uL (0.01-0.20) 3 ANC 7.86 K/uL (1.4-6.5) H 12/23/22 ALC 0.08 K/uL (1.2-3.4) L 12/23/22 Neutrophils % (Manual) 93 % 12/23/22 Lymphocytes % (Manual) 1 % 12/23/22 Monocytes % (Manual) 1 % 12/23/22 Eosinophils % (Manual) 1 % 12/23/22 Metamyelocytes % (manual) 6 % 12/23/22 Other Cells % 1 % 12/23/22 Neutrophils # (Manual) 7.86 K/uL (1.40-6.50) H 12/23/22 Lymphocytes # (Manual) 0.08 K/uL (1.2-3.4) L 12/23/22 Monocytes # (Manual) 0.08 K/uL (0.11-0.59) L 12/23/22 Eosinophils # (Manual) 0.05 K/uL (0-0.50) 12/23/22 Metamyelocytes # (Manual) 0.51 K/uL (0-0) H 12/23/22 Other Cells # 0.05 K/uL (0-0) H 12/23/22 Polychromasia 1+ 12/23/22 Toxic Granulation 1+ 12/23/22 Na 136 mmol/L (136-145) 12/23/22 K 4.1 mmol/L (3.5-5.1) 12/23/22 Cl 105 mmol/L (98-107) 12/23/22 CO2 21 mmol/L (21-32) 12/23/22 Anion Gap 10 (3-11) 12/23/22 BUN 27 mg/dl (6-23) H 12/23/22 Creatinine 1.44 mg/dl (0.6-1.4) H 12/23/22 Estimated GFR ( Amer) 79.3 ml/min 12/23/22 Estimated GFR (Non-Af Amer) 68.4 ml/min 12/23/22 BUN/Creatinine Ratio 18.8 (10-20) 12/23/22 Glu 206 mg/dl (70-99(Fasting)) H 12/23/22 Ca 7.2 mg/dl (8.6-10.3) L 12/23/22 Total Bilirubin 0.8 mg/dl (0.2-1.0) 12/23/22 AST 17 U/L (13-39) 12/23/22 ALT 9 U/L (7-52) 12/23/22 Alkaline Phosphatase 21 U/L (34-104) L 12/23/22 TP 4.7 gm/dl (6.0-8.3) L 12/23/22 Albumin 3.1 gm/dl (3.4-5.0) L 12/23/22 Globulin 1.6 gm/dl (2.5-4.0) L 12/23/22 Albumin/Globulin Ratio 1.9 (0.9-2) 12/23/22 Mg 1.1 mg/dl (1.7-2.4) L 12/23/22 04:27 Calcium Level 7.2 mg/dl (8.6-10.3) L 12/23/22 04:27 Prothromb Time International Ratio 1.1 (0.9-1.1) 12/22/22 17:5 0 Arterial Blood pH 7.40 (7.35-7.45) 12/22/22 20:42 Arterial Blood Partial Pressure CO2 32 mmHg (35-46) L 12/22/22 20:42 Arterial Blood Partial Pressure O2 59 mmHg (80-95) L 12/22/22 2 0:42 Arterial Blood HCO3 20 mmol/L (19-24) 12/22/22 20:42 Arterial Blood Base Excess -4.0 mEq/L (-9-1.8) 12/22/22 20:42 Arterial Blood Oxygen Saturation 92.1 % (90-95) 12/22/22 20:42 Blood Gas Oxygen Given 50 12/22/22 20:42 Bob Test Pass 12/23/22 03:25 Microbiology 12/22/22 18:51 Aerobic Blood Culture - Preliminary Blood Gram positive cocci in chains Anaerobic Blood Culture - Preliminary Gram positive cocci in chains 12/22/22 21:25 Gram Stain - Final Sputum, Expectorated Diagnostic Findings (Past 24 Hours) Chest X-Ray 12/22/22 17:35 XR chest 1V portable CLINICAL HISTORY: Chest pain, nonspecific COMPARISON STUDY: No previous studies for comparison. FINDINGS: Lung volumes are normal. Hazy asymmetric airspace opacity within the mid to upper right lung is present. There is no pneumothorax or pleural effusion. Cardiac size is normal. Mediastinal contours are normal. There is no evidence for pulmonary edema. IMPRESSION: Hazy asymmetric right mid to upper lung airspace opacity. The radiographic appearance is nonspecific but statistically reflects pneumonia. Post treatment radiographs to ensure resolution are recommended. ACT 112: Negative or not required by law. Electronically signed by: Valdo Peterson M.D. 12/22/2022 6:32 PM Abdomen/Pelvis CT 12/22/22 18:48 Exam(s): CT ABDOMEN + PELVIS With Contrast IV Amt: 114 ml optiray EXAM: CT Abdomen and Pelvis With Intravenous Contrast CLINICAL HISTORY: Reason for exam: vomitting. TECHNIQUE: Axial computed tomography images of the abdomen and pelvis with intravenous contrast. CTDI is 40.88 mGy and DLP is 767.44 mGy-cm. Automated exposure control was utilized for the study. A dose lowering technique was utilized adhering to the principles of ALARA. CONTRAST: Patient received 114 ml optiray of IV contrast COMPARISON: No relevant prior studies available. FINDINGS: Lung bases: Unremarkable. No mass. No consolidation. ABDOMEN: Liver: Unremarkable. No mass. Gallbladder and bile ducts: Unremarkable. No calcified stones. No ductal dilation. Pancreas: Unremarkable. No mass. No ductal dilation. Spleen: Unremarkable. No splenomegaly. Adrenals: Unremarkable. No mass. Kidneys and ureters: Mild fullness of the left renal collecting system. No delayed nephrogram. Stomach and bowel: Mild wall thickening of small bowel, correlate for mild enteritis. Liquid stool in the colon, consistent with diarrheal disease. No obstruction. PELVIS: Appendix: No findings to suggest acute appendicitis. Bladder: Unremarkable. No mass. Reproductive: Unremarkable as visualized. ABDOMEN and PELVIS: Intraperitoneal space: Unremarkable. No free air. No significant fluid collection. Bones/joints: No acute fracture. No dislocation. Soft tissues: Unremarkable. Vasculature: Unremarkable. No abdominal aortic aneurysm. Lymph nodes: Unremarkable. No enlarged lymph nodes. IMPRESSION: 1. Mild wall thickening of small bowel, correlate for mild enteritis. 2. Liquid stool in the colon, consistent with diarrheal disease. Electronically signed by: Marc Oakes MD 12/22/22 19:52 PM Chest CTA 12/22/22 18:48 Exam(s): CTA CHEST IV Amt: 114 mnl optiray EXAM: CT Angiography Chest With Intravenous Contrast CLINICAL HISTORY: Reason for exam: ro pe. TECHNIQUE: Axial computed tomographic angiography images of the chest with intravenous contrast. CTDI is 40.88 mGy and DLP is 767.44 mGy-cm. Automated exposure control was utilized for the study. A dose lowering technique was utilized adhering to the principles of ALARA. MIP reconstructed images were created and reviewed. COMPARISON: No relevant prior studies available. FINDINGS: Pulmonary arteries: Unremarkable. No pulmonary embolism. Aorta: No acute findings. No thoracic aortic aneurysm. Lungs: Airspace consolidation in the right upper lobe, consistent with lobar pneumonia. Mild patchy opacity is also present in the right middle lobe and right lower lobe, to a lesser degree. Pleural space: Unremarkable. No significant effusion. No pneumothorax. Heart: Unremarkable. No cardiomegaly. No significant pericardial effusion. No evidence of RV dysfunction. Bones/joints: No acute fracture. No dislocation. Soft tissues: Unremarkable. Lymph nodes: Unremarkable. No enlarged lymph nodes. IMPRESSION: Airspace consolidation in the right upper lobe, consistent with lobar pneumonia. Electronically signed by: Marc Oakes MD 12/22/22 19:51 PM Chest X-Ray 12/22/22 23:54 XR chest 1V portable HISTORY: CVC insertion COMPARISON: Chest 12/22/2022. FINDINGS: A right jugular central venous catheter terminates in the expected location of the SVC. No pneumothorax. The heart is normal in size. Progressive right lung airspace opacities and a trace right pleural effusion. There are patchy left basilar airspace opacities also noted. Findings are consistent with a multifocal pneumonia. IMPRESSION: 1. Right jugular central venous catheter terminates at the SVC. No pneumothorax. 2. Progressive multifocal pneumonia. ACT 112: Negative or not required by law. Electronically signed by: Emanuel Cassidy M.D. 12/23/2022 7:17 AM Chest X-Ray 12/23/22 07:00 XR chest 1V portable HISTORY: Resp failure COMPARISON: Chest 12/22/2022. FINDINGS: The right jugular central venous catheter terminates at the SVC. No pneumothorax. Trace right pleural effusion persists. The heart is normal in size. Multifocal bilateral airspace opacities are again noted. These are similar to the prior study. No evidence for pulmonary edema. IMPRESSION: Redemonstration of the multifocal airspace opacities consistent with a pneumonia. ACT 112: Negative or not required by law. Electronically signed by: Emanuel Cassidy M.D. 12/23/2022 7:18 AM I & O Totals 24 Hours 12/22/22 12/23/22 12/24/22 06:59 06:59 06:59 Intake Total 5680.530 / 5680.530 362.100 / 362.100 Output Total 277 / 277 Balance 5403.530 / 5403.530 362.100 / 362.100 Cumulative 12/22/22 17:26 thru 12/23/22 08:13 Intake Total 6042.630 Output Total 277 Balance 5765.630 RT Ventilator Mngmt (Last Documented) Ventilator Ordered Settings Respiratory Rate 29 12/23/22 07:46 Fraction of Inspired Oxygen 65 12/23/22 07:46 Ventilator - PT Measurements Respiratory Rate 29 Coding Level of Care Code 83887 CRITICAL CARE 1ST 30-74M Diagnoses Septic shock A41.9; R65.21 Hematemesis K92.0 Acute respiratory failure with hypoxia J96.01 Bacteremia due to Gram-positive bacteria R78.81 Renal failure, acute N17.9 Anemia D64.9 Lactic acid acidosis E87.20
[2022-12-23] MEDS ORDERED: RAPID SEQUENCE INDUCTION BAG ONE (08:57)
[2022-12-23] MEDS ORDERED: PROPOFOL IV EMULSION 10 MG/ML 100 ML VIAL IV ONE (08:57)
[2022-12-23] MEDS ORDERED: SODIUM BICARB 8.4% INJ 50 MEQ/50 ML SYR IV ONE ×2 (09:30→09:45)
[2022-12-23] MEDS ORDERED: MIDAZOLAM BOLUS FROM BAG IV PRN (09:33)
[2022-12-23] MEDS ORDERED: STAT IV Infusion **Titration per Protocol STA ×2 (09:33→09:36)
[2022-12-23] MEDS ORDERED: fentaNYL BOLUS from BAG IV PRN (09:33)
[2022-12-23] MEDS ORDERED: MIDAZOLAM HCL 125MG/250ML D5W IV ONE (09:34)
[2022-12-23] MEDS ORDERED: fentaNYL citrate 2,500 MCG/250 ML BAG IV ONE (09:35)
[2022-12-23] MEDS ORDERED: PROPOFOL BOLUS FROM BAG IV PRN (09:36)
[2022-12-23 09:42] LABS: iSTAT Art Bld Gas pCO2 Correct 38 mmHg (35-46); iSTAT Art Bld Gas pH Corrected 7.278 (7.35-7.45); iSTAT Arterial Blood Gas HCO3 18 meg/L (19-24); iSTAT Arterial Blood Gas pCO2 38 mmHg (35-46); iSTAT Arterial Blood Gas pH 7.28 (7.35-7.45); iSTAT Arterial Blood Gas pO2 60 mmHg (80-95); iSTAT Arterial Blood Gas pO2 C 60; iSTAT Carbon Dioxide 19 mmol/L (24-31); iSTAT FiO2 100 %; iSTAT Hematocrit 33 % (42-52); iSTAT Hemoglobin 11.2 g/dl (14.0-18.0); iSTAT Potassium 4.2 mmol/L (3.3-5.0); iSTAT Site L Radial; iSTAT Sodium 134 mmol/L (135-144)
--- NOTE | 2022-12-23 09:44 | Procedure Note ---
Procedure Note Date of Service December 23, 2022 Note INTUBATION PROCEDURE NOTE: Provider: Stephen Feliz MD A time-out was completed verifying correct patient, procedure, site, positioning. Patient was evaluated and required intubation for hypoxemic respiratory failure and respiratory muscle fatigue. Sedative agent used: 40 mg etomidate, 5 mg Versed, 10 mL propofol Paralysis agent used: None Verbal consent was obtained from the patient at bedside with father in attendance The patient was prepared in the appropriate fashion. Sedation was achieved utilizing etomidate propofol and Versed. The patient had been preoxygenated using high flow heated nasal cannula. Video laryngoscopy was performed using a 3 oh glide scope. Grade 1 view was obtained. An 8.0 endotracheal tube was placed under direct visualization to 24 cm at the lip. The stylette was removed and balloon was inflated with 10mL of air. Appropriate Colorimetric change was appreciated. Bilateral breath sounds were heard without air sounds in the abdomen. Tube position was verified bronchoscopically Patient tolerated the procedure well with transient oxygen desaturations into the mid to low 80% range. Coding CPT Codes Resuscitation - Resuscitation: 08283 Endotracheal Intubation, emergency ([id number]) [facility] [place] Procedure Codes (Charges) Resuscitation Resuscitation: 80701 Endotracheal Intubation, emergency
--- NOTE | 2022-12-23 09:45 | Procedure Note ---
Procedure Note Date of Service December 23, 2022 Note ARTERIAL LINE PROCEDURE NOTE: Procedure: Arterial Line Placement Provider: Stephen Feliz MD Indication: Monitoring on Pressors Anesthesia: None Verbal consent was obtained from the patient prior to initiation of the procedure. He agreed to the procedure. Father was present at bedside A time-out was completed verifying correct patient, procedure, site, positioning, and implant(s) or special equipment if applicable. Allens test was performed to ensure adequate perfusion. Patients left wrist was prepped and draped in the usual sterile fashion. A 20g Arrow arterial line was introduced into the left radial artery. Catheter was threaded, and the needle was removed with appropriate blood return. Good waveform was observed. The patient tolerated the procedure well. Blood Loss: Minimal Complications: None Coding CPT Codes Tubes, Drains, and Vasc Access - Tubes, Drains, and Vasc Access: [id number] Arterial Cath/Cannulation Sampling/Monitoring/Transfusion ([id number]) [facility] [place] Procedure Codes (Charges) Tubes, Drains, and Vasc Access Procedure 1: Tubes, Drains, and Vasc Access: [id number] Arterial Cath/Cannulation Sampling/Monitoring/Transfusion
--- NOTE | 2022-12-23 09:48 | Procedure Note ---
Procedure Note Date of Service December 23, 2022 Note Procedure: Fiberoptic bronchoscopy Therapeutic aspiration of secretions, initial Provider: Stephen Feliz MD Consent: Procedure was emergent. Patient intubated and sedated and unable to provide consent. Procedure: Patient was in the ICU. He has been intubated for hypoxemic respiratory failure. He had oxygen saturations in the mid 80% range and bronchoscopy was indicated to ensure appropriate placement of the tube as well as obtain lower respiratory specimens. The fiberoptic scope was advanced through the existing endotracheal tube via the Bodai adapter. The tube was sounded and withdrawn 1 cm to 24 cm at the teeth. It was secured. I was able to visualize the brayden. There were some secretions which were thin and nonbloody in the endotracheal tube. These were cleared with suction. The airways were diffusely inflamed but patent. No significant purulent material was identified. A trap was attached to the bronchoscope and 20 cc of saline was instilled into the right-sided airways and suctioned free with specimens to be sent for microbiologic analysis. A systemic inspection of the airways was conducted. The airways were widely patent. The mucosa was inflamed. The bronchoscope was then removed from the airways. The patient tolerated the procedure well without obvious complication. Patient was returned to the recovery room. Impression: 1. Endotracheal tube in good position in the trachea. 2. Diffusely inflamed airways. 3. Continue clear secretions throughout the tracheobronchial tree, await microbiologic analysis. Coding CPT Codes Pulmonary/Thoracic - Pulmonary and Thoracic: 33105 Bronchoscopy, clear airways ([id number]) [facility] [place] Procedure Codes (Charges) Pulmonary/Thoracic Procedure 1: Pulmonary and Thoracic: [id number] Bronchoscopy, clear airways
[2022-12-23] MEDS: fentaNYL citrate 2,500 MCG/250 ML BAG IV SCH (09:50)
[2022-12-23] MEDS: MIDAZOLAM HCL 125 MG/250 ML BAG IV SCH (09:51)
[2022-12-23] MEDS: cefTRIAXone SODIUM 2,000 MG in DEXTROSE 5% 50 ML IV SCH (09:51)
[2022-12-23] MEDS: propofoL 1,000 MG/100 ML VIAL IV SCH ×3 (09:52→22:39)
[2022-12-23] MEDS: HEPARIN SOD 5,000 UNIT/0.5 ML VIAL SQ SCH ×2 (09:55→20:20)
[2022-12-23] MEDS: DOXYCYCLINE HYCLATE 100 MG in DEXTROSE 5% 100 ML IV SCH ×2 (10:01→22:01)
--- NOTE | 2022-12-23 10:30 | XRay Report ---
XR chest 1V portable CLINICAL HISTORY: POST INTUBATION, OG TUBE PLACEMENT COMPARISON STUDY: Chest CT December 22, 2022 and chest radiograph performed earlier today. FINDINGS: Tip of endotracheal tube is 4.8 cm above the brayden. Tip of nasogastric tube is within the body of the stomach. There is no pneumothorax. Right internal jugular central line remains in place. A small right pleural effusion has increased in size since prior exam. Multifocal right lung consolid ation has progressed. Left basilar consolidation has mildly progressed. Cardiomediastinal silhouette is stable. IMPRESSION: 1. Satisfactory positioning of lines and tubes. 2. Progression of extensive airspace opacities which favor multifocal pneumonia. Superimposed aspirat ion could appear similar. 3. Increase in size of a small right pleural effusion. No pneumothorax. ACT 112: Negative or not required by law. Electronically signed by: Valdo Peterson M.D. 12/23/2022 10:29 AM
--- NOTE | 2022-12-23 10:51 | XCELERA ---
[id number]
[2022-12-23] MEDS ORDERED: PANTOprazole 40 MG in SYRINGE 0 ML IV SCH (11:00)
[2022-12-23] MEDS ORDERED: MIDAZOLAM HCL 5 MG/ML 2ML VIAL IV ONE (11:31)
[2022-12-23] MEDS ORDERED: ROCURONIUM BROMIDE 10 MG/ML 5 ML VIAL IV ONE (11:31)
[2022-12-23] MEDS ORDERED: ETOMIDATE 2 MG/ML 20 ML VIAL IV ONE (11:31)
[2022-12-23] MEDS ORDERED: ACETAMINOPHEN SUSP 325 MG/10.15 ML UDC PO PRN (11:36)
--- NOTE | 2022-12-23 13:27 | Cardiology Consultation ---
Date of Consultation December 23, 2022 Assessment & Plan (1) Cardiomyopathy: (2) Bacteremia due to Gram-positive bacteria: (3) Acute respiratory failure with hypoxia: (4) Sepsis due to pneumonia: (5) Lactic acid acidosis: (6) Hypomagnesemia: Healthy 22-year-old man with no prior symptoms to suggest pre-existing cardiomyopathy admitted with rapidly progressive multilobar pneumonia complicated by septic shock requiring mechanical ventilation and vasopressor support. 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 Direct myoc ardial inflammation (myocarditis) is excluded by the normal troponin. Therapy consists of supportive care to optimize hemodynamics while avoiding volume depletion/overload. Agree with norepinephrine as predominant agent given both inotropic and vasopressor effects. Also, agree with vasopressin given its norepinephrine sparing benefit by augmenting peripheral vascular resistance. No role for dobutamine given hypotension. Volume status appears appropriate and well need to be monitored closely, IVC is not underfilled on echocardiogram and jugular venous pulse is not elevated. If there is a marked change in his clinical status would reevaluate cardiac function with limited follow-up echocardiogram. Otherwise, if he gradually improves, could obtain echocardiogram prior to discharge to reassess LV systolic function. If systolic function remains significantly impaired, may need guideline directed therapy for cardiomyopathy as well as follow-up echocardiogram to reassess progress as outpatient. Will continue to follow along from a cardiac standpoint, as he is receiving appropriate and optimal care currently no specific recommendations at this time. History of Present Illness Reason for Consultation: Reduced EF on echo Requesting Physician: Julia Rodriguez MD Attending Physician: Julia Rodriguez MD History of Present Illness 22-year-old healthy man with history of only nephrolithiasis (laser extraction/transient stenting 2020), who had been in good health and very physically active (lifting weights, etc.) until yesterday, when after drinking approximately 4 beers he later awoke with vomiting, right-sided chest pain, and dyspnea and upon presentation to the ER was found to be hypotensive and hypoxic with right upper lobe infiltrate on chest x-ray, overnight his status deteriorated and he required intubation and mechanical ventilation as well as vasopressor support, echocardiogram showed severe global hypokinesis with ejection fraction 25 to 30%. As noted, at baseline he was very physically active and had not been noting any dyspnea, exercise intolerance, or other complaints. Currently, he is intubated/mechanically ventilated and on 250 mcg/min norepinephrine and vasopressin 0.04 units/min maintaining mean arterial pressure in the 60-65 mmHg range. He received intravenous fluid resuscitation and antibiotics for multilobar pneumonia (aspiration versus other etiology). His oxygenation has been modestly improving and his hemodynamics have been stable on vasopressors. High-sensitivity troponin on admission was unremarkable (4.1) and ECG showed sinus tachycardia at 117 bpm and incomplete right bundle branch block, ST segments and T waves were unremarkable. Echocardiogram showed borderline dilated left ventricle with severely reduced systolic function (EF 25-30%) due to severe global hypokinesis of the left ventricle, right ventricle is normal in size but also showed severely reduced systolic function, RVSP was normal and IVC was moderately dilated. Due to sedation, he was unable to offer additional history or somatic complaints. Allergies Allergy/AdvReac Type Severity Reaction Status Date / Time No Known Allergies Allergy Verified 12/22/22 20:27 Home Medications Medication Instructions Recorded Confirmed Type ibuprofen 200 mg tablet (Advil) 400 mg PO Q6H PRN Fever Or Pain 12/22/22 12/22/22 History Patient History Medical History ADHD GERD (gastroesophageal reflux disease) History of asthma Childhood History of COVID-19 Dx 08/2020 > no current issues Kidney stones Nephrolithiasis Surgical History H/O cystoscopy Cystoscopy, ureteroscopy, laser lithotripsy (06/25/21): LMA at [facility] History of esophagogastroduodenoscopy (EGD) History of hernia repair History of nasal cauterization Family History Grandfather (Maternal) Heart disease Myocardial infarction Cancer Grandfather (Paternal) Heart disease Myocardial infarction Father Kidney stones Other No family history of adverse response to anesthesia Social History Smoking Status: Former smoker Tobacco Type: E-cigarettes / Vaping Second Hand Exposure: No; Do You Dip or Chew Tobacco: No; Hx Alcohol Use: Yes Alcohol type: beer Hx Substance Use: No Preferred Language: Martiniquais Communication Ability: Effective 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 Temperature 101.3 F BP 94/50 mmHg currently Pulse 107 bpm and regular Respirations 24 Skin: no ecchymoses or generalized lesions. HEENT: unremarkable. Neck: Jugular venous pulse appears unremarkable (bed elevated 30 degrees, jugular venous pulse seen and supra sternal notch but no higher), no carotid bruits. Lungs: Good airflow, scattered crackles and rhonchi, no wheezing. Tachypneic without accessory muscle use. Cardiac: regular rhythm, normal S1 and S2, no murmur or gallop. Abdomen: benign. Extremities: no edema, pulses intact, extremities warm with good capillary refill. Neurologic: Sedated, awakens briefly with semipurposeful movement, grossly nonfocal. Results & Data Laboratory Results As noted, high-sensitivity troponin 4.1. Normal white count, hemoglobin 11.3, normal platelet count. Normal electrolytes, BUN 27, creatinine 1.44. D-dimer 1140. ABG 7.2 8/60/18. Lactate 3.2. Magnesium 1.1. Procalcitonin 15.12. 1/2 blood cultures is growing gram-positive cocci in chains. Diagnostic Findings Chest x-ray initially showed right upper lobe infiltrate, subsequently progressive right-sided and left base infiltrates noted. Initial CT showed only right upper lobe infiltrate, no pulmonary embolism. PG Care Time/CCT Total # of Minutes Spent Total Time Spent with Patient: Total time spent is greater than 50% in coordination of care (as documented) at patient's floor/unit and/or counseling patient: Coding Level of Care Code 52956 OFFICE CONSULT LVL M Diagnoses Cardiomyopathy I42.9 Bacteremia due to Gram-positive bacteria R78.81 Acute respiratory failure with hypoxia J96.01 Sepsis due to pneumonia J18.9; A41.9 Lactic acid acidosis E87.20 Hypomagnesemia E83.42
[2022-12-23] MEDS: ACETAMINOPHEN SUSP 325 MG/10.15 ML UDC PO PRN ×2 (15:45→20:21)
[2022-12-23 18:19] LABS: iSTAT Art Bld Gas pCO2 Correct 38 mmHg (35-46); iSTAT Arterial Blood Gas HCO3 22 meg/L (19-24); iSTAT Arterial Blood Gas pCO2 35 mmHg (35-46); iSTAT Arterial Blood Gas pH 7.41 (7.35-7.45); iSTAT Arterial Blood Gas pO2 63 mmHg (80-95); iSTAT Arterial Blood Gas pO2 C 72; iSTAT Carbon Dioxide 23 mmol/L (24-31); iSTAT FiO2 40 %; iSTAT Hematocrit 30 % (42-52); iSTAT Hemoglobin 10.2 g/dl (14.0-18.0); iSTAT Potassium 3.6 mmol/L (3.3-5.0); iSTAT Site Art Line; iSTAT Sodium 134 mmol/L (135-144)
[2022-12-23 18:35] LABS: BUN Creatinine Ratio 21.8 (10-20); Calcium 7.4 mg/dl (8.6-10.3); Creatinine Clr Calc Pharmacy 114.7 ml/min; Est GFR (African American) 121.8 ml/min; Est GFR (Non-African American) 105.1 ml/min; Magnesium 2.1 mg/dl (1.7-2.4); Phosphorus 2.8 mg/dl (2.5-4.9); Potassium 3.9 mmol/L (3.5-5.1)
[2022-12-23] MEDS: PANTOprazole 40 MG in SYRINGE 0 ML IV SCH (20:20)
[2022-12-24] MEDS: PLASMA-LYTE A 1,000 ML IV SCH (01:50)
[2022-12-24] MEDS: NOREPINEPHRINE/D5W 4 MG/250 ML PLCT IV SCH ×3 (02:44→23:35)
[2022-12-24 03:56] LABS: iSTAT Art Bld Gas pCO2 Correct 32 mmHg (35-46); iSTAT Art Bld Gas pH Corrected 7.446 (7.35-7.45); iSTAT Arterial Blood Gas HCO3 22 meg/L (19-24); iSTAT Arterial Blood Gas pCO2 31 mmHg (35-46); iSTAT Arterial Blood Gas pH 7.45 (7.35-7.45); iSTAT Arterial Blood Gas pO2 68 mmHg (80-95); iSTAT Arterial Blood Gas pO2 C 71; iSTAT Carbon Dioxide 23 mmol/L (24-31); iSTAT FiO2 30 %; iSTAT Hematocrit 30 % (42-52); iSTAT Hemoglobin 10.2 g/dl (14.0-18.0); iSTAT Potassium 3.4 mmol/L (3.3-5.0); iSTAT Site Art Line; iSTAT Sodium 131 mmol/L (135-144)
[2022-12-24] MEDS: ACETAMINOPHEN SUSP 325 MG/10.15 ML UDC PO PRN ×4 (04:15→19:54)
[2022-12-24 05:34] LABS: Albumin Globulin Ratio 1.5 (0.9-2); Albumin Level 2.9 gm/dl (3.4-5.0); BUN Creatinine Ratio 27.3 (10-20); Bilirubin,Total 0.6 mg/dl (0.2-1.0); Calcium 7.8 mg/dl (8.6-10.3); Creatinine Clr Calc Pharmacy 150.5 ml/min; Est GFR (African American) 149.3 ml/min; Est GFR (Non-African American) 128.8 ml/min; Magnesium 2.3 mg/dl (1.7-2.4); Phosphorus 2.1 mg/dl (2.5-4.9); Potassium 3.6 mmol/L (3.5-5.1); Total Protein 4.9 gm/dl (6.0-8.3)
[2022-12-24] MEDS: propofoL 1,000 MG/100 ML VIAL IV SCH ×7 (05:35→22:04)
[2022-12-24] MEDS: INSULIN ASPART PER UNIT CHARGE SC SCH ×4 (05:36→23:36)
[2022-12-24 05:41] LABS: Hemoglobin 10.7 g/dl (14.0-18.0); Mean Corpuscular Hgb Conc 34.5 g/dL (32.0-36.0); Mean Corpuscular Volume 86.8 fL (80.0-100.0); Mean Platelet Volume 9.9 fL (9.4-12.4); Platelet Count 111 K/uL (130-400); RDW Coefficient of Variation 12.8 % (11.5-14.5); RDW Standard Deviation 40.8 fL (36.4-46.3); Red Blood Count 3.57 M/uL (4.70-6.10); White Blood Count 8.13 K/ul (4.8-10.8)
[2022-12-24 05:43] LABS: ALC (manual) 0.16 K/uL (1.2-3.4); ANC (manual) 7.72 K/uL (1.4-6.5); Dohle Bodies 1+; Echinocytes 1+; Eosinophils # (manual) 0.16 K/uL (0-0.50); Eosinophils % (manual) 2 %; Lymphocytes # (manual) 0.16 K/uL (1.2-3.4); Lymphocytes % (manual) 2 %; Monocytes # (manual) 0.16 K/uL (0.11-0.59); Monocytes % (manual) 2 %; Neutrophils # (manual) 7.72 K/uL (1.40-6.50); Neutrophils % (manual) 95 %
[2022-12-24] MEDS ORDERED: POTASSIUM PHOS 3 MMOL/1 ML INFUSION IV STA ×2 (05:56→19:41)
[2022-12-24] MEDS ORDERED: POTASSIUM PHOSPHATE 21 MMOL in SODIUM CHLORIDE 0.9% 500 ML IV ONE (06:15)
--- NOTE | 2022-12-24 07:00 | Hospitalist Progress Note ---
Date of Service December 24, 2022 Assessment & Plan (1) Acute respiratory failure with hypoxia: Plan: 22yo male with a history of nephrolithiasis (s/p laser extraction in 2020) and no other PMHx who presents with acute hypoxic respiratory failure and septic shock secondary to strep pyogenes pneumonia and bacteremia, requiring ICU care with mechanical ventilation and pressor support. Acute hypoxic respiratory failure Secondary to multifocal pneumonia; strep pyogenes bacteremia Mechanical ventilation and sedation with propofol, Versed, fentanyl a/cmv vc. vt 480. peep 7. fio2 30-40%. Septic shock Requiring norepinephrine and vasopressin Febrile to 38+C Procal elev to 78 Severe presentation for patient w/ no risk factors. As per below, consider strep toxic shock syndrome. 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 Plasma-Lyte 30mL/hr Code status: full DVT ppx: heparin sq 5000u q12h Dispo: ICU (2) Aspiration pneumonia: (3) Cardiomyopathy: (4) Septic shock: (5) Bacteremia due to Gram-positive bacteria: (6) Anemia: (7) Lactic acid acidosis: (8) Thrombocytopenia: Admission and Anticipated Discharge Date Admission Date: December 22, 2022 Supervising Physician Co-Signing Physician Notes Resident Physician Supervision Note: I independently interviewed and examined the patient and verified the sheth history and physical, reviewed labs and image studies and agree with resident findings and care plan. Subjective Per nursing, some improvement in mechanical ventilation and oxygen requirements. The pressors are approximately half of yesterday's. Subjective history limited secondary to intubated status. Parents are at bedside. Questions answered. Review of Systems Review of Systems: Unobtainable due to endotracheal tube Physical Exam Physical Exam: General: Sedated, intubated. HEENT: Atraumatic, normocephalic. EOMI Pulm: ETT+. No obvious crackles anteriorly. Cardiac: RRR, -mrg. No LE edema grossly. Abdominal: Nontender, nondistended, soft. Results & Data Results & Data Vital Signs (Past 12 Hours) Vital Signs Temp Pulse Resp BP Pulse Ox Pulse Ox O2 Del Method 12/24/22 06:00 99 H 20 102/54 L 95 Mechanical Vent 12/24/22 05:30 102 H 20 94 Mechanical Vent 12/24/22 05:00 105 H 20 101/51 L 93 Mechanical Vent 12/24/22 04:30 111 H 20 92 Mechanical Vent 12/24/22 04:00 37.9 C H 103 H 20 104/61 95 Mechanical Vent 12/24/22 03:30 98 H 24 93 Mechanical Vent 12/24/22 04:00 12/24/22 03:40 101 H 23 96 12/24/22 03:00 98 H 24 98/55 L 93 Mechanical Vent 12/24/22 02:30 98 H 24 92 Mechanical Vent 12/24/22 02:00 96 H 24 101/58 L 96 Mechanical Vent 12/24/22 01:30 95 H 24 96 Mechanical Vent 12/24/22 01:00 95 H 24 99/56 L 98 Mechanical Vent 12/24/22 00:30 90 24 98 Mechanical Vent 12/24/22 00:00 36.3 C L 92 H 24 102/60 98 Mechanical Vent 12/23/22 23:30 93 H 24 98 Mechanical Vent 12/24/22 00:00 12/23/22 23:00 90 24 106/63 100 Mechanical Vent 12/23/22 22:30 97 H 24 96 Mechanical Vent 12/23/22 22:00 37 C 89 24 123/73 99 Mechanical Vent 12/23/22 22:50 94 H 24 97 12/23/22 22:42 100 12/23/22 21:30 94 H 24 98 Mechanical Vent 12/23/22 21:00 111 H 24 99/50 L 99 Mechanical Vent 12/23/22 20:30 120 H 24 118/57 L 96 Mechanical Vent 12/23/22 20:00 38.8 C H 128 H 24 102/63 91 Mechanical Vent 12/23/22 19:30 107 H 24 104/74 95 Mechanical Vent 12/23/22 19:00 101 H 24 115/58 L 96 Mechanical Vent 12/23/22 20:00 Mechanical Vent 12/23/22 20:00 12/23/22 20:18 126 H 24 94 12/23/22 20:02 132 H 33 H 90 12/23/22 20:02 Mechanical Vent O2 Del Method FiO2 12/24/22 06:00 30 12/24/22 05:30 30 12/24/22 05:00 30 12/24/22 04:30 30 12/24/22 04:00 30 12/24/22 03:30 30 12/24/22 04:00 30 12/24/22 03:40 30 12/24/22 03:00 30 12/24/22 02:30 30 12/24/22 02:00 30 12/24/22 01:30 30 12/24/22 01:00 30 12/24/22 00:30 30 12/24/22 00:00 30 12/23/22 23:30 30 12/24/22 00:00 30 12/23/22 23:00 40 12/23/22 22:30 40 12/23/22 22:00 40 12/23/22 22:50 40 12/23/22 22:42 Mechanical Vent 12/23/22 21:30 40 12/23/22 21:00 50 12/23/22 20:30 60 12/23/22 20:00 70 12/23/22 19:30 60 12/23/22 19:00 40 12/23/22 20:00 70 12/23/22 20:00 70 12/23/22 20:18 80 12/23/22 20:02 60 12/23/22 20:02 Resident Activity Tracking Resident Involvement: Resident Care Provided Care Provided: Adult Hospital Medicine (2) Aspiration pneumonia Aspiration pneumonia type: unspecified Laterality: right Lung location: unspecified part of lung Qualified Code(s): J69.0 - Pneumonitis due to inhalation of food and vomit
--- NOTE | 2022-12-24 07:12 | XRay Report ---
XR chest 1V portable CLINICAL HISTORY: Respiratory failure. COMPARISON STUDY: Chest CT December 22, 2022. Chest radiograph December 23, 2022. FINDINGS: Tip of endotracheal tube is 4.3 cm above the brayden. Tip of nasogastric tube is within the body of the stomach. There is no pneumothorax. Right internal jugular central line remains in place. Small right pleural effusion has slightly increased. Persistent bilateral airspace opacities are note d, greater within the right lung. There is no evidence for pulmonary edema. IMPRESSION: 1. Satisfactory positioning of lines and tubes. 2. Extensive bilateral airspace opacities, greater within the right lung. These are similar to prior study and favor multifocal pneumonia. 3. Small right pleural effusion, stable to slight increase in size since prior exam. No pneumothorax. ACT 112: Negative or not required by law. Electronically signed by: Valdo Peterson M.D. 12/24/2022 7:10 AM
[2022-12-24] MEDS: VASOPRESSIN 20 UNITS in 0.9 % SODIUM CHLORIDE 100 ML IV SCH (07:13)
[2022-12-24] MEDS: PANTOprazole 40 MG in SYRINGE 0 ML IV SCH ×2 (07:26→19:54)
[2022-12-24] MEDS: cefTRIAXone SODIUM 2,000 MG in DEXTROSE 5% 50 ML IV SCH (07:26)
[2022-12-24] MEDS: HEPARIN SOD 5,000 UNIT/0.5 ML VIAL SQ SCH ×2 (07:26→19:54)
[2022-12-24] MEDS: fentaNYL citrate 2,500 MCG/250 ML BAG IV SCH ×2 (07:26→22:03)
--- NOTE | 2022-12-24 07:45 | Critical Care Progress Note ---
Date of Service December 24, 2022 Assessment & Plan (1) Septic shock: (2) Hematemesis: (3) Acute respiratory failure with hypoxia: (4) Bacteremia due to Gram-positive bacteria: (5) Renal failure, acute: (6) Anemia: (7) Lactic acid acidosis: Plan Impression: 22-year-old male with no significant past medical history presents to the ICU with acute hypoxic respiratory failure and septic shock from pneumonia. Now requiring BiPAP and vasopressor support 24 Hour events: Patient intubated. Bronchoscopy performed with sampling of the lower respiratory tree. Significant improvement over the last 24 hours regarding his oxygenation index. Remains in shock state but lactate is clearing. Urine output improved Recommendations: Neuro -currently sedated with propofol, fentanyl and Versed. Continue sedation. When sedation is lightened, the patient becomes agitated and dyssynchronous with the ventilator. Blood pressure too labile to consider Precedex currently.x Cardiac -severe sepsis with septic shock secondary to gram-positive cocci bacteremia from a lung source. Continue norepinephrine and vasopressin. Currently weaning pressors. Echo with depressed ejection fraction yesterday likely secondary to sepsis. Appreciate cardiology assistance. Continue supportive care Respiratory -severe hypoxemic respiratory failure due to multifocal pneumonia. Currently intubated mechanical ventilated. Oxygenation index significantly improved. Plateau pressures in the mid teens. Continue mechanical ventilation today until pressor requirements improve. Patient does have evidence of a small right-sided pleural effusion. We will pursue diagnostic therapeutic thoracentesis to evaluate for potential parapneumonic effusion GI - Hematemesisno evidence of recurrence. Initiate bowel regiment and start trophic tube feeds RENAL/LYTES -acute renal failure resolved. Continue electrolyte replacement protocol. Follow urine output -Charles catheter in place for adequate tracking of intake and output ENDO - glycemic control per protocol. Random cortisol was appropriately elevated. HEME -stable anemia. Mild thrombocytopenia today likely secondary to sepsis. No evidence of bleeding. Continue to follow ID -Gram-positive cocci bacteremia, final ID pending. Surveillance blood cultures today. Continue Rocephin doxycycline day #3 LINES/IV ACCESS - Right internal jugular line CVC, peripheral IVs, Charles catheter, endotracheal tube, left radial arterial line DVT PROPHYLAXIS - Subcu heparin I have personally spent 55 minutes of critical care time in the direct management of this patient. This is a life/limb threatening event. This includes time spent evaluating patient, direct bedside care, chart review, placing orders, interpretation of diagnostic studies, discussion with consultants, patient, and family members, as well as other required patient management activities. This time is exclusive of all separately billable procedures, and teaching time and separate from and in addition to any other critical care service time. Discussed with bedside critical care nurse as well as family at bedside Admission and Anticipated Discharge Date Admission Date: December 22, 2022 Subjective Intubated and sedated Review of Systems Review of Systems: Unobtainable due to endotracheal tube Physical Exam Constitutional: WD/WN, vitals as above + mechanically ventilated Neck: trachea midline, no thyromegaly Respiratory: no labored breathing, no cough and not tachypneic Auscultation: + rales and + bronchovesicular breath sounds Cardiovascular: RRR, no murmur, no edema Gastrointestinal (Abdomen): normal bowel sounds, soft, nontender, no hepatosplenomegaly Musculoskeletal: Extremities: extremities normal to inspection Skin: no rashes, warm and dry Neurologic: Nonfocal exam Lymphatic: no cervical lymphadenopathy Results & Data Results & Data Vital Signs (Past 12 Hours) Vital Signs Temp Pulse Resp BP Pulse Ox Pulse Ox O2 Del Method 12/24/22 06:00 99 H 20 102/54 L 95 Mechanical Vent 12/24/22 05:30 102 H 20 94 Mechanical Vent 12/24/22 05:00 105 H 20 101/51 L 93 Mechanical Vent 12/24/22 04:30 111 H 20 92 Mechanical Vent 12/24/22 04:00 37.9 C H 103 H 20 104/61 95 Mechanical Vent 12/24/22 03:30 98 H 24 93 Mechanical Vent 12/24/22 04:00 12/24/22 03:40 101 H 23 96 12/24/22 03:00 98 H 24 98/55 L 93 Mechanical Vent 12/24/22 02:30 98 H 24 92 Mechanical Vent 12/24/22 02:00 96 H 24 101/58 L 96 Mechanical Vent 12/24/22 01:30 95 H 24 96 Mechanical Vent 12/24/22 01:00 95 H 24 99/56 L 98 Mechanical Vent 12/24/22 00:30 90 24 98 Mechanical Vent 12/24/22 00:00 36.3 C L 92 H 24 102/60 98 Mechanical Vent 12/23/22 23:30 93 H 24 98 Mechanical Vent 12/24/22 00:00 12/23/22 23:00 90 24 106/63 100 Mechanical Vent 12/23/22 22:30 97 H 24 96 Mechanical Vent 12/23/22 22:00 37 C 89 24 123/73 99 Mechanical Vent 12/23/22 22:50 94 H 24 97 12/23/22 22:42 100 12/23/22 21:30 94 H 24 98 Mechanical Vent 12/23/22 21:00 111 H 24 99/50 L 99 Mechanical Vent 12/23/22 20:30 120 H 24 118/57 L 96 Mechanical Vent 12/23/22 20:00 38.8 C H 128 H 24 102/63 91 Mechanical Vent 12/23/22 20:00 Mechanical Vent 12/23/22 20:00 12/23/22 20:18 126 H 24 94 12/23/22 20:02 132 H 33 H 90 12/23/22 20:02 Mechanical Vent O2 Del Method FiO2 12/24/22 06:00 30 12/24/22 05:30 30 12/24/22 05:00 30 12/24/22 04:30 30 12/24/22 04:00 30 12/24/22 03:30 30 12/24/22 04:00 30 12/24/22 03:40 30 12/24/22 03:00 30 12/24/22 02:30 30 12/24/22 02:00 30 12/24/22 01:30 30 12/24/22 01:00 30 12/24/22 00:30 30 12/24/22 00:00 30 12/23/22 23:30 30 12/24/22 00:00 30 12/23/22 23:00 40 12/23/22 22:30 40 12/23/22 22:00 40 12/23/22 22:50 40 12/23/22 22:42 Mechanical Vent 12/23/22 21:30 40 12/23/22 21:00 50 12/23/22 20:30 60 12/23/22 20:00 70 12/23/22 20:00 70 12/23/22 20:00 70 12/23/22 20:18 80 12/23/22 20:02 60 12/23/22 20:02 Critical Care Results & Data Vital Signs (Past 12 Hours) Vital Signs Temp Pulse Resp BP Pulse Ox Pulse Ox O2 Del Method 12/24/22 06:00 99 H 20 102/54 L 95 Mechanical Vent 12/24/22 05:30 102 H 20 94 Mechanical Vent 12/24/22 05:00 105 H 20 101/51 L 93 Mechanical Vent 12/24/22 04:30 111 H 20 92 Mechanical Vent 12/24/22 04:00 37.9 C H 103 H 20 104/61 95 Mechanical Vent 12/24/22 03:30 98 H 24 93 Mechanical Vent 12/24/22 04:00 12/24/22 03:40 101 H 23 96 12/24/22 03:00 98 H 24 98/55 L 93 Mechanical Vent 12/24/22 02:30 98 H 24 92 Mechanical Vent 12/24/22 02:00 96 H 24 101/58 L 96 Mechanical Vent 12/24/22 01:30 95 H 24 96 Mechanical Vent 12/24/22 01:00 95 H 24 99/56 L 98 Mechanical Vent 12/24/22 00:30 90 24 98 Mechanical Vent 12/24/22 00:00 36.3 C L 92 H 24 102/60 98 Mechanical Vent 12/23/22 23:30 93 H 24 98 Mechanical Vent 12/24/22 00:00 12/23/22 23:00 90 24 106/63 100 Mechanical Vent 12/23/22 22:30 97 H 24 96 Mechanical Vent 12/23/22 22:00 37 C 89 24 123/73 99 Mechanical Vent 12/23/22 22:50 94 H 24 97 12/23/22 22:42 100 12/23/22 21:30 94 H 24 98 Mechanical Vent 12/23/22 21:00 111 H 24 99/50 L 99 Mechanical Vent 12/23/22 20:30 120 H 24 118/57 L 96 Mechanical Vent 12/23/22 20:00 38.8 C H 128 H 24 102/63 91 Mechanical Vent 12/23/22 20:00 Mechanical Vent 12/23/22 20:00 12/23/22 20:18 126 H 24 94 12/23/22 20:02 132 H 33 H 90 12/23/22 20:02 Mechanical Vent O2 Del Method FiO2 12/24/22 06:00 30 12/24/22 05:30 30 12/24/22 05:00 30 12/24/22 04:30 30 12/24/22 04:00 30 12/24/22 03:30 30 12/24/22 04:00 30 12/24/22 03:40 30 12/24/22 03:00 30 12/24/22 02:30 30 12/24/22 02:00 30 12/24/22 01:30 30 12/24/22 01:00 30 12/24/22 00:30 30 12/24/22 00:00 30 12/23/22 23:30 30 12/24/22 00:00 30 12/23/22 23:00 40 12/23/22 22:30 40 12/23/22 22:00 40 12/23/22 22:50 40 12/23/22 22:42 Mechanical Vent 12/23/22 21:30 40 12/23/22 21:00 50 12/23/22 20:30 60 12/23/22 20:00 70 12/23/22 20:00 70 12/23/22 20:00 70 12/23/22 20:18 80 12/23/22 20:02 60 12/23/22 20:02 Lab & Micro Results (Past 24 Hours) RBC 3.57 M/uL (4.70-6.10) L 12/24/22 WBC 8.13 K/ul (4.8-10.8) 12/24/22 Hgb 10.7 g/dl (14.0-18.0) L 12/24/22 Hct 31.0 % (42.0-52.0) L 12/24/22 MCV 86.8 fL (80.0-100.0) 12/24/22 MCH 30.0 pg (25.0-34.0) 12/24/22 MCHC 34.5 g/dL (32.0-36.0) 12/24/22 RDW Standard Deviation 40.8 fL (36.4-46.3) 12/24/22 RDW Coefficient of Variation 12.8 % (11.5-14.5) 12/24/22 Plt Count 111 K/uL (130-400) L 12/24/22 MPV 9.9 fL (9.4-12.4) 12/24/22 ANC 7.72 K/uL (1.4-6.5) H 12/24/22 ALC 0.16 K/uL (1.2-3.4) L 12/24/22 Neutrophils % (Manual) 95 % 12/24/22 Lymphocytes % (Manual) 2 % 12/24/22 Monocytes % (Manual) 2 % 12/24/22 Eosinophils % (Manual) 2 % 12/24/22 Neutrophils # (Manual) 7.72 K/uL (1.40-6.50) H 12/24/22 Lymphocytes # (Manual) 0.16 K/uL (1.2-3.4) L 12/24/22 Monocytes # (Manual) 0.16 K/uL (0.11-0.59) 12/24/22 Eosinophils # (Manual) 0.16 K/uL (0-0.50) 12/24/22 Echinocytes 1+ 12/24/22 Dohle Bodies 1+ 12/24/22 Na 132 mmol/L (136-145) L 12/24/22 K 3.6 mmol/L (3.5-5.1) 12/24/22 Cl 101 mmol/L (98-107) 12/24/22 CO2 24 mmol/L (21-32) 12/24/22 Anion Gap 7 (3-11) 12/24/22 BUN 21 mg/dl (6-23) 12/24/22 Creatinine 0.77 mg/dl (0.6-1.4) 12/24/22 Estimated GFR ( Amer) 149.3 ml/min 12/24/22 Estimated GFR (Non-Af Amer) 128.8 ml/min 12/24/22 BUN/Creatinine Ratio 27.3 (10-20) H 12/24/22 Glu 109 mg/dl (70-99(Fasting)) H 12/24/22 Ca 7.8 mg/dl (8.6-10.3) L 12/24/22 Phosphorus Level 2.1 mg/dl (2.5-4.9) L 12/24/22 Total Bilirubin 0.6 mg/dl (0.2-1.0) 12/24/22 AST 111 U/L (13-39) H 12/24/22 ALT 19 U/L (7-52) 12/24/22 Alkaline Phosphatase 31 U/L (34-104) L 12/24/22 TP 4.9 gm/dl (6.0-8.3) L 12/24/22 Albumin 2.9 gm/dl (3.4-5.0) L 12/24/22 Globulin 2.0 gm/dl (2.5-4.0) L 12/24/22 Albumin/Globulin Ratio 1.5 (0.9-2) 12/24/22 Mg 2.3 mg/dl (1.7-2.4) 12/24/22 05:06 Calcium Level 7.8 mg/dl (8.6-10.3) L 12/24/22 05:06 Bob Test NA 12/24/22 03:40 Microbiology 12/22/22 20:11 Aerobic Blood Culture - Preliminary Blood No growth in Aerobic bottle after 24 hours. Anaerobic Blood Culture - Preliminary No growth in Anaerobic bottle after 24 hours. 12/23/22 10:00 Gram Stain - Final Bronch Wash, Trach Tree 12/22/22 21:25 Gram Stain - Final Sputum, Expectorated Sputum Culture - Preliminary Moderate normal lisa present, final report to follow. 12/22/22 18:51 Aerobic Blood Culture - Preliminary Blood Gram positive cocci in chains Anaerobic Blood Culture - Preliminary Gram positive cocci in chains Diagnostic Findings (Past 24 Hours) Chest X-Ray 12/23/22 09:46 XR chest 1V portable CLINICAL HISTORY: POST INTUBATION, OG TUBE PLACEMENT COMPARISON STUDY: Chest CT December 22, 2022 and chest radiograph performed earlier today. FINDINGS: Tip of endotracheal tube is 4.8 cm above the brayden. Tip of nasogastric tube is within the body of the stomach. There is no pneumothorax. Right internal jugular central line remains in place. A small right pleural effusion has increased in size since prior exam. Multifocal right lung consolidation has progressed. Left basilar consolidation has mildly progressed. Cardiomediastinal silhouette is stable. IMPRESSION: 1. Satisfactory positioning of lines and tubes. 2. Progression of extensive airspace opacities which favor multifocal pneumonia. Superimposed aspiration could appear similar. 3. Increase in size of a small right pleural effusion. No pneumothorax. ACT 112: Negative or not required by law. Electronically signed by: Valdo Peterson M.D. 12/23/2022 10:29 AM Chest X-Ray 12/24/22 07:00 XR chest 1V portable CLINICAL HISTORY: Respiratory failure. COMPARISON STUDY: Chest CT December 22, 2022. Chest radiograph December 23, 2022. FINDINGS: Tip of endotracheal tube is 4.3 cm above the brayden. Tip of nasogastric tube is within the body of the stomach. There is no pneumothorax. Right internal jugular central line remains in place. Small right pleural effusion has slightly increased. Persistent bilateral airspace opacities are noted, greater within the right lung. There is no evidence for pulmonary edema. IMPRESSION: 1. Satisfactory positioning of lines and tubes. 2. Extensive bilateral airspace opacities, greater within the right lung. These are similar to prior study and favor multifocal pneumonia. 3. Small right pleural effusion, stable to slight increase in size since prior exam. No pneumothorax. ACT 112: Negative or not required by law. Electronically signed by: Valdo Peterson M.D. 12/24/2022 7:10 AM I & O Totals 24 Hours 12/23/22 12/24/22 12/25/22 06:59 06:59 06:59 Intake Total 5680.530 / 5680.530 3820.632 / 3820.632 474.522 / 474.522 Output Total 277 / 277 2290 / 2290 Balance 5403.530 / 5403.530 1530.632 / 1530.632 474.522 / 474.522 Cumulative 12/22/22 17:26 thru 12/24/22 07:26 Intake Total 9975.684 Output Total 2567 Balance 7408.684 RT Ventilator Mngmt (Last Documented) Ventilator Ordered Settings Ventilator Support Mode Assist Control 12/24/22 04:00 Respiratory Rate 20 12/24/22 06:00 Ventilator Tidal Volume 480 12/24/22 04:00 Setting Minute Ventilation 10.6 12/24/22 03:40 Positive End Expiratory 5 12/24/22 04:00 Pressure Fraction of Inspired Oxygen 30 12/24/22 06:00 Peak Inspiratory Flow 43 12/23/22 15:23 Machine Comment Changes made per Leonid Cool 12/24/22 03:40 STORM CHASER CCM due to ABG results Ventilator - PT Measurements Respiratory Rate 20 Exhaled Tidal Volume 480 Minute Ventilation 10.6 Peak Inspiratory Airway 18 Pressure Plateau Pressure 15.4 Respiratory Cycle Inspiratory: 1:2.3 Expiratory Ratio Inspiratory Phase Time 0.9 End-Tidal CO2 36 Static Lung Compliance 46.15 Dynamic Lung Compliance 36.92 Normal Static Lung Compliance 48.00 Patient Measurements Comment per dr. moreno wean fi02 to 60% then start weaning peep if patient sats are good Coding Level of Care Code 27156 CRITICAL CARE 1ST 30-74M Diagnoses Septic shock A41.9; R65.21 Hematemesis K92.0 Acute respiratory failure with hypoxia J96.01 Bacteremia due to Gram-positive bacteria R78.81 Renal failure, acute N17.9 Anemia D64.9 Lactic acid acidosis E87.20
[2022-12-24] MEDS ORDERED: CALCIUM CHLORIDE 10% 1,000 MG in DEXTROSE 5% 50 ML IV ONE (08:15)
[2022-12-24] MEDS: ALBUT/IPRATROP 3MG/0.5MG NEB 3 ML VIAL NEB SCH ×4 (08:22→18:56)
--- NOTE | 2022-12-24 08:42 | Procedure Note ---
Procedure Note Date of Service December 24, 2022 Note Procedure: Diagnostic therapeutic ultrasound-guided catheter thoracentesis, right Heddler Tier: Dr. Stephen Feliz Indication: Pleural effusion Consent: Verbal consent obtained from patient's parents prior to the procedure Anesthesia: 8 mL's 1% lidocaine without epinephrine local. Procedure: Consent was verified and timeout performed. Appropriate imaging studies were reviewed prior to the procedure. Patient was placed in a upright position and limited thoracic ultrasound was performed of the right chest. A small to moderate-sized pleural effusion was identified with atelectatic lung. Site appropriate for thoracentesis was selected. The skin was prepped and draped in normal sterile fashion. Lidocaine was used for local analgesia. Fluid was aspirated via the finder needle. A small skin enrique was made with the scalpel and the catheter over the needle apparatus was advanced over the rib into the pleural space. Using the syringe one-way valve system, a total of 600 mL's of cloudy estuardo fluid was removed. Procedure was terminated due to inability to withdraw additional fluid. The catheter was removed and observed to be intact. A sterile dressing was applied. Post procedure chest x-ray was ordered. Post procedure thoracic ultrasound demonstrated lung sliding to be present with minimal residual pleural fluid Fluid was sent for cytology, cell count differential, Gram stain and culture, LDH, pH, glucose, and total protein. The patient tolerated the procedure well without obvious complication Coding CPT Codes Pulmonary/Thoracic - Pulmonary and Thoracic: 07415 Thoracentesis w imaging ([id number]) [facility] [place] (Charges) Pulmonary/Thoracic Procedure 1: Pulmonary and Thoracic: 46570 Thoracentesis w imaging
--- NOTE | 2022-12-24 09:10 | XRay Report ---
XR chest 1V portable CLINICAL HISTORY: S/P Thoracentesis COMPARISON STUDY: Chest radiograph performed earlier today. FINDINGS: Tip of endotracheal tube is 4.1 cm above the brayden. Tip of nasogastric tube is within the body of the stomach. Right internal jugular central line remains in place. Right pleural effusion has significantly decreased in size since prior exam. There is no pneumothorax. Bilateral airspace opaci ties persist. Right basilar opacity is increased. Cardiomediastinal silhouette is stable. IMPRESSION: 1. No pneumothorax following right thoracentesis. Significant decrease in size of the right pleural e ffusion. 2. Satisfactory positioning of lines and tubes. 3. Persistent airspace opacities suggestive of multifocal pneumonia. Increase in left basilar opacity . ACT 112: Negative or not required by law. Electronically signed by: Valdo Peterson M.D. 12/24/2022 9:08 AM
[2022-12-24] MEDS: DOXYCYCLINE HYCLATE 100 MG in DEXTROSE 5% 100 ML IV SCH ×2 (09:53→21:40)
[2022-12-24 10:31] LABS: Appearance Pleural Fluid Cloudy; Color Pleural Fluid Amber; Lymphocytes, Fluid 3 %; Mono,Macrophage,Mesothelial 19 %; Neutrophils, Fluid 78 %; RBC Pleural Fluid Auto 16000 /uL; Source Pleural Fluid Right Lung; WBC Pleural Fluid Auto 17298 /uL
[2022-12-24] MEDS: SENNOSIDES 8.8 MG/5 ML UDC PO SCH (10:46)
[2022-12-24] MEDS: LACTULOSE SYRUP 20 GM/30 ML UDC PO SCH (10:46)
[2022-12-24] MEDS ORDERED: PEPTAMEN INTENSE VHP 1.0 CAL 1,000 ML BAG GT SCH (11:00)
--- NOTE | 2022-12-24 11:30 | XCELERA ---
[id number]
[2022-12-24] MEDS: TUBE FEEDING WATER FLUSH GT SCH ×4 (11:49→22:03)
--- NOTE | 2022-12-24 14:30 | Cardiology Progress Note ---
Date of Service December 24, 2022 Assessment & Plan (1) Cardiomyopathy: (2) Septic shock: (3) Bacteremia due to Gram-positive bacteria: (4) Acute respiratory failure with hypoxia: Plan ASSESSMENT/PLAN: 1. Cardiomyopathy: Cardiomyopathy likely due to sepsis/acute illness. Limited echo today shows improvement in biventricular systolic function. This will likely improve with time. Repeat limited echo later this hospital stay. If LV systolic function remains reduced after recovered from septic shock, would consider appropriate medical therapy. No specific medical therapy at this time as he is requiring pressors. Would try to maintain even or negative net fluid balance today as hemodynamics allow with his sepsis. 2. Septic shock: As per critical care team. On antibiotic therapy. 1 of 2 blood cultures from 12/22/2022 positive. Receiving treatment for pneumonia. Pre ssor support has been reduced. 3. Bacteremia: 1 of 2 blood cultures positive from 12/22/2022. Repeat cultures pending. On antibiotic therapy as per critical care team. 4. Acute respiratory failure with hypoxia: Remains intubated on mechanical ventilation. As per critical care team. Underwent thoracentesis on 12/24/2022. 5. Disposition: Cardiology will continue to follow. Dr. Newton will resume his cardiology care tomorrow. Patient care communicated with Dr. Feliz of the critical care team. Patient's parents were updated at the bedside regarding echo findings. Care discussed with nursing staff. Admission and Anticipated Discharge Date Admission Date: December 22, 2022 Subjective Patient seen earlier this afternoon. He was intubated and sedated. He opened eyes during the exam. His mother and father were present at the bedside. Nursing staff reports that pressors have been reduced. He underwent thoracentesis today. No known cardiac history or family history of sudden cardiac or cardiomyopathy. Prior to acute illness, he was quite active and participated in gymnastics at [employer] (club). Unable to obtain review of systems due to ventilated and sedated state. Physical Exam Physical Exam: Gen.: No acute distress. On mechanical ventilator. Sedated. Neck: No appreciable JVD. Cardiac: PMI was nondisplaced. No ventricular heave. Regular and tachycardic. Normal S1-S2. No murmurs, rubs, or gallops. Pulmonary: Clear to auscultation bilaterally without wheezes, rales, or rhonchi. (anterior auscultation) Abdomen: Soft, nontender, nondistended, with hypoactive bowel sounds. No bruits noted. Extremities: 2+ right radial pulse. Left radial arterial line. 2+ dorsalis pedis pulses bilaterally. Trace upper and lower extremity edema. No cyanosis. No Osler nodes, [place] lesions, or splinter hemorrhages. Results & Data Vital Signs (Past 12 Hours) Vital Signs Temp Pulse Resp BP Pulse Ox O2 Del Method FiO2 12/24/22 11:45 106/53 L 12/24/22 11:45 106 H 20 99 12/24/22 11:30 101 H 20 98 12/24/22 11:30 102/52 L 12/24/22 11:15 105/55 L 12/24/22 11:15 102 H 20 100 12/24/22 11:00 100 H 20 99 12/24/22 11:00 115/60 12/24/22 10:45 116/59 L 12/24/22 10:45 102 H 20 99 12/24/22 10:30 102 H 20 98 12/24/22 10:30 106/59 L 12/24/22 10:15 103 H 20 97 12/24/22 10:15 107/54 L 12/24/22 10:00 105 H 20 96 12/24/22 10:00 97/44 L 12/24/22 09:45 109 H 20 94 12/24/22 09:45 99/49 L 12/24/22 09:30 108 H 20 93 12/24/22 09:30 94/48 L 12/24/22 09:15 102/50 L 12/24/22 09:15 110 H 20 93 12/24/22 11:44 40 12/24/22 11:44 114 H 115/45 L 12/24/22 09:00 38.3 C H 114 H 20 93 12/24/22 09:00 125/55 L 12/24/22 08:45 109 H 20 93 12/24/22 08:45 142/65 H 12/24/22 08:30 104 H 21 100 12/24/22 08:30 144/72 H 12/24/22 08:15 103 H 17 99 12/24/22 08:15 115/54 L 12/24/22 08:00 93 H 20 98 12/24/22 08:00 105/61 12/24/22 07:45 93 H 20 98 12/24/22 07:45 108/57 L 12/24/22 07:30 95 H 20 98 12/24/22 07:30 103/58 L 12/24/22 07:15 95 H 20 98 12/24/22 07:15 105/58 L 12/24/22 07:00 38.1 C H 97 H 20 97 12/24/22 07:00 105/57 L 12/24/22 06:49 109/59 L 12/24/22 06:49 98 H 20 97 12/24/22 06:40 101 H 20 96 12/24/22 09:13 Mechanical Vent 40 12/24/22 08:00 108 H 12/24/22 08:00 40 12/24/22 08:00 108 H 132/38 L 12/24/22 08:43 108 H 20 100 100 12/24/22 06:00 99 H 20 102/54 L 95 Mechanical Vent 30 12/24/22 05:30 102 H 20 94 Mechanical Vent 30 12/24/22 05:00 105 H 20 101/51 L 93 Mechanical Vent 30 12/24/22 04:30 111 H 20 92 Mechanical Vent 30 12/24/22 04:00 37.9 C H 103 H 20 104/61 95 Mechanical Vent 30 12/24/22 03:30 98 H 24 93 Mechanical Vent 30 12/24/22 04:00 30 12/24/22 03:40 101 H 23 96 30 12/24/22 03:00 98 H 24 98/55 L 93 Mechanical Vent 30 12/24/22 02:30 98 H 24 92 Mechanical Vent 30 Intake & Output 12/22/22 12/23/22 12/24/22 12/25/22 06:59 06:59 06:59 06:59 Intake Total 5680.530 / 5680.530 3820.632 / 3820.632 1614.642 / 1614.642 Output Total 277 / 277 2290 / 2290 510 / 510 Balance 5403.530 / 5403.530 1530.632 / 2527.834 9651.642 / 1104.642 Weight 184 lb 1.376 oz 192 lb 0.362 oz 192 lb 0.362 oz Laboratory Results Laboratory Results - last 24 hr 12/23/22 12/23/22 12/23/22 00:20 18:03 18:03 WBC RBC Hgb POC Hgb 10.2 L Hct POC Hct 30 L MCV MCH MCHC RDW Std Deviation RDW Coeff of Cecilia Plt Count MPV Neutrophils % (Manual) Lymphocytes % (Manual) Monocytes % (Manual) Eosinophils % (Manual) Other Cells % Neutrophils # (Manual) Total Absolute Neuts Lymphocytes # (Manual) Total Abs Lymphocytes Monocytes # (Manual) Eosinophils # (Manual) Other Cells # Dohle Bodies Echinocytes Sample Site Art Line POC pH 7.41 POC pCO2 35 POC pO2 63 L POC HCO3 22 POC Total CO2 23 L POC Base Excess -3.0 ABG pH (Temp Correct) 7.380 ABG pCO2 (Temp Corrct 38 POC ABG pO2 at Pt Temp 72 POC ABG O2 Sat 92.0 Bob Test NA O2 Delivery Device Ventilator POC O2 Rate 24 POC FiO2 40 Tidal Volume 480 PEEP 5 POC Sodium 134 L Sodium 133 L POC Potassium 3.6 Potassium 3.9 Chloride 103 Carbon Dioxide 24 Anion Gap 6 BUN 22 Creatinine 1.01 D Est Cr Clr Drug Dosing 114.7 Est GFR ( Amer) 121.8 Est GFR (Non-Af Amer) 105.1 BUN/Creatinine Ratio 21.8 H Glucose 139 H POC Glucose POC Glucose (other) Lactate Calcium 7.4 L Phosphorus 2.8 Magnesium 2.1 Total Bilirubin AST ALT Alkaline Phosphatase Total Protein Albumin Globulin Albumin/Globulin Ratio Procalcitonin Fluid Neutrophils % Fluid Lymphocytes % Fluid Meso/Macro/[place] % Fluid Comment Pleural Fluid Source Pleural Color Pleural Appearance Pleural WBC (Auto) Pleural RBC (Auto) 12/23/22 12/23/22 12/24/22 18:08 23:16 03:40 WBC RBC Hgb POC Hgb 10.2 L Hct POC Hct 30 L MCV MCH MCHC RDW Std Deviation RDW Coeff of Cecilia Plt Count MPV Neutrophils % (Manual) Lymphocytes % (Manual) Monocytes % (Manual) Eosinophils % (Manual) Other Cells % Neutrophils # (Manual) Total Absolute Neuts Lymphocytes # (Manual) Total Abs Lymphocytes Monocytes # (Manual) Eosinophils # (Manual) Other Cells # Dohle Bodies Echinocytes Sample Site Art Line POC pH 7.45 POC pCO2 31 L POC pO2 68 L POC HCO3 22 POC Total CO2 23 L POC Base Excess -2.0 ABG pH (Temp Correct) 7.446 ABG pCO2 (Temp Corrct 32 L POC ABG pO2 at Pt Temp 71 POC ABG O2 Sat 95.0 Bob Test NA O2 Delivery Device Ventilator POC O2 Rate 24 POC FiO2 30 Tidal Volume 480 PEEP 5 POC Sodium 131 L Sodium POC Potassium 3.4 Potassium Chloride Carbon Dioxide Anion Gap BUN Creatinine Est Cr Clr Drug Dosing Est GFR ( Amer) Est GFR (Non-Af Amer) BUN/Creatinine Ratio Glucose POC Glucose POC Glucose (other) 133 H 131 H Lactate Calcium Phosphorus Magnesium Total Bilirubin AST ALT Alkaline Phosphatase Total Protein Albumin Globulin Albumin/Globulin Ratio Procalcitonin Fluid Neutrophils % Fluid Lymphocytes % Fluid [place]/Macro/[place] % Fluid Comment Pleural Fluid Source Pleural Color Pleural Appearance Pleural WBC (Auto) Pleural RBC (Auto) 12/24/22 12/24/22 12/24/22 05:06 05:06 05:06 WBC 8.13 RBC 3.57 L Hgb 10.7 L POC Hgb Hct 31.0 L POC Hct MCV 86.8 MCH 30.0 MCHC 34.5 RDW Std Deviation 40.8 RDW Coeff of Cecilia 12.8 Plt Count 111 L MPV 9.9 Neutrophils % (Manual) 95 Lymphocytes % (Manual) 2 Monocytes % (Manual) 2 Eosinophils % (Manual) 2 Other Cells % Neutrophils # (Manual) 7.72 H Total Absolute Neuts 7.72 H Lymphocytes # (Manual) 0.16 L Total Abs Lymphocytes 0.16 L Monocytes # (Manual) 0.16 Eosinophils # (Manual) 0.16 Other Cells # Dohle Bodies 1+ Echinocytes 1+ Sample Site POC pH POC pCO2 POC pO2 POC HCO3 POC Total CO2 POC Base Excess ABG pH (Temp Correct) ABG pCO2 (Temp Corrct POC ABG pO2 at Pt Temp POC ABG O2 Sat Bob Test O2 Delivery Device POC O2 Rate POC FiO2 Tidal Volume PEEP POC Sodium Sodium 132 L POC Potassium Potassium 3.6 Chloride 101 Carbon Dioxide 24 Anion Gap 7 BUN 21 Creatinine 0.77 Est Cr Clr Drug Dosing 150.5 Est GFR ( Amer) 149.3 Est GFR (Non-Af Amer) 128.8 BUN/Creatinine Ratio 27.3 H Glucose 109 H POC Glucose POC Glucose (other) Lactate 2.6 H* Calcium 7.8 L Phosphorus 2.1 L Magnesium 2.3 Total Bilirubin 0.6 AST 111 H ALT 19 Alkaline Phosphatase 31 L Total Protein 4.9 L Albumin 2.9 L Globulin 2.0 L Albumin/Globulin Ratio 1.5 Procalcitonin Fluid Neutrophils % Fluid Lymphocytes % Fluid [place]/Mac[place] % Fluid Comment Pleural Fluid Source Pleural Color Pleural Appearance Pleural WBC (Auto) Pleural RBC (Auto) 12/24/22 12/24/22 12/24/22 05:08 08:20 08:45 WBC RBC Hgb POC Hgb Hct POC Hct MCV MCH MCHC RDW Std Deviation RDW Coeff of Cecilia Plt Count MPV Neutrophils % (Manual) Lymphocytes % (Manual) Monocytes % (Manual) Eosinophils % (Manual) Other Cells % Neutrophils # (Manual) Total Absolute Neuts Lymphocytes # (Manual) Total Abs Lymphocytes Monocytes # (Manual) Eosinophils # (Manual) Other Cells # Dohle Bodies Echinocytes Sample Site POC pH POC pCO2 POC pO2 POC HCO3 POC Total CO2 POC Base Excess ABG pH (Temp Correct) ABG pCO2 (Temp Corrct POC ABG pO2 at Pt Temp POC ABG O2 Sat Bob Test O2 Delivery Device POC O2 Rate POC FiO2 Tidal Volume PEEP POC Sodium Sodium POC Potassium Potassium Chloride Carbon Dioxide Anion Gap BUN Creatinine Est Cr Clr Drug Dosing Est GFR ( Amer) Est GFR (Non-Af Amer) BUN/Creatinine Ratio Glucose POC Glucose 102 H POC Glucose (other) Lactate Calcium Phosphorus Magnesium Total Bilirubin AST ALT Alkaline Phosphatase Total Protein Albumin Globulin Albumin/Globulin Ratio Procalcitonin 78.29 H Fluid Neutrophils % 78 Fluid Lymphocytes % 3 Fluid [place]/Mac[place] % 19 Fluid Comment Pleural Fluid Source Right Lung Pleural Color [place] Pleural Appearance Cloudy Pleural WBC (Auto) 99615 Pleural RBC (Auto) 54179 12/24/22 12:08 WBC RBC Hgb POC Hgb Hct POC Hct MCV MCH MCHC RDW Std Deviation RDW Coeff of Cecilia Plt Count MPV Neutrophils % (Manual) Lymphocytes % (Manual) Monocytes % (Manual) Eosinophils % (Manual) Other Cells % Neutrophils # (Manual) Total Absolute Neuts Lymphocytes # (Manual) Total Abs Lymphocytes Monocytes # (Manual) Eosinophils # (Manual) Other Cells # Dohle Bodies Echinocytes Sample Site POC pH POC pCO2 POC pO2 POC HCO3 POC Total CO2 POC Base Excess ABG pH (Temp Correct) ABG pCO2 (Temp Corrct POC ABG pO2 at Pt Temp POC ABG O2 Sat Bob Test O2 Delivery Device POC O2 Rate POC FiO2 Tidal Volume PEEP POC Sodium Sodium POC Potassium Potassium Chloride Carbon Dioxide Anion Gap BUN Creatinine Est Cr Clr Drug Dosing Est GFR ( Amer) Est GFR (Non-Af Amer) BUN/Creatinine Ratio Glucose POC Glucose POC Glucose (other) 116 H Lactate Calcium Phosphorus Magnesium Total Bilirubin AST ALT Alkaline Phosphatase Total Protein Albumin Globulin Albumin/Globulin Ratio Procalcitonin Fluid Neutrophils % Fluid Lymphocytes % Fluid Meso/Macro/[place] % Fluid Comment Pleural Fluid Source Pleural Color Pleural Appearance Pleural WBC (Auto) Pleural RBC (Auto) Diagnostic Findings On 12/24/2022, chart, labs, telemetry, chest x-ray, echo, ECG, blood cultures reviewed. Chest x-ray 12/24/2022 at 0832 personally reviewed: Right sided infiltrate. Radiology reports right basilar opacity increased in size. Bilateral airspace opacities persist. Significantly reduced right pleural effusion following thoracentesis. CTA chest 12/22/2022: Right upper lobe airspace consolidation per radiology. Telemetry personally reviewed: Sinus rhythm. No arrhythmia. Limited echo 12/24/2022: LVEF 40% with global hypokinesis. Moderately reduced RV systolic function. Compared to 12/23/2022 study, biventricular systolic function has improved. Critical care note from 12/24/2022 reviewed. Labs 12/24/2022 demonstrated mild anemia, thrombocytopenia, improved renal function. Blood cultures from 12/22/2022: 1 of 2 cultures positive for gram-positive cocci in chains. Sensitivities are pending. Medications Administered Current Inpatient Medications Acetaminophen (Acetaminophen Susp 325 Mg/10.15 Ml Udc) 650 mg PO Q4H PRN PRN Reason: Pain (1, 2, 3) or fever Stop: 01/22/23 11:35 Last Admin: 12/24/22 10:48 Dose: 650 mg Albuterol (Albut/Ipratrop 3mg/0.5mg Neb 3 Ml Vial) 3 ml NEB QIDR JANE; Protocol Stop: 01/22/23 06:59 Last Admin: 12/24/22 11:42 Dose: 3 ml Dextrose (Dextrose 50% 50 Ml Syringe) 25 - 50 ml IV UD PRN; Protocol PRN Reason: Hypoglycemia Protocol Stop: 01/22/23 05:30 Fentanyl Citrate (Fentanyl Citrate Pf 100 Mcg/2 Ml Vial) 25 mcg IV Q3H PRN PRN Reason: Pain (4+) Stop: 01/06/23 00:04 Last Admin: 12/23/22 05:16 Dose: 25 mcg Fentanyl Citrate (Fentanyl Bolus From Bag) 50 mcg IV Q60M PRN PRN Reason: Pain or Agitation Stop: 01/06/23 09:32 Glucagon (Glucagon For Inj 1 Mg Vial) 1 mg SQ UD PRN; Protocol PRN Reason: Hypoglycemia Protocol Stop: 01/22/23 05:30 Glucose (Glucose 40% Gel 15 Gm Tube) 15 - 30 gm PO UD PRN; Protocol PRN Reason: Hypoglycemia Protocol Stop: 01/22/23 05:30 Glucose (Glucose 10 Tab/Tube) 4 - 8 tab PO UD PRN; Protocol PRN Reason: Hypoglycemia Treatment Stop: 01/22/23 05:30 Heparin Sodium (Porcine) (Heparin Sod 5,000 Unit/0.5 Ml Vial) 5,000 units SQ Q12 JANE Stop: 01/22/23 08:59 Last Admin: 12/24/22 07:26 Dose: 5,000 units Norepinephrine Bitartrate (Levophed/D5w) 4 mg in 250 mls @ 78.281 mls/hr IV .Q3H12M JANE; Protocol Stop: 01/21/23 20:59 Last Titration: 12/24/22 14:10 Dose: 0.06 mcg/kg/min, 18.8 mls/hr Vasopressin 20 units/ Sodium (Chloride) 101 mls @ 6.06 mls/hr IV .[id number] [facility] Stop: 01/21/23 23:44 Last Infusion: 12/24/22 12:36 Dose: 0.02 unit/min, 6.1 mls/hr Parenteral Electrolytes (Plasma-Lyte A Ph 7.4) 1,000 mls @ 30 mls/hr IV .Q24H [facility] Stop: 01/21/23 23:29 Last Admin: 12/24/22 01:50 Dose: 30 mls/hr Ceftriaxone Sodium 2,000 mg/ (Dextrose) 70 mls @ 100 mls/hr IV Q24H [facility]; Protocol Stop: 01/06/23 08:59 Last Infusion: 12/24/22 09:02 Dose: Infused Fentanyl Citrate (Fentanyl Citrate) 2,500 mcg in 250 mls @ 5 mls/hr IV .Q50H [facility]; Protocol Stop: 01/06/23 09:44 Last Titration: 12/24/22 09:26 Dose: 50 mcg/hr, 5 mls/hr Midazolam HCl (Versed) 125 mg in 250 mls @ 4 mls/hr IV .[id number] [facility]; Protocol Stop: 01/22/23 09:44 Last Titration: 12/24/22 09:26 Dose: 2 mg/hr, 4 mls/hr Propofol (Diprivan) 1,000 mg in 100 mls @ 15.03 mls/hr IV .Q6H40M [facility]; Protocol Stop: 12/26/22 09:44 Last Admin: 12/24/22 10:46 Dose: 30 mcg/kg/min, 15 mls/hr Doxycycline Hyclate 100 mg/ (Dextrose) 110 mls @ 55 mls/hr IV Q12H [facility] Stop: 12/30/22 09:59 Last Infusion: 12/24/22 11:48 Dose: Infused Pantoprazole Sodium 40 mg/ (Syringe) 10 mls @ 5 mls/min IV BID@0900,2100 JANE Stop: 01/22/23 20:59 Last Admin: 12/24/22 07:26 Dose: 5 mls/min Insulin Aspart (Insulin Aspart Per Unit Charge) 0 units SC Q6 JANE Stop: 01/22/23 05:59 Last Admin: 12/24/22 12:14 Dose: Not Given Lactulose (Lactulose Syrup 20 Gm/30 Ml Udc) 20 gm PO DAILY [facility] Stop: 01/23/23 10:44 Last Admin: 12/24/22 10:46 Dose: 20 gm Midazolam HCl (Midazolam Bolus From Bag) 2 mg IV Q60M PRN PRN Reason: Sedation Stop: 01/22/23 09:32 Miscellaneous (Carbohydrates For Hypoglycemia ) 15 - 30 gm PO UD PRN PRN Reason: Hypoglycemia Protocol Stop: 01/22/23 05:30 Nutritional Formula (Peptamen Intense Vhp 1.0 [place] 1,000 Ml Bag) 0 ml GT .See Protocol [facility]; Protocol Stop: 01/23/23 10:59 Last Admin: 12/24/22 11:49 Dose: 1,000 ml Ondansetron HCl (Ondansetron Inj 2 Mg/Ml 2 Ml Vial) 4 mg IV Q4H PRN PRN Reason: Nausea Stop: 01/21/23 20:30 Last Admin: 12/23/22 06:19 Dose: 4 mg Propofol (Propofol Bolus From Bag) 20 mg IV Q5M PRN PRN Reason: Sedation Stop: 12/26/22 09:35 Sennosides (Sennosides 8.8 Mg/5 Ml Udc) 8.8 mg PO QAM [facility] Stop: 01/23/23 10:34 Last Admin: 12/24/22 10:46 Dose: 8.8 mg Sterile Water (Tube Feeding Water Flush) 20 ml GT Q4H [facility] Stop: 01/23/23 10:59 Last Admin: 12/24/22 11:49 Dose: 20 ml PG Care Time/CCT Total # of Minutes Spent Total Time Spent with Patient: Total time spent is greater than 50% in coordination of care (as documented) at patient's floor/unit and/or counseling patient: Coding Level of Care Code 98102 SUB INP/OBS CARE 3/50MIN Diagnoses Cardiomyopathy I42.9 Septic shock A41.9; R65.21 Bacteremia due to Gram-positive bacteria R78.81 Acute respiratory failure with hypoxia J96.01
[2022-12-24 19:24] LABS: Anion Gap 7 (3-11); Calcium 8.3 mg/dl (8.6-10.3); Carbon Dioxide 26 mmol/L (21-32); Chloride 103 mmol/L (98-107); Magnesium 1.8 mg/dl (1.7-2.4); Potassium 3.8 mmol/L (3.5-5.1); Sodium 136 mmol/L (136-145)
[2022-12-24 19:29] LABS: BUN Creatinine Ratio 23.4 (10-20); Blood Urea Nitrogen 15 mg/dl (6-23); Creatinine Clr Calc Pharmacy 197.8 ml/min; Est GFR (African American) > 150.0 ml/min; Glucose 101 mg/dl (70-99(Fasting)); Phosphorus 2.1 mg/dl (2.5-4.9)
[2022-12-24] MEDS: MAGNESIUM SULFATE / D5W 1 GM/100 ML BAG IV SCH ×2 (19:54→21:40)
[2022-12-24] MEDS ORDERED: POTASSIUM PHOSPHATE 15 MMOL in SODIUM CHLORIDE 0.9% 250 ML IV ONE (20:00)
[2022-12-24] MEDS: MIDAZOLAM HCL 125 MG/250 ML BAG IV SCH (20:33)
[2022-12-25] MEDS: ACETAMINOPHEN SUSP 325 MG/10.15 ML UDC PO PRN (02:11)
[2022-12-25] MEDS: TUBE FEEDING WATER FLUSH GT SCH ×2 (02:11→06:30)
[2022-12-25] MEDS: PLASMA-LYTE A 1,000 ML IV SCH ×2 (04:21→11:18)
[2022-12-25 04:28] LABS: iSTAT Arterial Blood Gas HCO3 28 meg/L (19-24); iSTAT Arterial Blood Gas pCO2 43 mmHg (35-46); iSTAT Arterial Blood Gas pH 7.42 (7.35-7.45); iSTAT Arterial Blood Gas pO2 71 mmHg (80-95); iSTAT Carbon Dioxide 29 mmol/L (24-31); iSTAT FiO2 30 %; iSTAT Site Art Line
[2022-12-25] MEDS: propofoL 1,000 MG/100 ML VIAL IV SCH ×2 (04:31→08:52)
[2022-12-25 06:13] LABS: Hematocrit (blood only) 28.1 % (42.0-52.0); Hemoglobin 9.6 g/dl (14.0-18.0); Mean Corpuscular Hemoglobin 29.7 pg (25.0-34.0); Mean Corpuscular Hgb Conc 34.2 g/dL (32.0-36.0); Mean Platelet Volume 10.3 fL (9.4-12.4); Platelet Count 110 K/uL (130-400); RDW Coefficient of Variation 13.1 % (11.5-14.5); RDW Standard Deviation 41.5 fL (36.4-46.3); Red Blood Count 3.23 M/uL (4.70-6.10); White Blood Count 10.08 K/ul (4.8-10.8)
[2022-12-25 06:14] LABS: Anion Gap 5 (3-11); BUN Creatinine Ratio 13.6 (10-20); Blood Urea Nitrogen 9 mg/dl (6-23); Calcium 8.3 mg/dl (8.6-10.3); Carbon Dioxide 27 mmol/L (21-32); Chloride 110 mmol/L (98-107); Creatinine Clr Calc Pharmacy 175.6 ml/min; Est GFR (African American) > 150.0 ml/min; Est GFR (Non-African American) 137.2 ml/min; Glucose 99 mg/dl (70-99(Fasting)); Potassium 3.8 mmol/L (3.5-5.1); Sodium 142 mmol/L (136-145)
[2022-12-25 06:21] LABS: Alanine Aminotransferase 17 U/L (7-52); Albumin Globulin Ratio 1.2 (0.9-2); Albumin Level 2.8 gm/dl (3.4-5.0); Alkaline Phosphatase 71 U/L (34-104); Aspartate Aminotransferase 65 U/L (13-39); Bilirubin,Total 0.5 mg/dl (0.2-1.0); Globulin 2.3 gm/dl (2.5-4.0); Magnesium 1.9 mg/dl (1.7-2.4); Phosphorus 1.2 mg/dl (2.5-4.9); Total Protein 5.1 gm/dl (6.0-8.3)
[2022-12-25 06:24] LABS: Basophils # (auto) 0.08 K/uL (0-0.2); Basophils % (auto) 0.8 %; Eosinophils # (auto) 0.21 K/uL (0-0.50); Eosinophils % (auto) 2.1 %; Immature Granulocytes # (auto) 0.05 K/uL (0.01-0.20); Immature Granulocytes % (auto) 0.5 %; Lymphocytes # (auto) 0.43 K/uL (1.2-3.4); Lymphocytes % (auto) 4.3 %; Monocytes # (auto) 0.69 K/uL (0.11-0.59); Monocytes % (auto) 6.8 %; Neutrophils # (auto) 8.62 K/uL (1.40-6.50); Neutrophils % (auto) 85.5 %; Polychromasia 1+
[2022-12-25] MEDS: fentaNYL citrate 2,500 MCG/250 ML BAG IV SCH ×2 (06:28→08:04)
[2022-12-25] MEDS: INSULIN ASPART PER UNIT CHARGE SC SCH ×3 (06:29→17:54)
[2022-12-25] MEDS ORDERED: POTASSIUM PHOS 3 MMOL/1 ML INFUSION IV STA (06:51)
--- NOTE | 2022-12-25 06:51 | Hospitalist Progress Note ---
Date of Service December 25, 2022 Assessment & Plan (1) Acute respiratory failure with hypoxia: Plan: 22yo male with a history of nephrolithiasis (s/p laser extraction in 2020) and no other PMHx who presents with acute hypoxic respiratory failure and septic shock secondary to strep pyogenes pneumonia and bacteremia, requiring ICU care with mechanical ventilation and pressor support, extubated 12/25/22 AM. Acute hypoxic respiratory failure Secondary to multifocal pneumonia; group A Beta Strep bacteremia Extubated 12/25/22 AM. 90% on 4L nasal canula Septic shock, resolved to sepsis No longer requiring norepinephrine and vasopressin Continued fever of 38Cs Procal elev to 78 at admission Severe presentation for patient w/ no risk factors. Considered strep toxic shock syndrome. Multifocal pneumonia and group A strep bacteremia Started as RUL pneumonia (possible aspiration etiology) progressed to bilateral - possible aspiration events (ocean water 09/2022, etoh several days prior to admission) Blood (1/2 tube), bronch, and expectorated cultures with group A beta strep, follow. Biofire w/ strep pyogenes. Zosyn deescalated to Rocephin 2g q24h and doxycycline Small right parapneumonic effusion, s/p thoracentesis Acute cardiomyopathy Echo: severe global hypokinesis, EF 25-30%, IVC moderately dilated. 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 If worsens, can consider etiologies. Thrombocytopenia, mild Trend Hyponatremia, mild Trend Elevated liver enzymes, downtrending 2/2 sepsis Hematemesis Protonix IV BID LISA, resolved Autodiuresing 12/24 evening. 24 hr net neg 3L. Follow volume status. Net pos 3.4L this admission. FEN/GI: NPO. Plasma-Lyte 30mL/hr Code status: full DVT ppx: heparin sq 5000u q12h Dispo: ICU (2) Aspiration pneumonia: (3) Cardiomyopathy: (4) Septic shock: (5) Bacteremia due to Gram-positive bacteria: (6) Anemia: (7) Lactic acid acidosis: (8) Thrombocytopenia: Admission and Anticipated Discharge Date Admission Date: December 22, 2022 Supervising Physician Co-Signing Physician Notes I also saw the patient and confirmed sheth portions of the history and physical examination. I agree with the impression and plan as noted in the resident documentation. Upon our midmorning exam, patient lying semireclined in bed. He is recently extubated. He is awake, talkative, but still confused. His speech is mostly understandable (his voice is hoarse, with low volume), although confused. EXAM 136/23, 128, 21, 38.1, 90% on nasal cannula 6 L/min Respirations are non-labored, Lungs with scattered rhonchi at the bases. No wheezing. Heart regular rate and rhythm Extremities well perfused, no edema DATA Hemoglobin 9.6 Potassium 3.8 BUN 9 Creatinine 0.66 Chest x-ray dated 12/25/2022 shows persistent airspace opacities suggestive of a multifocal pneumonia. IMPRESSION AND PLAN Acute respiratory failure with hypoxia Septic shock Multifocal pneumonia, strep bacteremia Status postextubation earlier today, mild confusion not surprising given sedatives until this morning, seems to be improving by the hour. Hemodynamically stable without the use of pressors Follow-up echocardiogram shows improvement in left ventricular function, which is reassuring Mild transaminitis, not surprising in setting of sepsis, improving Patient under primary care of critical care team; medicine continues to follow pending eventual transfer to the floor Additional per resident documentation Subjective Patient extubated this morning at 8:30 AM (10 minutes prior to my exam). Pressors and sedation has been turned off. Patient is still groggy from the sedation. History limited. Parents at bedside and questions answered. 11:30 AM: Patient still w/ mild disorientation. Review of Systems Review of Systems: Unobtainable due to cognitive status Physical Exam Physical Exam: General: Extubated 10 minutes ago, still groggy. + rigors. HEENT: Atraumatic, normocephalic. Pulm: No obvious crackles anteriorly. Cardiac: Tachycardic rate, -mrg. Abdominal: Nontender, nondistended, soft. Results & Data Results & Data Vital Signs (Past 12 Hours) Vital Signs Temp Pulse Pulse Resp BP Pulse Ox Pulse Ox 12/25/22 06:30 83 20 98 12/25/22 06:00 37.4 C 88 20 103/56 L 97 12/25/22 05:30 89 20 96 12/25/22 05:00 93 H 20 110/58 L 96 12/25/22 04:30 97 H 20 96 12/25/22 04:10 102 H 20 96 12/25/22 04:00 38.3 C H 103 H 20 108/52 L 98 12/25/22 03:30 100 H 20 97 12/25/22 04:00 12/25/22 03:00 99 H 20 101/47 L 97 12/25/22 02:30 100 H 20 97 12/25/22 02:00 38.1 C H 99 H 20 99/45 L 98 12/25/22 01:30 99 H 20 98 12/25/22 01:00 101 H 20 99/46 L 98 12/25/22 00:30 99 H 20 97 12/25/22 00:00 37.8 C H 102 H 20 105/50 L 98 12/24/22 23:30 102 H 20 97 12/25/22 00:00 12/24/22 23:00 101 H 20 98 12/24/22 23:00 100 H 20 105/52 L 98 12/24/22 22:30 100 H 20 98 12/24/22 22:00 101 H 20 108/52 L 97 12/24/22 21:30 107 H 20 99 12/24/22 22:00 97 12/24/22 21:00 111 H 20 99/51 L 100 12/24/22 20:30 111 H 20 85/44 L 99 12/24/22 20:00 37.9 C H 118 H 20 87/44 L 99 12/24/22 19:30 125 H 20 94/48 L 93 12/24/22 19:00 109 H 20 93/43 L 97 12/24/22 20:00 12/24/22 20:00 12/24/22 19:08 112 H 20 96 12/24/22 18:56 109 H 20 100 O2 Del Method O2 Del Method FiO2 12/25/22 06:30 Mechanical Vent 30 12/25/22 06:00 Mechanical Vent 30 12/25/22 05:30 Mechanical Vent 30 12/25/22 05:00 Mechanical Vent 30 12/25/22 04:30 Mechanical Vent 30 12/25/22 04:10 30 12/25/22 04:00 Mechanical Vent 30 12/25/22 03:30 Mechanical Vent 30 12/25/22 04:00 30 12/25/22 03:00 Mechanical Vent 30 12/25/22 02:30 Mechanical Vent 30 12/25/22 02:00 Mechanical Vent 30 12/25/22 01:30 Mechanical Vent 30 12/25/22 01:00 Mechanical Vent 30 12/25/22 00:30 Mechanical Vent 30 12/25/22 00:00 Mechanical Vent 30 12/24/22 23:30 Mechanical Vent 30 12/25/22 00:00 30 12/24/22 23:00 30 12/24/22 23:00 Mechanical Vent 30 12/24/22 22:30 Mechanical Vent 30 12/24/22 22:00 Mechanical Vent 30 12/24/22 21:30 Mechanical Vent 40 12/24/22 22:00 Mechanical Vent 12/24/22 21:00 Mechanical Vent 40 12/24/22 20:30 Mechanical Vent 40 12/24/22 20:00 Mechanical Vent 40 12/24/22 19:30 Mechanical Vent 40 12/24/22 19:00 Mechanical Vent 40 12/24/22 20:00 Mechanical Vent 40 12/24/22 20:00 40 12/24/22 19:08 40 12/24/22 18:56 Mechanical Vent 40 Diagnostic Findings Chest X-Ray 12/25/22 07:00 XR chest 1V portable CLINICAL HISTORY: Respiratory failure. COMPARISON STUDY: Chest CT December 22, 2022 and chest radiograph December 24, 2022 at 8:49 AM. FINDINGS: Tip of endotracheal tube is 3.9 cm above the brayden. Tip of nasogastric tube is within the body of the stomach. Right internal jugular central line remains in place. No pneumothorax. Small right pleural effusion. Multifocal consolidation persists. Cardiomediastinal silhouette is stable. IMPRESSION: 1. Satisfactory positioning of lines and tubes. 2. Persistent airspace opacities suggestive of multifocal pneumonia. 3. No pneumothorax. ACT 112: Negative or not required by law. Electronically signed by: Valdo Peterson M.D. 12/25/2022 6:56 AM Resident Activity Tracking Resident Involvement: Resident Care Provided Care Provided: Adult Hospital Medicine (2) Aspiration pneumonia Aspiration pneumonia type: unspecified Laterality: right Lung location: unspecified part of lung Qualified Code(s): J69.0 - Pneumonitis due to inhalation of food and vomit
--- NOTE | 2022-12-25 06:57 | XRay Report ---
XR chest 1V portable CLINICAL HISTORY: Respiratory failure. COMPARISON STUDY: Chest CT December 22, 2022 and chest radiograph December 24, 2022 at 8:49 AM. FINDINGS: Tip of endotracheal tube is 3.9 cm above the brayden. Tip of nasogastric tube is within the body of the stomach. Right internal jugular central line remains in place. No pneumothorax. Small rig ht pleural effusion. Multifocal consolidation persists. Cardiomediastinal silhouette is stable. IMPRESSION: 1. Satisfactory positioning of lines and tubes. 2. Persistent airspace opacities suggestive of multifocal pneumonia. 3. No pneumothorax. ACT 112: Negative or not required by law. Electronically signed by: Valdo Peterson M.D. 12/25/2022 6:56 AM
[2022-12-25] MEDS ORDERED: POTASSIUM PHOSPHATE 15 MMOL in SODIUM CHLORIDE 0.9% 250 ML IV ONE (07:15)
[2022-12-25] MEDS: PANTOprazole 40 MG in SYRINGE 0 ML IV SCH ×2 (07:20→20:46)
[2022-12-25] MEDS: LACTULOSE SYRUP 20 GM/30 ML UDC PO SCH (07:21)
[2022-12-25] MEDS: SENNOSIDES 8.8 MG/5 ML UDC PO SCH (07:21)
[2022-12-25] MEDS: HEPARIN SOD 5,000 UNIT/0.5 ML VIAL SQ SCH ×2 (07:21→20:48)
[2022-12-25] MEDS: cefTRIAXone SODIUM 2,000 MG in DEXTROSE 5% 50 ML IV SCH (07:21)
[2022-12-25] MEDS: ALBUT/IPRATROP 3MG/0.5MG NEB 3 ML VIAL NEB SCH (07:49)
[2022-12-25 08:47] LABS: Codeine Urine NEGATIVE ng/mL (<50); Hydrocodone Urine NEGATIVE ng/mL (<50); Hydromor Urine NEGATIVE ng/mL (<50); Morphine Urine 1070 ng/mL (<50); Norhydrocodone Conf Ur NEGATIVE ng/mL (<50); Noroxycodone Urine NEGATIVE ng/mL (<50); Oxycodone Urine NEGATIVE ng/mL (<50); Oxymorph Urine NEGATIVE ng/mL (<50)
[2022-12-25] MEDS ORDERED: ACETAMINOPHEN 1,000 MG/100 ML VIAL IV STA (08:49)
--- NOTE | 2022-12-25 09:04 | Critical Care Progress Note ---
Date of Service December 25, 2022 Assessment & Plan (1) Septic shock: (2) Hematemesis: (3) Acute respiratory failure with hypoxia: (4) Bacteremia due to Gram-positive bacteria: (5) Renal failure, acute: (6) Anemia: (7) Lactic acid acidosis: Plan Impression: 22-year-old male with no significant past medical history presents to the ICU with acute hypoxic respiratory failure and septic shock from pneumonia. Recommendations: Neuro -discontinuing sedation after extubation Cardiac -severe sepsis with septic shock secondary to gram-positive cocci bacteremia from a lung source. Continue norepinephrine and vasopressin. Currently weaning pressors. Echo with depressed ejection fraction yesterday likely secondary to sepsis. Appreciate cardiology assistance. Continue supportive care Respiratory -minimal ventilator settings and minimal oxygen requirement trial of extubation. Awaiting pleural fluid results continue antibiotics GI -minimal elevation of AST, unclear clinical significance RENAL/LYTES -acute renal failure resolved. Continue electrolyte replacement protocol. Follow urine output -Charles catheter in place for adequate tracking of intake and output ENDO - glycemic control per protocol. Random cortisol was appropriately elevated. HEME -stable anemia. Mild thrombocytopenia today likely secondary to sepsis. No evidence of bleeding. Continue to follow ID -Gram-positive cocci bacteremia, final ID pending. Surveillance blood cultures: no growth Continue Rocephin day #4, d/c doxycycline LINES/IV ACCESS - Right internal jugular line CVC, peripheral IVs, Charles catheter, left radial arterial line DVT PROPHYLAXIS - Subcu heparin I have personally spent 50 minutes of critical care time in the direct management of this patient. This is a life/limb threatening event. This includes time spent evaluating patient, direct bedside care, chart review, placing orders, interpretation of diagnostic studies, discussion with consultants, patient, and family members, as well as other required patient management activities. This time is exclusive of all separately billable procedures, and teaching time and separate from and in addition to any other critical care service time. Discussed with bedside critical care nurse as well as family at bedside Admission and Anticipated Discharge Date Admission Date: December 22, 2022 Subjective No overnight events. Auto diuresing. On minimal vent settings we will proceed with extubation Review of Systems Review of Systems: Unobtainable due to endotracheal tube Physical Exam Physical Exam: General: Sedated. nontoxic. Skin: Warm, dry, Head: Atraumatic Ears, nose, mouth and throat: airway obscured by endotracheal tube Cardiovascular: Normal peripheral perfusion Respiratory: Ventilator settings reviewed Gastrointestinal: Non distended Musculoskeletal: No deformity Results & Data Results & Data Vital Signs (Past 12 Hours) Vital Signs Temp Pulse Resp BP Pulse Ox Pulse Ox O2 Del Method 12/25/22 08:10 121 H 16 12/25/22 07:45 85 20 99 12/25/22 06:30 83 20 98 Mechanical Vent 12/25/22 06:00 37.4 C 88 20 103/56 L 97 Mechanical Vent 12/25/22 05:30 89 20 96 Mechanical Vent 12/25/22 05:00 93 H 20 110/58 L 96 Mechanical Vent 12/25/22 04:30 97 H 20 96 Mechanical Vent 12/25/22 04:10 102 H 20 96 12/25/22 04:00 38.3 C H 103 H 20 108/52 L 98 Mechanical Vent 12/25/22 03:30 100 H 20 97 Mechanical Vent 12/25/22 04:00 12/25/22 03:00 99 H 20 101/47 L 97 Mechanical Vent 12/25/22 02:30 100 H 20 97 Mechanical Vent 12/25/22 02:00 38.1 C H 99 H 20 99/45 L 98 Mechanical Vent 12/25/22 01:30 99 H 20 98 Mechanical Vent 12/25/22 01:00 101 H 20 99/46 L 98 Mechanical Vent 12/25/22 00:30 99 H 20 97 Mechanical Vent 12/25/22 00:00 37.8 C H 102 H 20 105/50 L 98 Mechanical Vent 12/24/22 23:30 102 H 20 97 Mechanical Vent 12/25/22 00:00 12/24/22 23:00 101 H 20 98 12/24/22 23:00 100 H 20 105/52 L 98 Mechanical Vent 12/24/22 22:30 100 H 20 98 Mechanical Vent 12/24/22 22:00 101 H 20 108/52 L 97 Mechanical Vent 12/24/22 21:30 107 H 20 99 Mechanical Vent 12/24/22 22:00 97 12/24/22 21:00 111 H 20 99/51 L 100 Mechanical Vent O2 Del Method FiO2 12/25/22 08:10 30 12/25/22 07:45 30 12/25/22 06:30 30 12/25/22 06:00 30 12/25/22 05:30 30 04/09/23 05:00 30 12/25/22 04:30 30 12/25/22 04:10 30 12/25/22 04:00 30 12/25/22 03:30 30 12/25/22 04:00 30 12/25/22 03:00 30 12/25/22 02:30 30 12/25/22 02:00 30 12/25/22 01:30 30 12/25/22 01:00 30 12/25/22 00:30 30 12/25/22 00:00 30 12/24/22 23:30 30 12/25/22 00:00 30 12/24/22 23:00 30 12/24/22 23:00 30 12/24/22 22:30 30 12/24/22 22:00 30 12/24/22 21:30 40 12/24/22 22:00 Mechanical Vent 12/24/22 21:00 40 Critical Care Results & Data Vital Signs (Past 12 Hours) Vital Signs Temp Pulse Resp BP Pulse Ox Pulse Ox O2 Del Method 12/25/22 08:10 121 H 16 12/25/22 07:45 85 20 99 12/25/22 06:30 83 20 98 Mechanical Vent 12/25/22 06:00 37.4 C 88 20 103/56 L 97 Mechanical Vent 12/25/22 05:30 89 20 96 Mechanical Vent 12/25/22 05:00 93 H 20 110/58 L 96 Mechanical Vent 12/25/22 04:30 97 H 20 96 Mechanical Vent 12/25/22 04:10 102 H 20 96 12/25/22 04:00 38.3 C H 103 H 20 108/52 L 98 Mechanical Vent 12/25/22 03:30 100 H 20 97 Mechanical Vent 12/25/22 04:00 12/25/22 03:00 99 H 20 101/47 L 97 Mechanical Vent 12/25/22 02:30 100 H 20 97 Mechanical Vent 12/25/22 02:00 38.1 C H 99 H 20 99/45 L 98 Mechanical Vent 12/25/22 01:30 99 H 20 98 Mechanical Vent 12/25/22 01:00 101 H 20 99/46 L 98 Mechanical Vent 12/25/22 00:30 99 H 20 97 Mechanical Vent 12/25/22 00:00 37.8 C H 102 H 20 105/50 L 98 Mechanical Vent 12/24/22 23:30 102 H 20 97 Mechanical Vent 12/25/22 00:00 12/24/22 23:00 101 H 20 98 12/24/22 23:00 100 H 20 105/52 L 98 Mechanical Vent 12/24/22 22:30 100 H 20 98 Mechanical Vent 12/24/22 22:00 101 H 20 108/52 L 97 Mechanical Vent 12/24/22 21:30 107 H 20 99 Mechanical Vent 12/24/22 22:00 97 12/24/22 21:00 111 H 20 99/51 L 100 Mechanical Vent O2 Del Method FiO2 12/25/22 08:10 30 12/25/22 07:45 30 12/25/22 06:30 30 12/25/22 06:00 30 12/25/22 05:30 30 12/25/22 05:00 30 12/25/22 04:30 30 12/25/22 04:10 30 12/25/22 04:00 30 12/25/22 03:30 30 12/25/22 04:00 30 12/25/22 03:00 30 12/25/22 02:30 30 12/25/22 02:00 30 12/25/22 01:30 30 12/25/22 01:00 30 12/25/22 00:30 30 12/25/22 00:00 30 12/24/22 23:30 30 12/25/22 00:00 30 12/24/22 23:00 30 12/24/22 23:00 30 12/24/22 22:30 30 12/24/22 22:00 30 12/24/22 21:30 40 12/24/22 22:00 Mechanical Vent 12/24/22 21:00 40 Lab & Micro Results (Past 24 Hours) RBC 3.23 M/uL (4.70-6.10) L 12/25/22 WBC 10.08 K/ul (4.8-10.8) 12/25/22 Hgb 9.6 g/dl (14.0-18.0) L 12/25/22 Hct 28.1 % (42.0-52.0) L 12/25/22 MCV 87.0 fL (80.0-100.0) 12/25/22 MCH 29.7 pg (25.0-34.0) 12/25/22 MCHC 34.2 g/dL (32.0-36.0) 12/25/22 RDW Standard Deviation 41.5 fL (36.4-46.3) 12/25/22 RDW Coefficient of Variation 13.1 % (11.5-14.5) 12/25/22 Plt Count 110 K/uL (130-400) L 12/25/22 MPV 10.3 fL (9.4-12.4) 12/25/22 Neutrophils (%) (Auto) 85.5 % 12/25/22 Lymphocytes (%) (Auto) 4.3 % 12/25/22 Monocytes # (Auto) 0.69 K/uL (0.11-0.59) H 12/25/22 Eosinophils # (Auto) 0.21 K/uL (0-0.50) 12/25/22 Immature Granulocyte % (Auto) 0.5 % 12/25/22 Neutrophils # (Auto) 8.62 K/uL (1.40-6.50) H 12/25/22 Lymphocytes # (Auto) 0.43 K/uL (1.2-3.4) L 12/25/22 Monocytes # (Auto) 0.69 K/uL (0.11-0.59) H 12/25/22 Eosinophils # (Auto) 0.21 K/uL (0-0.50) 12/25/22 Basophils # (Auto) 0.08 K/uL (0-0.2) 12/25/22 Immature Granulocyte # (Auto) 0.05 K/uL (0.01-0.20) 3 Polychromasia 1+ 12/25/22 Na 142 mmol/L (136-145) 12/25/22 K 3.8 mmol/L (3.5-5.1) 12/25/22 Cl 110 mmol/L (98-107) H 12/25/22 CO2 27 mmol/L (21-32) 12/25/22 Anion Gap 5 (3-11) 12/25/22 BUN 9 mg/dl (6-23) 12/25/22 Creatinine 0.66 mg/dl (0.6-1.4) 12/25/22 Estimated GFR ( Amer) > 150.0 ml/min 12/25/22 Estimated GFR (Non-Af Amer) 137.2 ml/min 12/25/22 BUN/Creatinine Ratio 13.6 (10-20) 12/25/22 Glu 99 mg/dl (70-99(Fasting)) 12/25/22 Ca 8.3 mg/dl (8.6-10.3) L 12/25/22 Phosphorus Level 1.2 mg/dl (2.5-4.9) L* 12/25/22 Total Bilirubin 0.5 mg/dl (0.2-1.0) 12/25/22 AST 65 U/L (13-39) H 12/25/22 ALT 17 U/L (7-52) 12/25/22 Alkaline Phosphatase 71 U/L (34-104) 12/25/22 TP 5.1 gm/dl (6.0-8.3) L 12/25/22 Albumin 2.8 gm/dl (3.4-5.0) L 12/25/22 Globulin 2.3 gm/dl (2.5-4.0) L 12/25/22 Albumin/Globulin Ratio 1.2 (0.9-2) 12/25/22 Mg 1.9 mg/dl (1.7-2.4) 12/25/22 05:42 Calcium Level 8.3 mg/dl (8.6-10.3) L 12/25/22 05:42 Bob Test NA 12/25/22 04:14 Microbiology 12/22/22 20:11 Aerobic Blood Culture - Preliminary Blood No growth in Aerobic bottle after 48 hours. Anaerobic Blood Culture - Preliminary No growth in Anaerobic bottle after 48 hours. 12/22/22 18:51 Aerobic Blood Culture - Preliminary Blood Group A Beta Strep Anaerobic Blood Culture - Preliminary Group A Beta Strep 12/23/22 10:00 Gram Stain - Final Bronch Wash, Trach Tree Bronchial Culture - Preliminary Pin-point growth present, reincubating. 12/24/22 08:20 Gram Stain - Final Pleural Fluid Diagnostic Findings (Past 24 Hours) Chest X-Ray 12/24/22 08:32 XR chest 1V portable CLINICAL HISTORY: S/P Thoracentesis COMPARISON STUDY: Chest radiograph performed earlier today. FINDINGS: Tip of endotracheal tube is 4.1 cm above the brayden. Tip of nasogastric tube is within the body of the stomach. Right internal jugular central line remains in place. Right pleural effusion has significantly dec reased in size since prior exam. There is no pneumothorax. Bilateral airspace opacities persist. Right basilar opacity is increased. Cardiomediastinal silhouette is stable. IMPRESSION: 1. No pneumothorax following right thoracentesis. Significant decrease in size of the right pleural effusion. 2. Satisfactory positioning of lines and tubes. 3. Persistent airspace opacities suggestive of multifocal pneumonia. Increase in left basilar opacity. ACT 112: Negative or not required by law. Electronically signed by: Valdo Peterson M.D. 12/24/2022 9:08 AM Chest X-Ray 12/25/22 07:00 XR chest 1V portable CLINICAL HISTORY: Respiratory failure. COMPARISON STUDY: Chest CT December 22, 2022 and chest radiograph December 24, 2022 at 8:49 AM. FINDINGS: Tip of endotracheal tube is 3.9 cm above the brayden. Tip of nasogastric tube is within the body of the stomach. Right internal jugular central line remains in place. No pneumothorax. Small right pleural effusion. Multifocal consolidation persists. Cardiomediastinal silhouette is stable. IMPRESSION: 1. Satisfactory positioning of lines and tubes. 2. Persistent airspace opacities suggestive of multifocal pneumonia. 3. No pneumothorax. ACT 112: Negative or not required by law. Electronically signed by: Valdo Peterson M.D. 12/25/2022 6:56 AM I & O Totals 24 Hours 12/24/22 12/25/22 12/26/22 06:59 06:59 06:59 Intake Total 3820.632 / 3820.632 3614.604 / 3614.604 185.014 / 185.014 Output Total 2290 / 2290 7010 / 7010 Balance 1530.632 / 1530.632 -3395.396 / -3395.396 185.014 / 185.014 Cumulative 12/22/22 17:26 thru 12/25/22 07:59 Intake Total 65746.780 Output Total 9577 Balance 3723.780 RT Ventilator Mngmt (Last Documented) Ventilator Ordered Settings Ventilator Support Mode CPAP 12/25/22 08:10 Respiratory Rate 16 12/25/22 08:10 Ventilator Tidal Volume 480 12/25/22 07:45 Setting Minute Ventilation 13.4 12/25/22 08:10 Ventilator Positive Pressure 10 12/25/22 08:10 Support Setting Positive End Expiratory 5 12/25/22 08:10 Pressure Fraction of Inspired Oxygen 30 12/25/22 08:10 Peak Inspiratory Flow 43 12/23/22 15:23 Machine Comment Patient extubated to 6L 12/25/22 08:30 Ventilator - PT Measurements Respiratory Rate 16 Exhaled Tidal Volume 591 Minute Ventilation 13.4 Peak Inspiratory Airway 30 Pressure Plateau Pressure 15 Respiratory Cycle Inspiratory: 1:2.3 Expiratory Ratio Inspiratory Phase Time 1.0 End-Tidal CO2 41 Static Lung Compliance 48.00 Dynamic Lung Compliance 23.64 Normal Static Lung Compliance 46.00 Patient Measurements Comment performed to thorocentesis on patient, SPO2 decreased during procedure and was increased to 100%, weaned to 40% post Coding Level of Care Code 81365 CRITICAL CARE 1ST 30-74M Diagnoses Septic shock A41.9; R65.21 Hematemesis K92.0 Acute respiratory failure with hypoxia J96.01 Bacteremia due to Gram-positive bacteria R78.81 Renal failure, acute N17.9 Anemia D64.9 Lactic acid acidosis E87.20
--- NOTE | 2022-12-25 10:19 | Cardiology Progress Note ---
Date of Service December 25, 2022 Assessment & Plan (1) Cardiomyopathy: (2) Septic shock: (3) Bacteremia due to Gram-positive bacteria: (4) Acute respiratory failure with hypoxia: Plan Suspect reduced cardiac function secondary to inflammatory mediators rather than pre-existing condition given his excellent physical status just prior to presentation. Clinically improving, no evidence of heart failure or dysrhythmias to suggest declining systolic function. Echocardiogram yesterday had already shown marked improvement in right and left ventricular function, no need for repeat today but would obtain another limited follow-up echocardiogram prior to discharge to ensure ejection fraction has returned to normal. Would recommend gradual increase in physical activity as he rehabilitates after hospital discharge, specific recommendations would be based upon his echocardiographically assessed pre-discharge cardiac function. Hemodynamics currently physiologically appropriate, no medication interventions necessary. We will continue to follow from cardiology standpoint. Admission and Anticipated Discharge Date Admission Date: December 22, 2022 Subjective Substantial clinical improvement overnight, weaned off pressors last night, extubated this morning. Alert and oriented with no chest pain, dyspnea, or other complaints. Telemetry showed sinus tachycardia with no pauses or dysrhythmias. Physical Exam Physical Exam: No acute distress. Tm 100.9 BP 121/76 mmHg currently (off pressors) Pulse 128 bpm and regular Respirations 22 Skin: no ecchymoses or generalized lesions. HEENT: unremarkable. Neck: Jugular venous pulse appears unremarkable, no carotid bruits. Lungs: Good airflow, scattered crackles and rhonchi at the bases, no wheezing. Mildly tachypneic without accessory muscle use. Cardiac: regular rhythm, normal S1 and S2, no murmur or gallop. Abdomen: benign. Extremities: no significant edema, pulses intact, extremities warm with good capillary refill. Neurologic: Answers simple questions appropriate, grossly nonfocal. Results & Data Laboratory Results Normal electrolytes, BUN 9, creatinine 0.66. Diagnostic Findings Chest x-ray improved from pre-thoracentesis x-ray yesterday. PG Care Time/CCT Total # of Minutes Spent Total Time Spent with Patient: Total time spent is greater than 50% in coordination of care (as documented) at patient's floor/unit and/or counseling patient: Coding Level of Care Code 33357 SUB INP/OBS CARE 2/35MIN Diagnoses Cardiomyopathy I42.9 Septic shock A41.9; R65.21 Bacteremia due to Gram-positive bacteria R78.81 Acute respiratory failure with hypoxia J96.01
[2022-12-25] MEDS ORDERED: HYDROmorphone INJ 0.5 MG/0.5 ML SYR IV STA (15:12)
[2022-12-25] MEDS: ALBUT/IPRATROP 3MG/0.5MG NEB 3 ML VIAL NEB PRN (16:57)
[2022-12-25] MEDS: ACETAMINOPHEN 1,000 MG/100 ML VIAL IV PRN (19:07)
--- NOTE | 2022-12-25 20:39 | Communication Note ---
Date of Service: December 25, 2022 At 6:30 PM, patient's parents requested transfer to tertiary center for concern regarding patient's severe sepsis, persistent fevers, and confusion despite being off sedation for half a day. I called [facility] and [facility] transfer centers and spoke to the respective hospitalists. Transfer is not accepted at this time. Attending physician and I spoke to patient and parents at bedside. IV clindamycin will be added. Plan is to consult [facility] telehealth ID in the morning. ATTENDING ADDENDUM Patient's family concerned with persistent fever and continued confusion and asks that we reach out to our nearest tertiary care center for potential transfers. Neither facility accepted patient given his overall improvement and clinical stability. I visited with the patient and talked with both parents this evening at 2030- hours. Patient is awake, alert and partially oriented. He is hemodynamically stable; slightly tachycardic with temp 37.9 Interactive with conversation, although some non-sensical speech (almost "goofy"). 1) With persistent fevers in setting of TSS, will add clindamycin. 2) Consult ID. 3) Suspect neuro status secondary to prolonged sedation and suspect will continue to improve. Discussed with parents if he has no improvement or worsens, will reach out to tertiary care centers again in AM. 4) No indication for neuro imaging tonight - consider CT non-contrast if clinical worsening, followed by MRI - although suspect he would need sedation to for MRI and want to avoid if we can. 5) Continue to wean oxygen as able. 6) Repeat labs/CXR in AM. 7) Echocardiogram shows improvement in left ventricular function which is reassuring. If fever - and subsequently tachycardia persist - would increase IVF to meet increased insensible loss.
[2022-12-25] MEDS: CLINDAMYCIN/D5W 900 MG/50 ML BAG IV SCH (21:24)
[2022-12-25] MEDS ORDERED: CHLORASEPTIC 1.4% SOLN 180 ML BTL MT PRN (22:25)
[2022-12-26] MEDS: ACETAMINOPHEN 1,000 MG/100 ML VIAL IV PRN ×2 (00:23→09:56)
[2022-12-26] MEDS ORDERED: KETOROLAC TROMETHAMINE 15 MG/ML VIAL IV ONE (05:08)
[2022-12-26] MEDS: ALBUT/IPRATROP 3MG/0.5MG NEB 3 ML VIAL NEB PRN (05:16)
[2022-12-26] MEDS ORDERED: SODIUM CHLORIDE 0.9% 1000ML 500 ML IV ONE (05:34)
[2022-12-26] MEDS ORDERED: LIDOCAINE 5% 1 PATCH TD SCH (05:45)
[2022-12-26 05:55] LABS: Alanine Aminotransferase 27 U/L (7-52); Alkaline Phosphatase 139 U/L (34-104); Anion Gap 10 (3-11); Aspartate Aminotransferase 74 U/L (13-39); BUN Creatinine Ratio 15.8 (10-20); Bilirubin Direct 0.1 mg/dl (0-0.2); Bilirubin,Total 0.6 mg/dl (0.2-1.0); Blood Urea Nitrogen 9 mg/dl (6-23); Calcium 8.6 mg/dl (8.6-10.3); Carbon Dioxide 27 mmol/L (21-32); Chloride 106 mmol/L (98-107); Creatinine Clr Calc Pharmacy 203.3 ml/min; Est GFR (African American) > 150.0 ml/min; Est GFR (Non-African American) 145.8 ml/min; Glucose 86 mg/dl (70-99(Fasting)); Magnesium 1.5 mg/dl (1.7-2.4); Phosphorus 2.2 mg/dl (2.5-4.9); Potassium 3.5 mmol/L (3.5-5.1); Sodium 143 mmol/L (136-145); Total Protein 5.5 gm/dl (6.0-8.3)
--- NOTE | 2022-12-26 06:22 | Communication Note ---
Date of Service: December 26, 2022 Evaluated patient for some right sided pleuritic chest pain, given IV Toradol and breathing treatment with resolution in pain and ability to take some deeper breaths. Near febrile, given Tylenol IV. Remains on 4LNC saturating well. Morning CBC, procal, lactate pending. Troponin collected with last collection prior to intubation, trop 2200 this AM without evidence of ST or T wave changes on EKG, will trend. Recent TTE without evidence of pericardial effusion. Serial limited Echo with improvement in EF from 25-30% on admission Echo to 40% on 12/24, suspect heart stress 2/2 respiratory failure and intubation are causes for demand ischemia. Cardiology following, given G+ bacteremia will need evaluation by Cards and ID to determine if LINDA would be warranted, as well as for reevaluation of antibiotics in the setting of ongoing tachypnea and fevers.
[2022-12-26] MEDS: CLINDAMYCIN/D5W 900 MG/50 ML BAG IV SCH ×2 (06:23→13:22)
[2022-12-26 06:34] LABS: Hematocrit (blood only) 30.2 % (42.0-52.0); Hemoglobin 10.4 g/dl (14.0-18.0); Mean Corpuscular Hemoglobin 29.9 pg (25.0-34.0); Mean Corpuscular Hgb Conc 34.4 g/dL (32.0-36.0); Mean Corpuscular Volume 86.8 fL (80.0-100.0); Mean Platelet Volume 10.3 fL (9.4-12.4); Platelet Count 125 K/uL (130-400); RDW Coefficient of Variation 13.2 % (11.5-14.5); RDW Standard Deviation 41.1 fL (36.4-46.3); Red Blood Count 3.48 M/uL (4.70-6.10)
[2022-12-26 06:35] LABS: Troponin I High Sensitivity 2948.7 pg/ml (0-20)
[2022-12-26 06:36] LABS: Basophils # (auto) 0.06 K/uL (0-0.2); Basophils % (auto) 0.4 %; Dohle Bodies 1+; Eosinophils % (auto) 1.5 %; INR 1.2 (0.9-1.1); Immature Granulocytes # (auto) 0.43 K/uL (0.01-0.20); Immature Granulocytes % (auto) 3.2 %; Lymphocytes # (auto) 0.81 K/uL (1.2-3.4); Monocytes # (auto) 1.45 K/uL (0.11-0.59); Monocytes % (auto) 10.7 %; Neutrophils # (auto) 10.55 K/uL (1.40-6.50); Neutrophils % (auto) 78.2 %; Partial Thromboplastin Ratio 1.3; Partial Thromboplastin Time 34.8 Seconds (21.0-31.0); Prothrombin Time 12.2 Seconds (9.0-12.0); Toxic Granulation 1+
[2022-12-26] MEDS: cefTRIAXone SODIUM 2,000 MG in DEXTROSE 5% 50 ML IV SCH (07:32)
[2022-12-26] MEDS: PANTOprazole 40 MG in SYRINGE 0 ML IV SCH (07:32)
[2022-12-26] MEDS: MAGNESIUM SULFATE / D5W 1 GM/100 ML BAG IV SCH ×4 (07:32→12:05)
[2022-12-26] MEDS: HEPARIN SOD 5,000 UNIT/0.5 ML VIAL SQ SCH (07:33)
--- NOTE | 2022-12-26 07:57 | XRay Report ---
XR chest 1V portable HISTORY: 22 years-old Male chest pain acute chest pain with shortness of breath COMPARISON: Chest radiograph 12/25/2022 TECHNIQUE: AP view of the chest FINDINGS: Cardiomediastinal and hilar silhouettes are unchanged. Status post removal of the endotracheal and en teric tubes and right IJ central venous catheter. Persistent airspace opacities suggestive of multifo raoul pneumonia, mildly progressed. Bones appear grossly intact. IMPRESSION: 1. Interval extubation with removal of the right IJ central venous catheter and enteric tube. 2. Mild progression of the multifocal airspace opacities suggestive of pneumonia. 3. No pneumothorax. ACT 112: Negative or not required by law. The above report was generated using voice recognition software. It may contain grammatical, syntax o r spelling errors. Electronically signed by: Lucas Leyva M.D. 12/26/2022 7:56 AM
[2022-12-26] MEDS: LACTULOSE SYRUP 20 GM/30 ML UDC PO SCH (08:33)
[2022-12-26] MEDS: SENNOSIDES 8.8 MG/5 ML UDC PO SCH (08:33)
[2022-12-26] MEDS ORDERED: POTASSIUM PHOS 3 MMOL/1 ML INFUSION IV STA (10:07)
[2022-12-26] MEDS ORDERED: POTASSIUM PHOSPHATE 15 MMOL in SODIUM CHLORIDE 0.9% 250 ML IV ONE (10:15)
--- NOTE | 2022-12-26 15:05 | Discharge Summary ---
Date of Service December 26, 2022 Admission HPI Per Admitting Provider Harrison is a 22 year old male with a PMH significant for previous kidney stones who presented to the [facility] ED on 12/22/22 with a chief complaint of right-sided chest pain. In the ED the patient was initially found to afebrile, hypotensive at 79/46, and hypoxic at 86% on RA. Labs were remarkable for a CBC WNL, D-dimer of 1140, stable Cr of 1.10, lactate of 2.5, total bili of 1.2, otherwise LFT's WNL, initial high sen trop of 4.1,. Chest xray was read as "Hazy asymmetric right mid to upper lung airspace opacity. The radiographic appearance is nonspecific but statistically reflects pneumonia. Post treatment radiographs to ensure resolution are recommended.". CTA of the chest with PE protocol was read as "Airspace consolidation in the right upper lobe, consistent with lobar pneumonia.". CT of the abd/pelvis w/IV con was read as "1. Mild wall thickening of small bowel, correlate for mild enteritis. 2.Liquid stool in the colon, consistent with diarrheal disease.". Prior to admission the patient received his sepsis fluid bolus of 2L NSS, a dose of vancomycin and Zosyn, 2 mg IV morphine, 15 mg IV toradol, and 4 mg IV zofran. At the time of the exam the patient was sitting in bed and appears acute ill, currently saturating at 90% on 10L Oxymask. He states that he has had a non- productive cough for "a few months". He was out drinking last night and states that he had multiple episodes of nausea an vomiting since. He states he woke up this am with right chest pain with radiation to his right back. He has been having a productive cough with blood-tinged sputum. He denies being on any medications at this time. When asked about his current work of breathing he states he feels as though he can only take shallow breaths due to his chest pain. He has been having fevers and chills and currently has epigastric abdominal pain. He denies recent fever, chills, dysuria, hematuria, and recent trauma. Please refer to Dr. Mccann's attestation for any changes to the treatment plan Principal Diagnosis Severe Sepsis Discharge Exam Constitutional well developed and well nourished Eyes + anicteric sclerae ENMT external ear and nose normal, oropharynx normal Mouth: no muffled voice Neck trachea midline, no thyromegaly Respiratory normal respiratory effort Auscultation: + rhonchi Cardiovascular RRR, no murmur, no edema Chest (Breasts) normal inspection/palpation of breasts Gastrointestinal (Abdomen) normal bowel sounds, soft, nontender, no hepatosplenomegaly Musculoskeletal Head/Neck/Chest: normocephalic and head atraumatic Skin no rashes, warm and dry Neurologic moves all extremities Psychiatric Orientation: alert Discharge Data Allergies Allergy/AdvReac Type Severity Reaction Status Date / Time No Known Allergies Allergy Verified 12/22/22 20:27 Consultations 12/22/22 19:58 ED Decision to Admit Stat 12/22/22 22:42 Consult [employer] Routine 12/23/22 11:28 Consult Cardiology Routine Ordered Studies 12/22/22 18:48 CT abd pelvis IV con only Stat CT angio chest PE protocol Stat 12/22/22 23:18 US point of care ultrasound Stat Hospital Course (1) Acute respiratory failure with hypoxia: 22yo male with a history of nephrolithiasis (s/p laser extraction in 2020) and no other PMHx who presents with acute hypoxic respiratory failure and septic shock secondary to strep pyogenes pneumonia and bacteremia, requiring ICU care with mechanical ventilation and pressor support, extubated 12/25/22 AM. Acute hypoxic respiratory failure Secondary to multifocal pneumonia; group A Beta Strep bacteremia Extubated 12/25/22 AM. 90% on 4L nasal canula, transferred to [facility] for ID in house. Accepted by Dr. Diehl, Internal Medicine Septic shock, resolved to sepsis No longer requiring norepinephrine and vasopressin Continued fever of 38Cs Procal elev to 78 at admission Severe presentation for patient w/ no risk factors. Considered strep toxic shock syndrome. Multifocal pneumonia and group A strep bacteremia Started as RUL pneumonia (possible aspiration etiology) progressed to bilateral - possible aspiration events (ocean water 09/2022, etoh several days prior to admission) Blood (1/2 tube), bronch, and expectorated cultures with group A beta strep, follow. Biofire w/ strep pyogenes. Zosyn deescalated to Rocephin 2g q24h and doxycycline, added clindamycin on 12/25/22 Small right parapneumonic effusion, s/p thoracentesis Acute cardiomyopathy Echo: severe global hypokinesis, EF 25-30%, IVC moderately dilated. 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 If worsens, can consider etiologies. Thrombocytopenia, mild Trend Hyponatremia, mild Trend Elevated liver enzymes, downtrending 2/2 sepsis Hematemesis Protonix IV BID LISA, resolved Autodiuresing 12/24 evening. 24 hr net neg 3L. Follow volume status. Net pos 3.4L this admission. Code status: full DVT ppx: heparin sq 5000u q12h Dispo: Transfer (2) Aspiration pneumonia: (3) Cardiomyopathy: (4) Septic shock: (5) Bacteremia due to Gram-positive bacteria: (6) Anemia: (7) Lactic acid acidosis: (8) Thrombocytopenia: Total Time Total Time Spent Total Time Spent (In Minutes): <30 Discharge Plan Discharge Items Patient Disposition: Transfer Acute [facility] Reason For Visit: RIGHT CHEST PAIN Discharge Diagnosis: severe sepsis Activity: Per Instructions section Non-emergency contact: Primary Care Provider Call non-emergency contact if: you have any medication questions Follow-up/Referrals: PCP,NO [Primary Care Provider] - Diet: Regular Addtl Attending Provider Instructions: Acute respiratory failure with hypoxia: Plan: 22yo male with a history of nephrolithiasis (s/p laser extraction in 2020) and no other PMHx who presents with acute hypoxic respiratory failure and septic shock secondary to strep pyogenes pneumonia and bacteremia, requiring ICU care with mechanical ventilation and pressor support, extubated 12/25/22 AM. Acute hypoxic respiratory failure Secondary to multifocal pneumonia; group A Beta Strep bacteremia Extubated 12/25/22 AM. 90% on 4L nasal canula Septic shock, resolved to sepsis No longer requiring norepinephrine and vasopressin Continued fever of 38Cs Procal elev to 78 at admission Severe presentation for patient w/ no risk factors. Considered strep toxic shock syndrome. Multifocal pneumonia and group A strep bacteremia Started as RUL pneumonia (possible aspiration etiology) progressed to bilateral - possible aspiration events (ocean water 09/2022, etoh several days prior to admission) Blood (1/2 tube), bronch, and expectorated cultures with group A beta strep, follow. Biofire w/ strep pyogenes. Zosyn deescalated to Rocephin 2g q24h and doxycycline Small right parapneumonic effusion, s/p thoracentesis Acute cardiomyopathy Echo: severe global hypokinesis, EF 25-30%, IVC moderately dilated. 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 If worsens, can consider etiologies. Thrombocytopenia, mild Trend Hyponatremia, mild Trend Elevated liver enzymes, downtrending 2/2 sepsis Hematemesis Protonix IV BID LISA, resolved Autodiuresing 12/24 evening. 24 hr net neg 3L. Follow volume status. Net pos 3.4L this admission. FEN/GI: NPO. Plasma-Lyte 30mL/hr Code status: full DVT ppx: heparin sq 5000u q12h Dispo: ICU (2) Aspiration pneumonia: (3) Cardiomyopathy: (4) Septic shock: (5) Bacteremia due to Gram-positive bacteria: (6) Anemia: (7) Lactic acid acidosis: (8) Thrombocytopenia: Pending Studies at Discharge: Yes Studies:: Legionella antigen Stand-Alone Forms: [facility] Skilled Items Patient informed of condition?: Yes DNR: No Discharge Level of Care: Other Communicable Disease: No Discharge Prognosis: Improving Lines: Peripheral IV Urinary Catheter: No Medications and DC Order Prescriptions: Continued ibuprofen [Advil] 200 mg Tablet 400 mg PO Q6H PRN (Reason: Fever Or Pain) Discharge Orders: Discharge Order (Routine); Ordered 12/26/22 Ordered By: Manuel Dominguez Admission Data Admit Date/Time: 12/22/22 21:13 Attending Provider: Harrison Juarez Admit Provider: Jem Bullock Primary Care Provider: PCP,NO Other Providers: Julia Rodriguez ; Na Mccann ; Stephen Feliz ; Graham Newton Supervising Physician Co-Signing Physician Notes I personally examined the patient and verified all sheth points of history and exam, discussed case, and agree with decision making with Dr Sparrow May be a bit more right-sided pleuritic type pain, but otherwise feeling better. Definitely no longer confused. Family has helped facilitate connections for transfer to [facility]. Patient pleased with this. Mom present at the bedside, updated as well. Vitals noted, in general he is awake and alert very fatigued but oriented, no distress. Does have some coughing fits during our conversation. Breathing however is unlabored no accessory muscles. Skin without rashes pallor or icterus. Chest x-ray noted and does appear to have slightly progressed infiltrate compared to the previous, CBC and CMP as well as troponin noted. Echocardiogram as noted. IMPRESSION AND PLAN Acute respiratory failure with hypoxia Septic shock Multifocal pneumonia, strep bacteremia Status postextubation yesterday, mild confusion not surprising given overall situationappears to have been a metabolic encephalopathy that is clearing. Hemodynamically stable without the use of pressors Follow-up echocardiogram shows improvement in left ventricular function, which is reassuring Mild transaminitis, not surprising in setting of sepsis, improving -With strep bacteremia and no in-house infectious disease, as well as some degree of worsening pneumonia accompanied by pleuritic pain with no in-house thoracic surgery, family's request to transfer to tertiary seems quite reasonableunfortunately this was facilitated today. Continue current care otherwise.
--- NOTE | 2022-12-26 16:53 | Billing Data ---
Date of Service December 26, 2022 Coding Level of Care Code 04931 IN/OBS DISCH 30 MIN/LESS
--- NOTE | 2022-12-27 05:52 | Electrocardiogram Report ---
Test Reason : Blood Pressure : / mmHG Vent. Rate : 090 BPM Atrial Rate : 090 BPM P-R Int : 184 ms QRS Dur : 106 ms QT Int : 364 ms P-R-T Axes : 056 005 027 degrees QTc Int : 445 ms Poor data quality, interpretation may be adversely affected Normal sinus rhythm ST elevation, consider early repolarization When compared with ECG of 22-DEC-2022 17:47, Incomplete right bundle branch block is no longer Present Confirmed by Nicholas Odom ([id number]) on 12/27/2022 5:52:07 AM Referred By: REFERRED SELF Confirmed By:Nicholas Odom
== END 2022-12-26 15:04 | disposition short-term general hospital (02) | DRG 871 ==
LOC: ED 17:26 → 1E 21:13 → SUATTDRO 21:13 → 1E 21:56 → 2S 12-26 04:15